=== PATIENT | female | born 1980 | race Caucasian/White ===

== ENCOUNTER 2020-05-23 08:18 | Outpatient (REF) | payer OTHER, SELFPAY | END 2020-05-23 08:19 | disposition home or self-care (01) | LOC: HO.WFDLDS 08:18 | PROVIDERS: PCP Pediatrics; Visit Provider Internal Medicine | DX: Z20.828 Contact with and (suspected) exposure to other viral communicable diseases (principal) | CPT/HCPCS: 87635 ==

== ENCOUNTER 2020-12-12 14:50 | Outpatient (REF) | payer OTHER, SELFPAY ==
[2020-12-13 11:25] LABS: BV Int Neg Control Negative (Negative); BV Int Pos Control Positive (Positive)
[2020-12-13 12:06] LABS: CT PCR NOT DETECTED (Not Detect.); NG PCR NOT DETECTED (Not Detect.)
== END 2020-12-12 14:51 | disposition home or self-care (01) ==
LOC: HO.LAB 14:50
PROVIDERS: PCP Pediatrics; Referring Provider Pediatrics; Visit Provider Obstetrics & Gynecology
DX: Z01.419 Encounter for gynecological examination (general) (routine) without abnormal findings (principal); Z11.3 Encounter for screening for infections with a predominantly sexual mode of transmission
CPT/HCPCS: 87480; 87491; 87510; 87591; 87660

== ENCOUNTER 2021-04-27 14:54 | Outpatient (REF) | payer OTHER, SELFPAY ==
--- NOTE | ~2021-04-27 | MM_ITS ---
EXAMINATION: MM SCREENING DIGITAL BREAST TOMOSYNTHESIS, BILATERAL CLINICAL INFORMATION: Screening. Asymptomatic. The lifetime risk of breast cancer based on the Tyrer-Cuzick Model is 15%. COMPARISON: Mammography: 04/25/2020, 11/18/2018 (baseline). TECHNIQUE: Digital breast tomosynthesis is performed in both the craniocaudal and mediolateral oblique views along with computer-aided detection (CAD). Synthesized 2D images are generated from the tomosynthesis. Additional exaggerated left CC view is provided. FINDINGS: The breasts are heterogeneously dense, which may obscure small masses (ACR BI-RADS breast composition Category c). There are no significant masses, abnormal calcifications, or other abnormalities. No developing density. No significant changes. The skin contours are smooth. MM/MM tomosynthesis screening BI IMPRESSION: No mammographic evidence of malignancy. ASSESSMENT: BI-RADS 1: Negative RECOMMENDATION: Routine annual mammography screening. This patient's information was entered into a reminder system with a target due date for their next mammogram.
== END 2021-04-27 14:55 | disposition home or self-care (01) ==
LOC: HO.MAMMO 14:54
PROVIDERS: PCP Pediatrics; Visit Provider Obstetrics & Gynecology
DX: Z12.31 Encounter for screening mammogram for malignant neoplasm of breast (principal)
CPT/HCPCS: 77063; 77067

== ENCOUNTER 2022-02-12 14:38 | Outpatient (REF) | payer OTHER, SELFPAY ==
[2022-02-16 12:42] LABS: HPV mRNA E6/E7 rflx Not Detected (Not Detected)
== END 2022-02-12 14:39 | disposition home or self-care (01) ==
LOC: HO.LAB 14:38
PROVIDERS: Visit Provider Advanced Practice Midwife
DX: Z01.419 Encounter for gynecological examination (general) (routine) without abnormal findings (principal); Z11.51 Encounter for screening for human papillomavirus (HPV)
CPT/HCPCS: 87624; 88142

== ENCOUNTER 2022-04-30 14:33 | Outpatient (REF) | payer OTHER, SELFPAY ==
--- NOTE | ~2022-04-30 | MM_ITS ---
EXAMINATION: MM SCREENING DIGITAL BREAST TOMOSYNTHESIS, BILATERAL CLINICAL INFORMATION: Screening. Asymptomatic. The lifetime risk of breast cancer based on the Tyrer-Cuzick Model is 15%. COMPARISON: Mammography: 04/27/2021, 04/25/2020, 11/18/2018 (baseline) TECHNIQUE: Digital breast tomosynthesis is performed in both the craniocaudal and mediolateral oblique views along with computer-aided detection (CAD). Synthesized 2D images are generated from the tomosynthesis. FINDINGS: There are scattered areas of fibroglandular density (ACR BI-RADS breast composition Category b). There are no significant masses, abnormal calcifications, or other abnormalities. Parenchymal pattern is similar to prior studies. There is no developing density or architectural abnormality. The axilla are unremarkable. Mild chronic nipple retraction is stable. No skin thickening. MM/MM tomosynthesis screening BI IMPRESSION: No significant changes from prior studies. ASSESSMENT: BI-RADS 2: Benign RECOMMENDATION: Routine annual mammography screening. This patient's information was entered into a reminder system with a target due date for their next mammogram.
== END 2022-04-30 14:34 | disposition home or self-care (01) ==
LOC: HO.MAMMO 14:33
PROVIDERS: Visit Provider Pediatrics
DX: Z12.31 Encounter for screening mammogram for malignant neoplasm of breast (principal)
CPT/HCPCS: 77063; 77067

== ENCOUNTER 2023-02-14 11:14 | Outpatient (AMB) | payer OTHER, SELFPAY ==
--- NOTE | 2023-02-14 11:19 | A.OFFVIS_ITS ---
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 Scribed for CLEMENT Gaston by Shabana Franz medical detailist, on 02/14/2023 EST. Business Improvement Manager Required: No Information Interpreted: non-clinical & clinical Photogrammetric Engineer: Photogrammetric Engineer Present (Sisi BURRIS) Accompanied by: Self / Same As Patient Allergies No Known Allergies Allergy (Verified 02/14/23 11:24) Is last menstrual period known: Yes HPI HPI Comments History of Present Illness Details She is a premenopausal woman presenting for annual exam. She admits to eating healthy and tries to stay active with exercise. Currently sexually active. Uses OCP's continuously, and is experiencing light spotting during time menses should occur. She denies any contraindications to control such as: migraines with aura, history of DVT or pulmonary emboli, high blood pressure, liver disease, thrombolic disorders, Lupus, +RYDER, or smoking. Denies vaginal itching and irritation. Vaginal dryness. She has some irritation with K-Y jelly use, an is wondering what to use as a replacement. Denies family hx of colon and ovarian cancer. Last pap smear 02/13/22 Last mammogram 04/30/22 [facility] Medical History Abnormal Pap smear of cervix Gallstone of bile duct with obstruction Surgical History History of loop electrical excision procedure (LEEP) Hx of appendectomy Hx of cholecystectomy Family History Sister Breast cancer, Onset Age: 47 Father HTN (hypertension) Mother HTN (hypertension) Social History Household Members: None Housing: House Alcohol intake: current Alcohol intake frequency: holidays/special occasions only Patient Tobacco Use Status: Former Tobacco user service: No Current occupational status: employed 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 ,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 Sexual orientation: Straight/Heterosexual Gender identity: Female Female Reproductive History Menstrual Age of Menarche: 14 control method: pills Total pregnancies: 3 Full term: 2 Number of Living Children: 2 Ab induced: 1 Date of last pap smear: 02/13/22 Date of Mammogram: 04/30/22 Physical Exam Vital Signs: Last Vital Signs BP 116/70 02/14/23 11:23 BMI result Body Mass Index 25.8 Const General: cooperative, healthy appearing, no acute distress, well developed and alert Orientation/consciousness: patient oriented x3 HEENT Head: Yes normal to inspection Eyes General: appearance normal, both eyes and all related structures Neck Neck: Yes normal visual inspection Thyroid: Thyroid normal Chest Chest palpation & inspection: normal inspection of the chest Breast/axilla inspection: normal inspection of the breasts (no puckering, dimpling, peau de orange, retraction, discharge, masses) Breast/axilla palpation: normal palpation of the breasts Resp Effort & Inspection: normal respiratory effort GI Inspection: Yes normal to inspection Palpation (GI): Soft to palpation (to palpation) Rectal Exam - Female: deferred General: Yes bladder normal to inspection External Female Exam: normal external appearance and normal appearance of the urethra Speculum Exam - Vagina: normal appearance of the vagina, normal palpation and normal vaginal discharge Speculum Exam - Cervix: normal appearance of the cervix and normal palpation Bimanual exam- vagina & uterus: normal palpation and normal palpation Bimanual Exam- Adnexa, other: normal adnexae and no masses Skin General skin exam: no rashes or lesions noted Neuro General: patient oriented x3 Cognition (Neuro): normal cognition Extrem General: Yes normal to inspection Psych Attitude: cooperative Thought process: Normal thought process present Assessment & Plan Assessment & Plan (1) Encounter for annual routine gynecological examination: Code(s): Z01.419 - Encounter for gynecological examination (general) (routine) without abnormal findings Plan Discussed: Current recommendations for pap smears per ASCCP guidelines Breast awareness and periodic self breast exams. Maintaining a healthy lifestyle including a well balanced diet and routine exercise. Warnings: go to ER if and loss of vision/blindness, severe headache, chest pain or difficulty breathing, severe abdominal pain, or any pain or swelling in an extremity. Recommend Replens, Astroglide or coconut oil for vaginal dryness. All of her questions and concerns were addressed to the best of my ability. RTO in one year for AG. Medications: Refilled norgestimate-ethinyl estradiol 0.25-35 mg-mcg Skip the placebo pills, starting a new pack every 3 weeks 1 tab PO DAILY 84 tabs 4RF Z30.40 - Encounter for surveillance of contraceptives, unspecified Coding Level of Care Code Est Pt Prev Care 40-64y(33715) Diagnoses Encounter for annual routine gynecological examination Z01.419
[2023-02-14 11:23] VITALS: BP 116/70; BMI 25.8
== END 2023-02-14 11:55 | disposition home or self-care (01) ==
LOC: HO.HWS 11:14
PROVIDERS: PCP Pediatrics; Visit Provider Advanced Practice Midwife
DX: Z01.419 Encounter for gynecological examination (general) (routine) without abnormal findings (principal)
CPT/HCPCS: 99396

== ENCOUNTER → 2023-02-14 11:14 | Outpatient (BNVA) | payer OTHER, SELFPAY | PROVIDERS: PCP Pediatrics; Visit Provider Advanced Practice Midwife ==

== ENCOUNTER 2023-05-06 14:49 | Outpatient (REF) | payer OTHER, SELFPAY ==
--- NOTE | ~2023-05-06 | MM_ITS ---
EXAMINATION: MM SCREENING DIGITAL BREAST TOMOSYNTHESIS, BILATERAL CLINICAL INFORMATION: Screening. Asymptomatic. The patient's family history breast cancer is significant for her sister having been diagnosed at age 48. COMPARISON: Mammography: This study is compared with prior exams dating back to 2019. TECHNIQUE: Digital breast tomosynthesis is performed in both the craniocaudal and mediolateral oblique views along with computer-aided detection (CAD). Synthesized 2D images are generated from the tomosynthesis. FINDINGS: The breasts are heterogeneously dense, which may obscure small masses (ACR BI-RADS breast composition Category c). In the 11-12 o'clock region of the left breast, there is a focal asymmetry which warrants additional mammographic imaging. Sonography may be performed at the discretion of the diagnostic radiologist. In the right breast, no are no significant masses, abnormal calcifications, or other abnormalities. MM/MM tomosynthesis screening BI IMPRESSION: Focal asymmetry of the left 11-12 12:00 region of the left breast warrants additional mammographic imaging. Sonography is at the discretion of the diagnostic radiologist. No mammographic signs of malignancy right breast. ASSESSMENT: BI-RADS BI-RADS 0 - Incomplete: Needs additional Imaging. RECOMMENDATION: 1. Additional views of the right breast 2. Targeted ultrasound if warranted after review of the additional views. 3. Radiology department staff will contact the patient for additional imaging. Additional Imaging required This examination should not preclude the clinical evaluation of a suspicious palpable abnormality. This patient's information was entered into a reminder system with a target due date for their next mammogram.
== END 2023-05-06 14:50 | disposition home or self-care (01) ==
LOC: HO.MAMMO 14:49
PROVIDERS: Visit Provider Pediatrics
DX: Z12.31 Encounter for screening mammogram for malignant neoplasm of breast (principal)
CPT/HCPCS: 77063; 77067

== ENCOUNTER → 2023-05-06 15:00 | Outpatient (BNV) | payer OTHER, SELFPAY | PROVIDERS: Visit Provider Radiology Diagnostic Radiology | DX: Z12.31 Encounter for screening mammogram for malignant neoplasm of breast (principal) | CPT/HCPCS: 77063; 77067 ==

== ENCOUNTER 2023-07-02 14:57 | Outpatient (REF) | payer OTHER, SELFPAY ==
--- NOTE | ~2023-07-02 | US_ITS ---
EXAMINATION: MM DIAGNOSTIC DIGITAL BREAST TOMOSYNTHESIS, LEFT US BREAST LIMITED, LEFT MAMMOGRAPHY: CLINICAL INFORMATION: Callback from screening for focal asymmetric density central left breast seen on screening exam. The patient's family history breast cancer is significant for her sister having been diagnosed at age 48. COMPARISON: Mammography: 05/06/2023, and dating back to 11/18/2018. TECHNIQUE: Digital breast tomosynthesis is performed in the following views: Full-field left LANA mediolateral view, and 3-D spot compression left CC and left MLO views. FINDINGS: The breasts are heterogeneously dense, which may obscure small masses (ACR BI-RADS breast composition Category c). Spot compression and diagnostic views demonstrate a persistent irregular asymmetric density within the central left breast approximately 11:00 axis, highly suspicious. This is seen on all 3 diagnostic views. This will be evaluated by ultrasound. ULTRASOUND: CLINICAL INFORMATION: Evaluate focal asymmetric density central left breast. COMPARISON: No prior ultrasound. TECHNIQUE: Targeted sonographic evaluation was performed using a high frequency linear transducer. Attention was paid to the central left breast and axilla. Selected archived documentation. FINDINGS: LEFT BREAST: Within the 11:00 axis left breast, 1 cm from the nipple, there is a markedly hypoechoic markedly irregular lobulated vascular mass with some posterior acoustic shadowing, with estimated diameter of approximately 2.3 x 2.7 by a 3.2 cm. This correlates well with the abnormality seen on mammography within the central left breast. Ultrasound-guided biopsy recommended. Within the left axilla, there is a large pathologic lymph node measuring 3.9 x 2.3 x 1.9 cm, with near complete effacement of the fatty hilum, and cortex thickened up to 2.0 cm. Ultrasound-guided biopsy recommended of this abnormality as well. US/US breast LT limited mamm only IMPRESSION: 1. Large irregular spiculated hypoechoic lobulated mass within the central left breast measuring up to 3.2 cm. This is highly suspicious and ultrasound-guided biopsy recommended. 2. Pathologic enlarged left axillary lymph node measuring up to 3.9 cm with cortex measuring up to 2.0 cm thickness. This is also highly suspicious and ultrasound-guided biopsy is recommended. Findings and recommendations were discussed with the patient in detail, and also with the patient's sister. OVERALL ASSESSMENT: Mammography: BI-RADS 5 - Highly suggestive of malignancy Ultrasound: BI-RADS 5 - Highly suggestive of malignancy RECOMMENDATION: Biopsy recommended
== END 2023-07-02 14:58 | disposition home or self-care (01) ==
LOC: HO.MAMMO 14:57
PROVIDERS: PCP Internal Medicine; Visit Provider Internal Medicine
DX: R92.8 Other abnormal and inconclusive findings on diagnostic imaging of breast (principal)
CPT/HCPCS: 76642; 77061; 77065

== ENCOUNTER → 2023-07-02 15:00 | Outpatient (BNV) | payer OTHER, SELFPAY | PROVIDERS: PCP Internal Medicine; Visit Provider Radiology Diagnostic Radiology | DX: N63.22 Unspecified lump in the left breast, upper inner quadrant (principal) | CPT/HCPCS: 76642; 77061; 77065 ==

== ENCOUNTER 2023-07-08 08:33 | Outpatient (AMB) | payer OTHER, SELFPAY ==
--- NOTE | 2023-07-08 08:34 | A.OFFVIS_ITS ---
Intake Vital Signs 07/08/23 08:45 Height 5 ft 8 in Weight 179 lb 2 oz BMI 27.2 BP 130/80 Blood Pressure Location Lt brachial Position Sitting Intake Visit Reasons: US BX LEFT BREAST Intake Note: Patient is seen in office for ultrasound biopsy consult of the left breast. Pt c/o: denies any concerns regarding the breast, no lump, bump, discharge, redness, or prior breast surgeries Instructional Materials Director Required: No Tube Coverer: Tube Coverer Present Accompanied by: Self / Same As Patient Allergies No Known Allergies Allergy (Verified 07/08/23 08:45) HPI HPI Comments History of Present Illness Details 42-year-old female patient presenting with a recent screening mammogram with follow-up images obtained on 07/02/2023 which revealed a large, irregular, spiculated hypoechoic lobulated mass within the left breast centrally, measuring 3.2 cm felt to be highly suspicious for malignancy. This was confirmed on left breast ultrasound. In addition a left axillary lymph node enlargement was identified measuring up to 3.9 cm, also felt to be suspicious. Ultrasound biopsy was recommended (BI-RADS 5). She denies any palpable mass in either breast but does have some soreness in the left axilla. She denies any previous history of breast problems or breast surgery. She does report undergoing a flu vaccine in April and developed some soreness in the left arm following the injection. Family history is significant for her sister developing breast cancer at the age of 48. she is uncertain if any genetic testing was performed. She is with 1 AB. 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 Sexual orientation: Straight/Heterosexual Gender identity: Female Female Reproductive History Menstrual Age of Menarche: 14 Total pregnancies: 3 Number of Living Children: 2 Date of Mammogram: 07/02/23 Review of Systems Const All systems reviewed & are unremarkable except as noted in HPI and below Denies chills, Denies fever(s), Denies headache(s), Denies poor appetite and Denies weakness ENT Denies headache(s) Card Denies chest pain, Denies irregular heart rhythm, Denies palpitations and Denies dyspnea Resp Denies cough, Denies excessive phlegm production and Denies dyspnea GI Denies abdominal pain, Denies bloating, Denies change in bowel habits, Denies constipation, Denies heartburn, Denies diarrhea, Denies nausea and Denies vomiting Denies urinary frequency and Denies nipple discharge Musc Denies back pain, Denies muscle weakness and Denies numbness Skin/Breast Details: Chronically inverted nipples bilaterally Denies breast swelling, Denies breast skin changes, Denies breast pain, Denies changing lesions, Denies nipple discharge and Denies unusual bruising Neuro Denies headache(s), Denies numbness, Denies paresthesias and Denies weakness Psych Denies anxiety and Denies depression Endo Denies palpitations Delgado/Lymph Denies lymphadenopathy Physical Exam Const General: cooperative and no acute distress Nutritional Appearance: well nourished Orientation/consciousness: patient oriented x3 Limitations: no limitations HEENT Head: Yes normocephalic and Yes atraumatic Ears: hearing grossly normal bilaterally Chest Other: bilateral inverted nipples. Left breast: No skin change, no nipple retraction, no nipple discharge, no palpable mass, no enlarged lymph nodes. No palpable mass noted in the 11 o'clock position corresponding to the mammographic findings. Right breast: No skin change, no nipple retraction, no nipple discharge, no palpable mass, no enlarged lymph nodes Resp Effort & Inspection: normal respiratory effort, no audible wheezes, no cough and no respiratory distress Cardio Jugular venous distension: no JVD GI Inspection: Yes normal to inspection Skin Other: Warm, dry, no rash Neuro General: patient oriented x3 Extrem General: Yes no clubbing, cyanosis or edema Assessment & Plan Assessment & Plan (1) Abnormal ultrasound of breast: Code(s): R92.8 - Other abnormal and inconclusive findings on diagnostic imaging of breast Plan 42-year-old female patient found to have a spiculated mass in the left breast in the central portion on a recent mammogram felt to be highly suspicious of malignancy (BI-RADS 5 ). This was confirmed on ultrasound as well. A large lymph node is also identified in the left axilla felt to be suspicious. Ultrasound-guided core biopsy of both lesions is recommended. She is scheduled at the [facility] for later today ( 07/08/2023) for this ultrasound-guided core biopsy. We also discussed genetic testing given her strong family history of breast cancer. This can be performed in her follow-up visits. I reviewed the procedure in detail and she expressed understanding and agrees with the plan. She will follow-up in 1 week review the pathology results. She is welc ome to call sooner for any questions or problems. Orders: Orders US breast ndl core biopsy LT Today R92.8 - Other abnormal and inconclusive findings on diagnostic imaging of breast US biopsy lymph node Today R59.0 - Localized enlarged lymph nodes Coding Level of Care Code New Pt Level 4 (81782) Diagnoses Abnormal ultrasound of breast R92.8
[2023-07-08 08:45] VITALS: BP 130/80; BMI 27.2
== END 2023-07-08 09:11 | disposition home or self-care (01) ==
PROVIDERS: PCP Internal Medicine; Visit Provider Surgery
DX: R92.8 Other abnormal and inconclusive findings on diagnostic imaging of breast (principal)
CPT/HCPCS: 99204

== ENCOUNTER 2023-07-08 09:50 | Outpatient (REF) | payer OTHER, SELFPAY ==
--- NOTE | ~2023-07-08 | MM_ITS ---
PROCEDURE: US GUIDED BREAST BIOPSY, (2 SITES) left breast 12:00 axis and left axilla enlarged lymph node. CLINICAL INFORMATION: -Large irregular mass left breast 12:00 axis recommended for biopsy. -Enlarged lymph node left axillary recommended for biopsy. COMPARISON: 07/02/2023, 05/06/2023. PROCEDURAL DETAILS: The details of the procedure, as well as the risks, benefits, and alternatives to the procedure were explained to the patient in detail and all of her questions were answered, after which written informed consent was obtained. Site and side were confirmed. SITE A: Sonography revealed a large multilobulated hypoechoic shadowing mass measuring up to 3.2 cm in the central left breast at the 11:00 to 12:00 axis. A time-out was performed, the lesion intended for biopsy was targeted, and the skin of the left breast was then prepped and draped in the usual sterile fashion. Using sonographic guidance, sterile technique, and 1% lidocaine without epinephrine for local anesthesia, multiple core biopsies were obtained through the targeted area with a 14G spring loaded Sertera core biopsy device. There was real-time confirmation of appropriate needle passage. Sampling was documented. At the completion of tissue sampling, a single butterfly-shaped metallic clip was deposited at the biopsy site. SITE B: sonography revealed a markedly enlarged left axillary lymph node measuring up to 3.4 cm in diameter with cortex measuring up to 2.0 cm. A time-out was performed, the lesion intended for biopsy was targeted, and the skin of the left axilla was then prepped and draped in the usual sterile fashion. Using sonographic guidance, sterile technique, and 1% lidocaine without epinephrine for local anesthesia, multiple core biopsies were obtained through the targeted area with a 14G spring loaded Sertera core biopsy device. There was real-time confirmation of appropriate needle passage. Sampling was documented. At the completion of tissue sampling, a single open coil-shaped metallic clip was deposited at the biopsy site within the lymph node. There was no evidence of immediate complication. SPECIMEN: Appropriate samples obtained. DIGITAL POST-PROCEDURE MAMMOGRAPHY: Breast density: The tissue is heterogeneously dense which may obscure small masses. BI-RADS version 5, category C. The postprocedure 2-view direct digital mammogram reveals satisfactory positioning of the SITE A butterfly-shaped biopsy clip. The SITE B open coil biopsy clip could not be visualized due to its position within the axilla. Sonographically it is documented in good position. The patient tolerated the procedure well and, after assuring adequate hemostasis, was discharged in good condition after reviewing postbiopsy breast care instructions. Final pathology results are pending. MM/MM tomosynthesis diagnostic LT IMPRESSION: 1. No immediate complication from ultrasound-guided percutaneous biopsy left breast mass and pathologic left axillary lymph node. 2. Ultrasound was used to localize and guide marker clip placement at both sites. 3. The 2-view direct digital postprocedure mammogram reveals satisfactory positioning of the butterfly-shaped metallic biopsy clip within the mass at about 7-12:00 left breast. The open coil biopsy clip could not be visualized within the left axillary lymph node due to its position although sonographically was documented in good position. 4. Final pathology results are pending. A separate report with final recommendations will be issued once these results are made available.
[2023-07-08] MEDS: Lidocaine HCl 1 % 20 ML VIAL SUBCUT (12:26)
[2023-07-08] MEDS: Sodium Bicarbonate 8.4% 50 MEQ/50 ML VIAL SUBCUT (12:27)
== END 2023-07-08 09:51 | disposition home or self-care (01) ==
LOC: HO.MAMMO 09:50
PROVIDERS: PCP Internal Medicine; Visit Provider Surgery
DX: R92.8 Other abnormal and inconclusive findings on diagnostic imaging of breast (principal); R59.0 Localized enlarged lymph nodes
CPT/HCPCS: 19083; 38505; 76942; 77061; 77065; 88305; 88342; 88360; A4648; C1894

== ENCOUNTER → 2023-07-08 10:00 | Outpatient (BNV) | payer OTHER, SELFPAY | PROVIDERS: PCP Internal Medicine; Visit Provider Radiology Diagnostic Radiology | DX: R92.8 Other abnormal and inconclusive findings on diagnostic imaging of breast (principal) | CPT/HCPCS: 19083; 38505; 76942; 77065 ==

== ENCOUNTER 2023-07-14 13:02 | Outpatient (AMB) | payer OTHER, SELFPAY ==
--- NOTE | 2023-07-14 13:06 | MHC.OFFVIS ---
Intake Vital Signs 07/14/23 13:10 Height 5 ft 8 in Weight 17 lb BMI 2.6 BP 187/108 H Blood Pressure Location Lt brachial Position Sitting Pulse 105 H Intake Visit Reasons: US BX LEFT BREAST~ results Intake Note: Patient is seen in office for ultrasound guided biopsy results, following left breast lump. Patient c/o: sore and tender after bx, here for results Accompanied by: Sister Allergies No Known Allergies Allergy (Verified 07/14/23 13:14) Medication List - Last Reconciled 07/14/23 by Elliott Clements MD loratadine (Claritin) 10 mg PO DAILY norgestimate-ethinyl estradiol 0.25-35 mg-mcg 1 tab PO DAILY HPI HPI Comments History of Present Illness Details 42-year-old female patient presenting with a recent screening mammogram with follow-up images obtained on 07/02/2023 which revealed a large, irregular, spiculated hypoechoic lobulated mass within the left breast centrally, measuring 3.2 cm felt to be highly suspicious for malignancy. This was confirmed on left breast ultrasound. In addition a left axillary lymph node enlargement was identified measuring up to 3.9 cm, also felt to be suspicious. Ultrasound biopsy was recommended (BI-RADS 5). She denies any palpable mass in either breast but does have some soreness in the left axilla. She denies any previous history of breast problems or breast surgery. She does report undergoing a flu vaccine in April and developed some soreness in the left arm following the injection. Family history is significant for her sister developing breast cancer at the age of 48. Her sister did not undergo genetic testing. She is with 1 AB. On examination no definite palpable mass was noted. She subsequently underwent ultrasound-guided core biopsy of both the breast mass and axillary lymph node of the left breast on 07/08/2023. She returns today to review the pathology results. Pathology revealed a left breast invasive ductal carcinoma, grade 2-3, ER/NC positive, HER2 Krissy negative, Ki-67 40% (high); lymph node left axilla positive for metastatic carcinoma consistent with breast primary; [id number] (stage IIB). [facility] Medical History (Updated 07/14/23 @ 13:53 by Elliott Clements MD) Invasive ductal carcinoma of breast, stage 2 Abnormal Pap smear of cervix Gallstone of bile duct with obstruction Surgical History History of tonsillectomy History of loop electrical excision procedure (LEEP) Hx of cholecystectomy Family History Sister Breast cancer, Onset Age: 47 Father HTN (hypertension) Mother HTN (hypertension) Social History Household Members: None Housing: House Alcohol intake: current Alcohol intake frequency: holidays/special occasions only Patient Tobacco Use Status: Former Tobacco user service: No Current occupational status: employed 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 ,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 Sexual orientation: Straight/Heterosexual Gender identity: Female Female Reproductive History Menstrual Age of Menarche: 14 Review of Systems Const All systems reviewed & are unremarkable except as noted in HPI and below Denies chills, Denies fever(s), Denies headache(s), Denies poor appetite and Denies weakness ENT Denies headache(s) Card Denies chest pain, Denies irregular heart rhythm, Denies palpitations and Denies dyspnea Resp Denies cough, Denies excessive phlegm production and Denies dyspnea GI Denies abdominal pain, Denies bloating, Denies change in bowel habits, Denies constipation, Denies heartburn, Denies diarrhea, Denies nausea and Denies vomiting Denies urinary frequency and Denies nipple discharge Musc Denies back pain, Denies muscle weakness and Denies numbness Skin/Breast Details: Chronically inverted nipples bilaterally Denies breast swelling, Denies breast skin changes, Denies breast pain, Denies changing lesions, Denies nipple discharge and Denies unusual bruising Neuro Denies headache(s), Denies numbness, Denies paresthesias and Denies weakness Psych Denies anxiety and Denies depression Endo Denies palpitations Delgado/Lymph Denies lymphadenopathy Physical Exam Vital Signs: Last Vital Signs Pulse 105 H 07/14/23 13:10 BP 187/108 H 07/14/23 13:10 BMI result Body Mass Index 2.6 Const General: cooperative and no acute distress Nutritional Appearance: well nourished Orientation/consciousness: patient oriented x3 Limitations: no limitations HEENT Head: Yes normocephalic and Yes atraumatic Ears: hearing grossly normal bilaterally Chest Other: Exam deferred Resp Effort & Inspection: normal respiratory effort, no audible wheezes, no cough and no respiratory distress Cardio Jugular venous distension: no JVD GI Inspection: Yes normal to inspection Skin Other: Warm, dry, no rash Neuro General: patient oriented x3 Extrem General: Yes no clubbing, cyanosis or edema Assessment & Plan Assessment & Plan (1) Invasive ductal carcinoma of breast, stage 2: Code(s): C50.919 - Malignant neoplasm of unspecified site of unspecified female breast Qualifiers: Laterality: left Qualified Code(s): C50.912 - Malignant neoplasm of unspecified site of left female breast Plan 42-year-old female patient found to have a spiculated mass of the left breast with enlarged lymph nodes noted on recent mammogram and ultrasound, biopsy proven invasive ductal carcinoma grade 2-3, ER/NC positive, HER2 Krissy negative, Ki-67 high, positive left axillary lymph node with metastatic breast CA. The findings reviewed with the patient and her sister in detail and a copy of the report provided. Because of the large size of the tumor as well as presence of metastatic disease and high proliferation index, I suggested obtaining a oncology consultation prior to surgery. She also is a strong candidate for genetic testing with her sister's history. Dr. Allen was contacted and agreed to see the patient tomorrow, 07/15/2023 at 08:00. Follow-up will be based on oncology evaluation. Patient expressed understanding and agrees with the plan. Orders: Referrals Hematology & Oncology Referral C50.919 - Malignant neoplasm of unspecified site of unspecified female breast Coding Level of Care Code Est Pt Level 3 (53281) Diagnoses Infiltrating ductal carcinoma of left breast, stage 2 C50.912 Laterality: left
[2023-07-14 13:10] VITALS: BP 187/108; PULSE 105
== END 2023-07-14 13:28 | disposition home or self-care (01) ==
PROVIDERS: PCP Internal Medicine; Visit Provider Surgery
DX: C50.912 Malignant neoplasm of unspecified site of left female breast (principal)
CPT/HCPCS: 99214

== ENCOUNTER → 2023-07-14 13:02 | Outpatient (BNVA) | payer OTHER, SELFPAY | PROVIDERS: PCP Internal Medicine; Visit Provider Surgery | DX: R92.8 Other abnormal and inconclusive findings on diagnostic imaging of breast (principal); R59.0 Localized enlarged lymph nodes ==

== ENCOUNTER → 2023-07-15 07:56 | Outpatient (BNV) | payer OTHER, SELFPAY | PROVIDERS: PCP Internal Medicine; Visit Provider Internal Medicine | DX: C50.412 Malignant neoplasm of upper-outer quadrant of left female breast (principal) | CPT/HCPCS: 99205; 99213; 99214; 99215; G2211 ==

== ENCOUNTER → 2023-07-16 09:10 | Outpatient (REF) | payer OTHER, SELFPAY ==
--- NOTE | 2023-07-16 09:13 | CA_ITS ---
Transthoracic Echocardiogram Patient (Last, First, Middle): Mariana Watts F Gender: Female Date of : 1980 Age: 42 Procedure Date: 07/16/2023 Procedure Type: Transthoracic Echocardiogram Location: OP Height: 172.72 cm Weight: 79.38 kg BSA: 1.93 m2 Heart Rate: bpm BP: 140 / 78 mmHg Paradichlorobenzene Machine Operator: MOOKIE Referring MD: Shanita Allen MD Healthcare Sales Representative: Bryn Spears MD Symptoms: pre chemo eval Study Quality: Adequate with contrast ECG Rhythm: Sinus Conclusions: - 1. Normal LV systolic function with LVEF of 60-65% 2. Normal cardiac valvular Dopplers 3. Upper limits normal ascending aortic size 4. Normal RV systolic pressure 5. No gross pericardial effusion Findings Procedure Information Contrast agent, definity, is being given per protocol without apparent complications. Left Ventricle Normal left ventricular size, thickness, and systolic function. The visually estimated ejection fraction is between 60-65%. Spectral Doppler is indicative of a normal filling pattern. Peak GLS is -18.3%, within normal limits. Right Ventricle Normal right ventricular cavity size and systolic function. Atria Both atria are normal in size. Interatrial shunt cannot be excluded. Aortic Valve The aortic valve structure and function is likely normal. There is no aortic valve stenosis. There is no aortic valve regurgitation. Mitral Valve Normal mitral valve structure and function. There is trace mitral valve regurgitation. There is no mitral valve stenosis. Pulmonic Valve The pulmonic valve is likely normal. Tricuspid Valve Likely normal tricuspid valve structure and function. There is trace tricuspid valve regurgitation. The right ventricular systolic pressure is normal. The right ventricular systolic pressure is 20 mmHg. Normal right atrial pressure. There is no evidence of pulmonary hypertension. Great Vessels The pulmonary artery was not well visualized. Venous The inferior vena cava is normal in size and collapses greater than 50% with inspiration. Pericardium/Pleural There is no evidence of pericardial effusion. Prior Study Comparison No prior study available for comparison. Measurements 2D Linear Measurements IVSd: 0.91 0.6-0.9/0.6-1.0 cm LVIDd: 5.03 3.9-5.3/4.2-5.9 cm LVIDd Index: 2.61 2.4-3.2/2.2-3.1 cm/m2 LVIDs: 3.09 2.0-3.6 cm LVPWd: 0.81 0.7-1.1 cm LA Diam: 3.20 2.7-3.8/3.0-4.0 cm LAIDs Index: 1.66 1.5-2.3 cm/m2 LV Mass: 187.64 67-162/88-224 g LV Mass Index: 97.22 43-95/49-115 g/m2 LVOT Diam: 2.10 3.0+(-)1.3 cm 2D Systolic Function EF 4C: 63.60 >55% EF 2C: 60.30 >55% EF BiP: 61.60 >55% Mitral Valve MV Pk E: 0.80 MV PK A: 0.73 MV Decel Time: 181.00 E/A: 1.10 E'Lateral: 9.36 E'Medial: 5.77 E/E' Med: 13.80 E/E' Lat: 8.50 PHT: 53.00 MVA PHT: 4.15 Decel Sully: 4.41 Aortic Valve AoV Pk Marcus: 1.30 AoV Pk Grad: 7.00 RUPESH: 3.01 LVOT LVOT Pk Marcus: 1.03 LVOT Mn Marcus: 0.71 LVOT VTI: 0.21 LVOT Pk Grad: 4.00 LVOT Mn Grad: 2.00 LVOT Diam: 2.10 LVOT Area: 3.46 Diastolic Function MV Pk E: 0.80 MV Pk A: 0.73 E/A: 1.10 E'Medial: 5.77 E/E' Med: 13.80 E' Laterial: 9.36 E/E' Lat: 8.50 Right Ventricle TAPSE (mm): 18.70 TVS' Marcus: 11.20 Tricuspid Valve TR Pk Marcus: 2.09 TR Pk Grad: 17.00 RA Press: 3.00 RVSP: 20.00 Great Vessels Aorta Sinus of Valsalva: 3.10 2.0-3.5 cm Ao Asc: 3.60 2.1-3.4 cm Pulmonary Veins Pulm Vein S/D 1.40 Pulmonary Valve PV Pk Marcus: 0.86 Peak PV Grad: 3.00 Updated in Other Vendor System with Status of Final Bryn Spears MD electronically signed on 07/16/2023 6:20:02 PM with status of Final
== END ==
LOC: HO.CARD 09:10
PROVIDERS: PCP Internal Medicine; Visit Provider Internal Medicine
DX: C50.919 Malignant neoplasm of unspecified site of unspecified female breast (principal)
CPT/HCPCS: 93306; 93356; Q9957

== ENCOUNTER → 2023-07-16 09:13 | Outpatient (BNV) | payer OTHER, SELFPAY | PROVIDERS: PCP Internal Medicine; Visit Provider Internal Medicine Cardiovascular Disease | DX: Z01.818 Encounter for other preprocedural examination (principal) | CPT/HCPCS: 93306 ==

== ENCOUNTER 2023-07-22 11:13 | Day surgery (SDC) | payer OTHER, SELFPAY ==
--- NOTE | ~2023-07-22 | IR_ITS ---
PROCEDURE: IR INSERTION OF TUNNEL CATHETER CLINICAL INFORMATION: breast ca COMPARISON: None available. TECHNIQUE: All elements of maximal sterile barrier technique followed including use of cap, mask, sterile gown, sterile gloves, a sterile full body drape and hand hygiene. Also followed skin preparation with 2% chlorhexidine for cutaneous antisepsis, and sterile ultrasound preparation with sterile gel and probe cover when applicable. FINDINGS: Under ultrasound guidance a micropuncture needle was placed into the right internal jugular vein. A guidewire and catheter were advanced into the right atrium. A Peel-away sheath was placed. The pocket was created along the anterior chest wall. The catheter was tunneled beneath the skin surface and subsequently through the peel-away sheath into the midportion of the right atrium. The access needle was placed into the port. Blood was easily aspirated. The port was flushed with heparinized saline. 3L absorbable Vicryl sutures were utilized to close the incision site. IR/IR cvc insert tunnel w prt/supervisor floor assembly IMPRESSION: Placement of a duc catheter via the right internal jugular approach. The tip of the catheter is in good position within the midportion of the right atrium.
--- NOTE | ~2023-07-22 | IR_ITS ---
PROCEDURE: IR INSERTION OF TUNNEL CATHETER CLINICAL INFORMATION: breast ca COMPARISON: None available. TECHNIQUE: All elements of maximal sterile barrier technique followed including use of cap, mask, sterile gown, sterile gloves, a sterile full body drape and hand hygiene. Also followed skin preparation with 2% chlorhexidine for cutaneous antisepsis, and sterile ultrasound preparation with sterile gel and probe cover when applicable. FINDINGS: Under ultrasound guidance a micropuncture needle was placed into the right internal jugular vein. A guidewire and catheter were advanced into the right atrium. A Peel-away sheath was placed. The pocket was created along the anterior chest wall. The catheter was tunneled beneath the skin surface and subsequently through the peel-away sheath into the midportion of the right atrium. The access needle was placed into the port. Blood was easily aspirated. The port was flushed with heparinized saline. 3L absorbable Vicryl sutures were utilized to close the incision site. IR/IR us guide venous access IMPRESSION: Placement of a duc catheter via the right internal jugular approach. The tip of the catheter is in good position within the midportion of the right atrium.
[2023-07-22 11:31] VITALS: BMI 26.8
[2023-07-22 12:33] LABS: UPreg QC Valid YES; Urine Pregnancy NEGATIVE (NEGATIVE)
[2023-07-22 14:55] VITALS: BP 129/79; PULSE 67; RESP 18; TEMP 36.5; O2SAT 96
[2023-07-22 15:10] VITALS: BP 122/76; PULSE 73; RESP 18; O2SAT 97
[2023-07-22] MEDS: Acetaminophen 325 MG TABLET 650 MG PO (15:15)
[2023-07-22 15:25] VITALS: BP 123/83; PULSE 69; RESP 18; O2SAT 97
[2023-07-22 15:40] VITALS: BP 133/92; PULSE 67; RESP 20; O2SAT 97
[2023-07-22 15:55] VITALS: BP 133/83; PULSE 76; RESP 20; TEMP 37.1; O2SAT 97
== END 2023-07-22 16:09 | disposition home or self-care (01) ==
PROVIDERS: Physician Assistant Surgical; PCP Internal Medicine; Visit Provider Radiology Vascular & Interventional Radiology
DX: Z45.2 Encounter for adjustment and management of vascular access device (principal); C50.912 Malignant neoplasm of unspecified site of left female breast; C77.3 Secondary and unspecified malignant neoplasm of axilla and upper limb lymph nodes; Z17.0 Estrogen receptor positive status [ER+]; Z80.3 Family history of malignant neoplasm of breast; Z87.891 Personal history of nicotine dependence
CPT/HCPCS: 36561; 76937; 81025; 99152; 99153; C1769; C1788; J0690; J1642; J1644; J2250; J2310; J2405; J3010

== ENCOUNTER → 2023-07-22 12:51 | Outpatient (BNV) | payer OTHER, SELFPAY | PROVIDERS: PCP Internal Medicine; Visit Provider Radiology Vascular & Interventional Radiology | DX: C50.919 Malignant neoplasm of unspecified site of unspecified female breast (principal) | CPT/HCPCS: 36561; 76937; 77001 ==

== ENCOUNTER 2023-07-24 13:12 | Outpatient (REF) | payer OTHER, SELFPAY ==
[2023-07-24] MEDS: iohexoL 350 MG/ML 100 ML INFUS..BTL IV (14:33)
== END 2023-07-24 13:13 | disposition home or self-care (01) ==
LOC: HO.CT 13:12
PROVIDERS: PCP Internal Medicine; Visit Provider Internal Medicine
DX: C50.919 Malignant neoplasm of unspecified site of unspecified female breast (principal)
CPT/HCPCS: 74177; Q9967

== ENCOUNTER 2023-07-25 13:20 | Outpatient (REF) | payer OTHER, SELFPAY ==
--- NOTE | ~2023-07-25 | CT_ITS ---
EXAMINATION: CT CHEST WITH CONTRAST CLINICAL INFORMATION: Increased tumor markers COMPARISON: None available. TECHNIQUE: Multidetector volumetric CT imaging of the chest was obtained after the administration of 65 mL of Omnipaque 350 intravenous contrast without immediate adverse reactions. Axial MIP volume rendering provided. Sagittal and coronal reformatted images were obtained. This CT examination was performed using dose optimization techniques as appropriate, variously including the following: *Automated exposure control *Adjustment of mA and/or kV according to patient size (this includes techniques or standardized protocols for targeted exams where dose is matched to indication/reason for exam; i.e. 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 Cholecystectomy clips. Clear lungs. LUNGS: The lungs are clear with no evidence of inflammation or nodules. MEDIASTINUM: Unremarkable thyroid. Mildly dilated esophagus. Tunneled right internal jugular central venous catheter with tip in the SVC/right atrial junction. Nonenlarged heart. No pericardial effusion. Nonaneurysmal aorta. Nonenlarged pulmonary arteries. PLEURA: There is no pleural effusion. No pleural mass or thickening. SOFT TISSUES AXILLA: Infiltrating 3.3 cm enhancing left medial breast lesion. Multiple enlarged left axillary lymph nodes, largest measuring 4.1 cm with biopsy clip and mild surrounding stranding. Small left subpectoral lymph nodes. Small right axillary lymph nodes. Small right supraclavicular lymph node. UPPER ABDOMEN: Status post cholecystectomy. 3 peripherally enhancing 4 and 5 mm left subdiaphragmatic nodules are identified. OSSEOUS STRUCTURES: No suspicious osseous lesions. CT/CT chest w IV con IMPRESSION: Large enhancing left breast lesion enlarged left axillary lymph nodes, patient with biopsy-proven invasive ductal carcinoma with metastatic lymphadenopathy. Concern for enhancing left subdiaphragmatic metastatic deposits. PET/CT recommended. Fleischner guidelines were followed.
[2023-07-25] MEDS: iohexoL 350 MG/ML 75 ML INFUS..BTL 65 ML IV (14:19)
== END 2023-07-25 13:21 | disposition home or self-care (01) ==
LOC: HO.CT 13:20
PROVIDERS: Visit Provider Internal Medicine
DX: C50.919 Malignant neoplasm of unspecified site of unspecified female breast (principal)
CPT/HCPCS: 71260; Q9967

== ENCOUNTER 2023-09-16 15:25 | Outpatient (REF) | payer OTHER, SELFPAY ==
--- NOTE | ~2023-09-16 | US_ITS ---
EXAMINATION: US DIAGNOSTIC ULTRASOUND BREAST, LEFT CLINICAL INFORMATION: The patient presents for evaluation of a left breast tumor and abnormal axillary lymph nodes in the setting of neoadjuvant chemotherapy. The patient's breast tumor is an invasive ductal carcinoma, grade 2-3. At the time of biopsy, the left breast tumor, located at the 11:00 position 1 cm from the nipple, measured 32 mm x 27 mm x 23 mm. The metastatic left axillary lymph sulma mass measured 39 mm x 23 mm x 19 mm with evidence of sulma matting. COMPARISON: The study is compared with prior mammographic and sonographic imaging dating back to June 2023.. TECHNIQUE: Ultrasound of the breast and left axilla is performed with real-time mackay scale imaging and color Doppler. FINDINGS: There is a heterogeneous, hypoechoic, irregular mass of the left breast at the 11:00 position, 1 cm from the nipple. This represents the primary breast cancer. It now measures 17 mm x 16 mm x 9 mm. This represents significant, positive response to neoadjuvant chemotherapy. Sonography of the left axilla shows the sulma mass to now measure 23 mm x 15 mm x 10 mm. The tissue marker placed at the time of biopsy is visible within the lymph node. This represents a significant positive response to neoadjuvant chemotherapy. Results are discussed with the patient at time of visit. US/US breast LT limited mamm only IMPRESSION: Significant decrease in size of left breast cancer and metastatic left axillary lymph nodes in the setting of neoadjuvant chemotherapy.. ASSESSMENT: BI-RADS 6 - Known biopsy proven malignancy RECOMMENDATION: Appropriate action is being taken. This patient's information was entered into a reminder system with a target due date for their next mammogram.
== END 2023-09-16 15:26 | disposition home or self-care (01) ==
LOC: HO.MAMMO 15:25
PROVIDERS: PCP Internal Medicine; Visit Provider Internal Medicine
DX: C50.912 Malignant neoplasm of unspecified site of left female breast (principal)
CPT/HCPCS: 76642

== ENCOUNTER → 2023-09-16 15:30 | Outpatient (BNV) | payer OTHER, SELFPAY | PROVIDERS: PCP Internal Medicine; Visit Provider Radiology Diagnostic Radiology | DX: C50.912 Malignant neoplasm of unspecified site of left female breast (principal) | CPT/HCPCS: 76642 ==

== ENCOUNTER 2023-10-23 08:00 | Inpatient (IN) | payer OTHER, SELFPAY ==
[2023-10-23] VITALS (36 sets, daily range): BP systolic 85–130; BP diastolic 42–77; PULSE 76–120; RESP 13–28; TEMP 36.3–39.3; O2SAT 95–99; BMI 27.2; BMI 27.3
--- NOTE | 2023-10-23 | ECG_ITS ---
Test Reason : TACHCARDIA Blood Pressure : / mmHG Vent. Rate : 116 BPM Atrial Rate : 116 BPM P-R Int : 118 ms QRS Dur : 084 ms QT Int : 326 ms P-R-T Axes : 033 020 033 degrees QTc Int : 453 ms Sinus tachycardia Low voltage QRS Borderline ECG No previous ECGs available Referred By: Generic ED Physician Electronically Signed By:Eliot Gunderson
--- NOTE | ~2023-10-23 | XR_ITS ---
EXAMINATION: XR CHEST CLINICAL INFORMATION: Sepsis. COMPARISON: None available. TECHNIQUE: Frontal view of the chest was obtained. FINDINGS: No significant abnormality is noted involving the heart, lungs, mediastinum, bony thorax or soft tissues. The tip of a right internal jugular chest port catheter projects over the junction of the superior vena cava and the right atrium. XR/XR chest 1V IMPRESSION: Unremarkable examination.
--- NOTE | 2023-10-23 08:57 | ED.GENADULT ---
HPI - General Adult General Chief complaint: Fever Stated complaint: Fever, vomiting - sent by oncology Time Seen by Provider: 10/23/23 08:35 Source: patient and family Mode of arrival: ambulatory Limitations: no limitations History of Present Illness HPI narrative: a 43-year-old female history of invasive ductal carcinoma of the breast stage II currently receiving chemotherapy came in for evaluation of fever, and a initial evaluation patient met criteria for sepsis and sepsis protocol was activated, patient had fever for 1 day with chills with nausea and vomiting with diarrhea. No headache, no photophobia, no neck stiffness, no CP, no SOB, no coughing, no abdominal pain, no frequency urination, no pain on urination, no blood in the urine , no exposure to a sick contacts, no recent travel. Related Data Home Medications Medication Instructions Recorded Confirmed loratadine 10 mg tablet (Claritin) 10 mg PO DAILY 02/12/22 08/05/23 docusate sodium 100 mg tablet 100 mg PO DAILY 09/30/23 09/30/23 (Stool Softener) vitamin B complex 09/30/23 09/30/23 Previous Rx's Medication Instructions Recorded ondansetron 8 mg disintegrating 8 mg PO Q8H PRN Nausea And 07/15/23 tablet Vomiting #30 tabs trazodone 50 mg tablet 50 mg PO BEDTIME #30 tabs 07/15/23 lidocaine HCl 4 % topical cream 1 appl topical USEASDIRECTD #60 07/25/23 (Lidocaine Plus) grams Allergies Allergy/AdvReac Type Severity Reaction Status Date / Time No Known Allergies Allergy Verified 10/23/23 08:14 Review of Systems Review of Systems: All other systems are reviewed and are negative Constitutional: Reports as per HPI and Reports no additional constitutional complaints Eyes: Reports as per HPI and Reports no additional eye complaints Reports system reviewed and no additional complaints, except as documented Cardiovascular: Reports as per HPI and Reports no additional cardiovascular complaints Respiratory: Reports as per HPI and Reports no additional respiratory complaints Gastrointestinal: Reports as per HPI and Reports no additional gastrointestinal complaints Genitourinary: Reports no additional female genitourinary complaints Musculoskeletal: Reports no additional musculoskeletal complaints Skin/Breast: Reports system reviewed and no additional complaints, except as docu Psychiatric: Reports no additional psychiatric complaints Endocrine: Reports no additional endocrine complaints Hematologic/Lymphatic: Reports no additional hematologic/lymphatic complaints Allergic/Immunologic: Reports no additional allergic/immunologic complaints Reports system reviewed and no additional complaints, except as documented and Reports Abnormal speech present [facility] Past Medical History Medical History Invasive ductal carcinoma of breast, stage 2 Abnormal Pap smear of cervix Gallstone of bile duct with obstruction Surgical History History of tonsillectomy History of loop electrical excision procedure (LEEP) Hx of cholecystectomy Family History Family History Sister Breast cancer, Onset Age: 47 Father HTN (hypertension) Mother HTN (hypertension) Social History Social History Household Members: None Housing: House Unable to assess alcohol history related to: Unknown Alcohol intake: former Patient Tobacco Use Status: Former Tobacco user Smoked in Last 30 Days: No Use of substances other than those prescribed or required for medical reasons: No Advance Directives: Yes Advance Directives Information Provided: No Advance Directives on File: No Patient : No service: No Current occupational status: employed 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 ,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 Sexual orientation: Straight/Heterosexual Gender identity: Female Physical Exam ED Vital Signs: Vital Signs - 24 hr 10/23/23 08:14 10/23/23 09:35 10/23/23 09:48 Temperature 102.8 F H 98.6 F Pulse Rate 120 H 113 H 117 H Respiratory Rate 20 17 24 H Blood Pressure 89/60 L 104/64 99/61 Pulse Oximetry 98 98 98 Oxygen Delivery Method Room Air Room Air 10/23/23 10:03 10/23/23 10:18 10/23/23 10:33 Temperature Pulse Rate 115 H 114 H 112 H Respiratory Rate 22 H 19 14 Blood Pressure 95/55 L 90/51 L 89/53 L Pulse Oximetry 98 99 99 Oxygen Delivery Method Room Air Room Air 10/23/23 10:36 10/23/23 10:48 10/23/23 10:48 Temperature 100.6 F H Pulse Rate 113 H 115 H 112 H Respiratory Rate 14 15 16 Blood Pressure 91/54 L 91/54 L 95/58 L Pulse Oximetry 99 98 98 Oxygen Delivery Method Room Air Room Air Room Air 10/23/23 11:03 10/23/23 11:25 10/23/23 11:47 Temperature 99.4 F 99.9 F Pulse Rate 114 H 113 H 105 H Respiratory Rate 18 25 H 19 Blood Pressure 94/52 L 85/44 L 86/42 L Pulse Oximetry 97 97 98 Oxygen Delivery Method Room Air Room Air Room Air 10/23/23 12:00 10/23/23 12:07 10/23/23 12:14 Temperature Pulse Rate 114 H 103 H 110 H Respiratory Rate 15 Blood Pressure 87/52 L 89/50 L 85/45 L Pulse Oximetry 97 Oxygen Delivery Method Room Air 10/23/23 12:17 10/23/23 12:18 10/23/23 12:24 Temperature Pulse Rate 108 H 106 H 102 H Respiratory Rate 19 17 Blood Pressure 88/47 L 88/47 L 100/62 Pulse Oximetry 97 98 Oxygen Delivery Method Room Air Room Air 10/23/23 12:27 Temperature Pulse Rate 104 H Respiratory Rate 19 Blood Pressure 113/70 Pulse Oximetry 98 Oxygen Delivery Method Room Air BMI result Body Mass Index 27.2 Vital signs have been reviewed and appear to be correct. Blood pressure elevated. Heart rate normal. Respiratory rate normal. Temperature normal. Oxygen saturation normal. Appearance: Alert. Oriented X3. No acute distress. Head: Normal external exam. Normocephalic. Atraumatic. No Agrawal signs noted. No raccoon eyes noted Eyes: PERRLA. EOMI. Conjunctiva and sclera normal. Eyelids normal. ENT: TM's Normal. Pharynx normal. Uvula midline. Moist mucous membranes. No trismus noted. No drooling noted. No muffled voice noted. Neck: Normal inspection. Neck supple. FROM. No adenopathy. Thyroid Normal. No meningeal signs. No neck mass noted. CVS: Normal heart rate and rhythm. Heart sound normal. No murmurs noted. Pulses normal throughout. Respiratory: No respiratory distress. Painless inspiration. Breath sounds normal. No wheezes/rales/rhonchi noted. Chest nontender. No accessory muscle usage noted or decreased air movement noted. Abdomen: Soft and nontender. Bowel sounds normal in all 4 quadrants. No distention noted. No organomegaly noted. No visible injury noted. Back: No CVA tenderness. Full range of motion noted. Skin: Skin warm and dry. Normal skin color. Normal skin turgor. No rashes/lesions/lacerations noted. Extremities: No lower extremity edema. Extremities exhibit normal range of motion. Extremities nontender. Neuro: Oriented X 3. Cranial nerve exam: II-XII are grossly intact No motor deficit. No sensory deficit. Reflexes normal. Course Reevaluation(s) Reevaluation #1: patient met criteria for septic shock with no clear source of infection patient received broad-spectrum dose of Zosyn, patient also received 2,435 CC of fluid bolus. Time: 11:00 Reevaluation #2: patient received broad-spectrum antibiotic and 30 cc/kg ( 2,435 CC ) patient is still hypotensive will start the patient on Levophed for ICU admission. Time: 12:13 Reevaluation #3: FOCUSED EXAM: Patient is AAO x3, patient overall feels better, On Levophed with improvement of blood pressure now is 113/70, improvement of generalized body ache after Toradol. will admit to ICU. lactic acidosis has improved after fluids. Time: 13:00 Medications Administered Generic Name Dose Route Start Last Admin Trade Name Freq PRN Reason Stop Dose Admin Norepinephrine Bitartrate 8 mg in 250 mls @ 0 mls/hr 10/23/23 12:00 10/23/23 12:18 Levophed IV 0.09 mcg/kg/min .Q0M VANE 13.7 mls/hr Titration Protocol Per Protocol Discontinued Medications Generic Name Dose Route Start Last Admin Trade Name Freq PRN Reason Stop Dose Admin Acetaminophen 650 mg 10/23/23 08:56 10/23/23 09:21 Acetaminophen 325 Mg Tablet PO 10/23/23 08:57 650 mg ONCE ONE Administration Sodium Chloride 2,435.79 mls @ 2,435.79 mls/hr 10/23/23 08:35 10/23/23 12:11 Ns 30 ml/kg infuse over 1 hr (2435.79 ml) 10/23/23 09:34 Infused IV Infusion .Q1H STA Piperacillin Sod/Tazobactam 50 mls @ 100 mls/hr 10/23/23 08:35 10/23/23 09:36 Sod 3.375 gm/ Sodium Chloride IV 10/23/23 09:04 100 mls/hr ONCE ONE Administration Ketorolac Tromethamine 30 mg 10/23/23 10:49 10/23/23 10:55 Ketorolac Tromethamine 30 Mg/Ml Vial IVPUSH 10/23/23 10:50 30 mg ONCE ONE Administration Ondansetron HCl 4 mg 10/23/23 08:36 10/23/23 09:21 Ondansetron Hcl 4 Mg/2 Ml Vial IVPUSH 10/23/23 08:37 4 mg ONCE ONE Administration Medical Decision Making Differential Diagnosis Differential Diagnoses: The differential diagnosis associated with the presentation includes ( Septic shock, pneumonia, UTI, cellulitis, electrolyte derangement, severe anemia.) Admission/Observation Consideration of admission/observation: Escalation of care including admission/observation considered Consult Healthcare Provider Management of the patient was discussed with: Rivet Tester (Dr. Lares) Lab Data MDM Lab Attestation statement: I reviewed the patient's lab results. 10/23/23 09:10 10/23/23 09:10 Labs: Lab Results 10/23/23 10/23/23 10/23/23 Range/Units 09:10 09:33 11:30 WBC 5.3 (4.8-10.8) X10*3/uL RBC 2.81 L (4.20-5.50) X10*6/uL Hgb 9.4 L (12.0-16.0) g/dl Hct 28.7 L (37.0-47.0) % MCV 102.1 H (80.0-98.0) fL MCH 33.5 H (27.0-33.0) pg MCHC 32.8 (31.0-35.0) g/dl RDW 17.4 H (11.0-16.0) % Plt Count 258 (160-400) X10*3/uL MPV 10.7 (9.4-12.3) fL Immature Gran % (Auto) 0.4 (0.0-0.4) % Neut % (Auto) 95.2 H (45-73) % Lymph % (Auto) 1.7 L (20-40) % [place] % (Auto) 2.5 (2-11) % Eos % (Auto) 0.0 (0-4) % Baso % (Auto) 0.2 (0-2) % Lymph # (Auto) 0.1 L (1.2-4.9) X10*3/uL [place] # (Auto) 0.1 (0.1-1.2) X10*3/uL Eos # (Auto) 0.0 (0.0-0.4) X10*3/uL Baso # (Auto) 0.0 (0.0-0.2) X10*3/uL Abs Immat Gran (auto) 0.02 (0.00-0.03) X10*3/uL Absolute Neuts (auto) 5.0 (2.0-8.3) x10*3/uL Absolute Nucleated RBC 0.000 (0.0-0.012) X10*3/uL Nucleated RBC % (auto) 0.0 (0.0-0.2) /100WBC Smear Tech's Comments VERIFIED Sodium 142 (135-145) mmol/L Potassium 3.7 (3.3-5.1) mmol/L Chloride 110 H (96-108) mmol/L Carbon Dioxide 21 L (22-29) mmol/L Anion Gap 15 (12-20) BUN 22 H (9-16) mg/dL Creatinine 0.77 (0.5-1.4) mg/dL Estim Creat Clear Calc 103.1 Estimated GFR > 60 Random Glucose 113 (60-115) mg/dL Lactic Acid 2.4 H* (0.5-2.0) mmol/L Lactic Acid F/U @ 2Hr 1.7 (0.5-2.0) mmol/L Calcium 8.6 (8.4-10.2) mg/dL Total Bilirubin 0.7 (0.0-1.0) mg/dL AST 55 H (5-31) U/L ALT 88 H (0-31) U/L Alkaline Phosphatase 66 (39-117) U/L Total Protein 6.7 (6.5-8.0) g/dL Albumin 4.0 (3.5-5.0) g/dL Urine Color Yellow Urine Appearance Clear Urine pH 5.0 (5.0-9.0) Ur Specific [place] 1.025 (1.005-1.025) Urine Protein Negative (Neg-Trace) mg/dL Urine Glucose (UA) Negative (Negative) mg/dL Urine Ketones Negative (Negative) mg/dL Urine Blood Negative (Negative) Urine Nitrite Negative (Negative) Ur Leukocyte Esterase Negative (Negative) Influenza Type A (PCR) NEGATIVE (Negative) Influenza Type B (PCR) NEGATIVE (Negative) RSV RNA Qual (PCR) NEGATIVE (Negative) SARS-CoV-2 RNA (RT-PCR) NEGATIVE (Negative) Independent Interpretation I performed an independent interpretation of an: Plain X-Ray ( Chest: Unremarkable chest x-ray) Radiology Impression Discussion of test interpretation with radiology: I have reviewed the radiologist's reading. Chronic Conditions Patient?s care impacted by: Other ( stage II breast cancer) Critical Care Time Critical Care Time Critical Care Time: Yes Total Critical Care Time: 60 Attestation: I spent 60 minutes providing critical care service to the patient, this including time spent at the bedside to evaluate the patient, reassess the patient, monitoring vital signs, review labs, and radiographic studies, counseling the patient/family, discussing the case with consultants, disposition the patient. Discharge Plan Discharge Clinical Impression: Fever of unknown origin, Septic shock Patient Disposition: Admitted As Inpatient
[2023-10-23 09:21] LABS: Basophils Percent Auto 0.2 % (0-2); Hematocrit 28.7 % (37.0-47.0); Hemoglobin 9.4 g/dl (12.0-16.0); Imm Gran Abs Auto 0.02 X10*3/uL (0.00-0.03); Imm Gran Pct Auto 0.4 % (0.0-0.4); Lymphocytes Absolute Auto 0.1 X10*3/uL (1.2-4.9); Lymphocytes Percent Auto 1.7 % (20-40); MANUAL DIFF FLAG SCAN; Mean Corpuscular HGB Conc 32.8 g/dl (31.0-35.0); Mean Corpuscular Hemoglobin 33.5 pg (27.0-33.0); Mean Corpuscular Volume 102.1 fL (80.0-98.0); Mean Platelet Volume 10.7 fL (9.4-12.3); Monocytes Absolute Auto 0.1 X10*3/uL (0.1-1.2); Monocytes Percent Auto 2.5 % (2-11); Neutrophils Percent Auto 95.2 % (45-73); Platelet Count 258 X10*3/uL (160-400); Red Blood Count 2.81 X10*6/uL (4.20-5.50); Red Cell Distribution Width 17.4 % (11.0-16.0); SCAN SMEAR FLAG 1; White Blood Count 5.3 X10*3/uL (4.8-10.8)
[2023-10-23] MEDS: ondansetron HCL 4 MG/2 ML VIAL IVPUSH (09:21)
[2023-10-23] MEDS: Acetaminophen 325 MG TABLET 650 MG PO (09:21)
[2023-10-23 09:34] LABS: Alanine Aminotransferase 88 U/L (0-31); Alkaline Phosphatase 66 U/L (39-117); Anion Gap 15 (12-20); Aspartate Amino Transferase 55 U/L (5-31); Bilirubin Total 0.7 mg/dL (0.0-1.0); Blood Urea Nitrogen 22 mg/dL (9-16); Calcium 8.6 mg/dL (8.4-10.2); Carbon Dioxide 21 mmol/L (22-29); Chloride 110 mmol/L (96-108); Creatinine Clr Calc Pharmacy 103.1; Estimated Glomerular Filt Rate > 60; Glucose Random 113 mg/dL (60-115); Potassium 3.7 mmol/L (3.3-5.1); Sodium 142 mmol/L (135-145); Total Protein 6.7 g/dL (6.5-8.0)
[2023-10-23 09:35] LABS: Lactic Acid 2.4 mmol/L (0.5-2.0)
[2023-10-23] MEDS: Piperacillin Sodium/Tazobactam 3.375 GM in 0.9 % Sodium Chloride 50 ML IV (09:36)
[2023-10-23 09:41] LABS: Appearance Urine Clear; Color Urine Yellow; Glucose Urine UA Negative (Negative); Leukocyte Esterase Urine Negative (Negative); Nitrite Urine Negative (Negative); Specific Gravity - Urine 1.025 (1.005-1.025); Urine Blood Negative (Negative); Urine Ketones Negative (Negative); Urine Protein Negative (Neg-Trace)
[2023-10-23 09:52] LABS: SLIDE REVIEW VERIFIED
[2023-10-23 10:08] LABS: Influenza A PCR NEGATIVE (Negative); Influenza B PCR NEGATIVE (Negative); Resp Syncy Virus RNA Qual PCR NEGATIVE (Negative); SARS COV2 PCR INHOUSE NEGATIVE (Negative)
[2023-10-23] MEDS: Ketorolac Tromethamine 30 MG/ML VIAL IVPUSH (10:55)
[2023-10-23 11:19] LABS: Reflex Lactate? Lactic Acid Added
[2023-10-23 11:46] LABS: ~Lactic Acid-LAB USE ONLY 1.7 mmol/L (0.5-2.0)
[2023-10-23] MEDS: Norepinephrine Bitartrate/D5W 8 MG/250 ML PLAST..BAG 7.61 MG IV (12:00)
[2023-10-23] MEDS: Heparin Sodium,Porcine 5,000 UNIT/ML VIAL 5000 UNIT SUBCUT ×2 (12:41→19:20)
[2023-10-23] MEDS: Lactated Ringers 1,000 ML 999 ML IV ×2 (12:44→14:17)
--- NOTE | 2023-10-23 13:05 | P.HPCC_ITS ---
History of Present Illness Date of Service: 10/23/23 Chief Complaint: Myalgias, fatigue, nausea 43-year-old lady with underlying breast cancer on Taxol last dose on 10/21/2023 presented complaining of approximately 9 hour history of nausea, vomiting, diarrhea. On ER evaluation hypotensive with poor response to initial IV fluid resuscitation, started on vasopressor support, and empiric broad-spectrum antibiotics and admitted to intensive care unit. Review of Systems 2 Constitutional: Constitutional: Denies daytime sleepiness, Denies excessive sweating, Reports fatigue, Denies fever(s), Denies lethargy, Reports malaise, Denies night sweats, Denies snoring and Denies weight loss Eyes: Eyes: Denies blurry vision and Denies itchy eyes ENT: Denies nasal congestion, Denies post nasal drip, Denies sinus pain, Denies sinus pressure and Denies other ( Thrush) Cardiovascular: Cardiovascular: Denies chest pain, Denies pedal edema, Denies dyspnea, Denies orthopnea and Denies paroxysmal nocturnal dyspnea Respiratory: Respiratory: Denies cough, Denies hemoptysis, Denies excessive phlegm production, Denies dyspnea, Denies snoring and Denies wheezing Gastrointestinal: Gastrointestinal: Denies abdominal pain, Denies heartburn, Reports diarrhea, Reports nausea and Reports vomiting Musculoskeletal: Musculoskeletal: Denies myalgias, Denies arthralgias and Denies joint swelling Integumentary/Breasts: Skin/Breast: Denies rash Neurologic: Denies memory loss and Denies seizure-like activity Psychiatric: Psychiatric: Denies abnormal sleep pattern, Denies anxiety and Denies memory loss Endocrine: Endocrine: Denies excessive sweating, Reports fatigue and Denies heat intolerance Hematologic/Lymphatic: Hematologic/Lymphatic: Denies easy bruising Allergic/Immunologic: Allergic/Immunologic: Denies itchy eyes, Denies seasonal rhinorrhea and Denies wheezing PMFSH Past Medical History Medical History Invasive ductal carcinoma of breast, stage 2 Abnormal Pap smear of cervix Gallstone of bile duct with obstruction Family History Family History Sister Breast cancer, Onset Age: 47 Father HTN (hypertension) Mother HTN (hypertension) Surgical History Surgical History History of tonsillectomy History of loop electrical excision procedure (LEEP) Hx of cholecystectomy Social History Social History Household Members: None Housing: House Unable to assess alcohol history related to: Unknown Alcohol intake: former Patient Tobacco Use Status: Former Tobacco user Smoked in Last 30 Days: No Use of substances other than those prescribed or required for medical reasons: No Advance Directives: Yes Advance Directives Information Provided: No Advance Directives on File: No Patient : No service: No Current occupational status: employed 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 ,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 Sexual orientation: Straight/Heterosexual Gender identity: Female Meds Allergies Allergy/AdvReac Type Severity Reaction Status Date / Time No Known Allergies Allergy Verified 10/23/23 08:14 Active Medications: Current Medications Heparin Sodium (Porcine) (Heparin Sodium,Porcine 5,000 Unit/Ml Vial) 5,000 unit SUBCUT Q8H VANE Last Admin: 10/23/23 12:41 Dose: 5,000 unit Norepinephrine Bitartrate (Levophed) 8 mg in 250 mls @ 0 mls/hr IV .Q0M VANE; Protocol Last Titration: 10/23/23 12:18 Dose: 0.09 mcg/kg/min, 13.7 mls/hr Lactated Ringer's (Lr) 1,000 mls @ 999 mls/hr IV .Q1H1M VANE Stop: 10/23/23 14:30 Last Admin: 10/23/23 12:44 Dose: 999 mls/hr Cefepime HCl 2 gm/ Sodium (Chloride) 50 mls @ 100 mls/hr IV Q8H VANE Ondansetron HCl (Ondansetron Hcl 4 Mg/2 Ml Vial) 4 mg IVPUSH Q4H PRN PRN Reason: Nausea Home Medications Medication Instructions Recorded Confirmed Last Taken Type loratadine 10 mg tablet (Claritin) 10 mg PO DAILY 02/12/22 08/05/23 Unknown History docusate sodium 100 mg tablet 100 mg PO DAILY 09/30/23 09/30/23 Unknown History (Stool Softener) vitamin B complex 09/30/23 09/30/23 Unknown History norgestimate 0.25 mg-ethinyl tab PO 10/23/23 Unknown History estradiol 35 mcg tablet (Kylie) Physical Exam 2 Vital Signs: Vital Signs: Last Vital Signs Temp 98.5 F 10/23/23 12:58 Pulse 95 10/23/23 12:58 Resp 26 H 10/23/23 12:58 BP 112/65 10/23/23 12:58 Pulse Ox 99 10/23/23 12:58 O2 Del Method Room Air 10/23/23 12:58 BMI result Body Mass Index 27.2 Const: General: no acute distress and alert Nutritional Appearance: not obese Orientation/consciousness: Other orientation findings ( oriented) HEENT: Head: Yes atraumatic Eyes: General: appearance normal, both eyes and all related structures S clerae: sclerae normal EOM: EOMs intact bilaterally Neck: Neck: Yes supple Lymphatic: no lymphadenopathy noted Resp: Effort & Inspection: normal respiratory effort and no use of accessory muscles Auscultation: clear to auscultation bilaterally Cardio: Rate: regular rate Rhythm: regular rhythm Heart sounds: no gallops, no murmurs and no rubs Skin: General skin exam: other ( warm) Extrem: General: No clubbing, No cyanosis and No edema Results Labs 10/23/23 09:10 10/23/23 09:10 Labs: Laboratory Results - last 24 hr 10/23/23 10/23/23 10/23/23 09:10 09:33 11:30 MCV 102.1 H MCH 33.5 H MCHC 32.8 RDW 17.4 H Plt Count 258 MPV 10.7 Immature Gran % (Auto) 0.4 Neut % (Auto) 95.2 H Lymph % (Auto) 1.7 L [place] % (Auto) 2.5 Eos % (Auto) 0.0 Baso % (Auto) 0.2 Lymph # (Auto) 0.1 L [place] # (Auto) 0.1 Eos # (Auto) 0.0 Baso # (Auto) 0.0 Abs Immat Gran (auto) 0.02 Absolute Neuts (auto) 5.0 Absolute Nucleated RBC 0.000 Nucleated RBC % (auto) 0.0 Smear Tech's Comments VERIFIED Anion Gap 15 Estim Creat Clear Calc 103.1 Estimated GFR > 60 Random Glucose 113 Lactic Acid 2.4 H* Lactic Acid F/U @ 2Hr 1.7 Calcium 8.6 Total Bilirubin 0.7 AST 55 H ALT 88 H Alkaline Phosphatase 66 Total Protein 6.7 Albumin 4.0 Urine Color Yellow Urine Appearance Clear Urine pH 5.0 Ur Specific [place] 1.025 Urine Protein Negative Urine Glucose (UA) Negative Urine Ketones Negative Urine Blood Negative Urine Nitrite Negative Ur Leukocyte Esterase Negative Influenza Type A (PCR) NEGATIVE Influenza Type B (PCR) NEGATIVE RSV RNA Qual (PCR) NEGATIVE SARS-CoV-2 RNA (RT-PCR) NEGATIVE Imaging Radiologist's Impressions: Impressions Chest X-Ray 10/23/23 09:44 IMPRESSION: Unremarkable examination. Assessment and Plan (1) Fever of unknown origin: Status: Acute (2) Septic shock: Status: Acute (3) Invasive ductal carcinoma of breast, stage 2: Qualifiers: Laterality: left Qualified Code(s): C50.912 - Malignant neoplasm of unspecified site of left female breast Status: Acute Plan Assessment: 43-year-old lady with underlying breast cancer on Taxol been admitted with distributive shock Plan: Neuro: No acute issues. Cardiac: distributive shock, may have a component of septic shock, but likely secondary to intravascular volume depletion from nausea/vomiting /day as a secondary effect from Taxol therapy of underlying breast cancer. Continue to titrate off pressor support as tolerated. Pulmonary: No acute issues. Renal: No acute issues. Endo: No acute issues. GI: Nausea, vomiting, diarrhea, likely secondary effect from Taxol. ID: Blood cultures are pending. Empirically covered with broad-spectrum antibiotics. Heme/Onc: Breast cancer on Taxol. Psych: No acute issues. Miscellaneous: No acute issues. Prophylaxis: Heparin Diet: regular Critical care time spent: 60 minutes
--- NOTE | 2023-10-23 13:42 | PHA.MEDREC ---
Addendum entered by Gabriella Armstrong, [facility] 10/23/23 15:15: Called Sy, pt last picked up zofran and trazodone together on 10/10/23, added both to home meds. Original Note: Pharmacy Consult ? Medication Reconciliation Pharmacy has completed the medication reconciliation, pt stated she only takes OTC vitamins but mentioned ondansetron PRN. Stated that she occasionally gets medications prescribed depending on chemo cycles, but nothing at the current moment to take daily.
[2023-10-23] MEDS: Folic Acid 1 MG in 0.9 % Sodium Chloride 50 ML 100.4 MG IV (16:32)
[2023-10-23] MEDS: cefEPime HCl 2 GM in 0.9 % Sodium Chloride 50 ML IV ×2 (16:32→19:19)
[2023-10-23] MEDS: fentaNYL citrate/PF 100 MCG/2 ML VIAL 25 MCG IVPUSH (16:50)
[2023-10-23] MEDS: Morphine Sulfate 2 MG/ML CARTRIDGE 1 MG IVPUSH (19:16)
[2023-10-23] MEDS: Morphine Sulfate 2 MG/ML CARTRIDGE IVPUSH (22:19)
[2023-10-24] VITALS (15 sets, daily range): BP systolic 99–108; BP diastolic 58–70; PULSE 60–106; RESP 10–27; TEMP 36–37.6; O2SAT 95–99; BMI 27.3
[2023-10-24] MEDS: Morphine Sulfate 2 MG/ML CARTRIDGE IVPUSH ×4 (03:27→22:39)
[2023-10-24 04:50] LABS: VBG Base Excess -4.4 mmol/L; VBG HCO3 18 mmol/L (22-26); VBG pCO2 25 mmHg; VBG pH 7.46 (7.32-7.43); VBG pO2 67 mmHg
[2023-10-24 04:54] LABS: Basophils Percent Auto 0.4 % (0-2); Hematocrit 24.5 % (37.0-47.0); Hemoglobin 8.1 g/dl (12.0-16.0); Imm Gran Abs Auto 0.01 X10*3/uL (0.00-0.03); Imm Gran Pct Auto 0.4 % (0.0-0.4); Lymphocytes Absolute Auto 0.3 X10*3/uL (1.2-4.9); Lymphocytes Percent Auto 13.6 % (20-40); MANUAL DIFF FLAG SCAN; Mean Corpuscular HGB Conc 33.1 g/dl (31.0-35.0); Mean Corpuscular Hemoglobin 33.3 pg (27.0-33.0); Mean Corpuscular Volume 100.8 fL (80.0-98.0); Mean Platelet Volume 10.9 fL (9.4-12.3); Monocytes Absolute Auto 0.1 X10*3/uL (0.1-1.2); Monocytes Percent Auto 2.5 % (2-11); Neutrophils Percent Auto 83.1 % (45-73); Platelet Count 212 X10*3/uL (160-400); Red Blood Count 2.43 X10*6/uL (4.20-5.50); Red Cell Distribution Width 17.8 % (11.0-16.0); SCAN SMEAR FLAG 1
[2023-10-24 04:56] LABS: Venous Blood Gas Refer to POC result
[2023-10-24 04:57] LABS: White Blood Count 2.4 X10*3/uL (4.8-10.8)
[2023-10-24 05:22] LABS: Alanine Aminotransferase 72 U/L (0-31); Albumin Level 3.3 g/dL (3.5-5.0); Alkaline Phosphatase 51 U/L (39-117); Anion Gap 11 (12-20); Aspartate Amino Transferase 52 U/L (5-31); Bilirubin Total 0.6 mg/dL (0.0-1.0); Blood Urea Nitrogen 14 mg/dL (9-16); Calcium 7.5 mg/dL (8.4-10.2); Carbon Dioxide 17 mmol/L (22-29); Chloride 113 mmol/L (96-108); Creatinine Clr Calc Pharmacy 115.2; Estimated Glomerular Filt Rate > 60; Glucose Random 97 mg/dL (60-115); Magnesium 1.7 mg/dL (1.6-2.6); Phosphorus 2.6 mg/dL (2.7-4.5); Potassium 2.7 mmol/L (3.3-5.1); Sodium 138 mmol/L (135-145); Total Protein 5.6 g/dL (6.5-8.0)
[2023-10-24 05:28] LABS: SLIDE REVIEW VERIFIED
[2023-10-24] MEDS: cefEPime HCl 2 GM in 0.9 % Sodium Chloride 50 ML IV ×3 (05:28→22:17)
[2023-10-24] MEDS: Heparin Sodium,Porcine 5,000 UNIT/ML VIAL 5000 UNIT SUBCUT ×3 (05:30→22:17)
[2023-10-24] MEDS: Potassium Chloride/H20 40 MEQ/100 ML PIGGYBACK 50 MEQ IV (05:39)
[2023-10-24] MEDS: Calcium Gluconate/NaCl,Iso-Osm 2 GM/100 ML PLAST..BAG IV (05:39)
[2023-10-24] MEDS: Albumin Human 25 % 100 ML IV ×3 (08:22→21:06)
[2023-10-24] MEDS: Folic Acid 1 MG in 0.9 % Sodium Chloride 50 ML 100.4 MG IV (08:22)
[2023-10-24] MEDS: Potassium Phosphate/NS 15 MMOL/250 ML PLAST..BAG 62.5 MMOL IV (09:18)
[2023-10-24] MEDS: ondansetron HCL 4 MG/2 ML VIAL IVPUSH ×2 (09:23→13:34)
[2023-10-24] MEDS: Potassium Chloride Packet 20 MEQ PACKET 60 MEQ PO (09:26)
--- NOTE | 2023-10-24 10:04 | MHC.CM.PN ---
Met w/pt briefly prior to transfer to Medical floor: pt resides w/family and has no services or DME: currently undergoing tx for breast cancer: No barriers identified: pt will call for transportation home : PCP Deidre Stauffer, HCP copy requested.
--- NOTE | 2023-10-24 10:45 | PC.NURSE ---
Pt. arrived to unit around 1000. Pt. is alert and oriented x3. Weak. On RA. Tele applied. Pt. oriented to staff, room, and call [place].
--- NOTE | 2023-10-24 11:09 | PM.CCPN ---
Subjective Subjective Date of Service: 10/24/23 Interval History: 43-year-old lady with underlying breast cancer on Taxol last dose on 10/21/2023 presented complaining of approximately 9 hour history of nausea, vomiting, diarrhea. On ER evaluation hypotensive with poor response to initial IV fluid resuscitation, started on vasopressor support, and empiric broad-spectrum antibiotics and admitted to intensive care unit. After rehydration patient titrated off pressor support. No events overnight. Critical Care Time (minutes): 0 Physical Exam Vital Signs: Vital Signs: Last Vital Signs Temp 98.0 F 10/24/23 10:59 Pulse 92 10/24/23 10:59 Resp 18 10/24/23 10:59 BP 104/69 10/24/23 10:59 Pulse Ox 98 10/24/23 10:59 O2 Del Method Room Air 10/24/23 10:59 BMI result Body Mass Index 27.3 Const: General: no acute distress, alert and awake Eyes: Sclerae: sclerae normal EOM: EOMs intact bilaterally Neck: Neck: Yes no lymphadenopathy, Yes trachea midline and Yes supple Resp: Effort & Inspection: normal respiratory effort and no respiratory distress Auscultation: clear to auscultation bilaterally Cardio: Rate: regular rate Rhythm: regular rhythm Heart sounds: no gallops, no murmurs and no rubs GI: Palpation (GI): Soft to palpation and Other GI palpation findings present ( Nontender) Auscultation: normal bowel sounds Extrem: General: Yes no pedal edema, No clubbing and No cyanosis Objective Data Labs 10/24/23 04:34 10/24/23 04:34 Labs: Laboratory Results - last 24 hr 10/23/23 10/24/23 10/24/23 11:30 04:34 04:43 WBC 2.4 L RBC 2.43 L Hgb 8.1 L Hct 24.5 L MCV 100.8 H MCH 33.3 H MCHC 33.1 RDW 17.8 H Plt Count 212 MPV 10.9 Immature Gran % (Auto) 0.4 Neut % (Auto) 83.1 H Lymph % (Auto) 13.6 L [place] % (Auto) 2.5 Eos % (Auto) 0.0 Baso % (Auto) 0.4 Lymph # (Auto) 0.3 L [place] # (Auto) 0.1 Eos # (Auto) 0.0 Baso # (Auto) 0.0 Abs Immat Gran (auto) 0.01 Absolute Neuts (auto) 2.0 Absolute Nucleated RBC 0.000 Nucleated RBC % (auto) 0.0 Smear Tech's Comments VERIFIED VBG pH 7.46 H VBG pCO2 25 VBG pO2 67 VBG HCO3 18 L VBG O2 Saturation 95.0 VBG Base Excess -4.4 Sodium 138 Potassium 2.7 L* D Chloride 113 H Carbon Dioxide 17 L Anion Gap 11 L BUN 14 Creatinine 0.69 Estim Creat Clear Calc 115.2 Estimated GFR > 60 Random Glucose 97 Lactic Acid F/U @ 2Hr 1.7 Calcium 7.5 L D Phosphorus 2.6 L Magnesium 1.7 Total Bilirubin 0.6 AST 52 H ALT 72 H Alkaline Phosphatase 51 Total Protein 5.6 L Albumin 3.3 L Progress Note: A&P Assessment and plan (1) Fever of unknown origin: Status: Acute (2) Invasive ductal carcinoma of breast, stage 2: Status: Acute Plan Assessment: 43-year-old lady with underlying breast cancer on Taxol been admitted with distributive shock Plan: Neuro: No acute issues. Cardiac: distributive shock, resolved, may have a component of septic shock, but likely secondary to intravascular volume depletion from nausea/vomiting /day as a secondary effect from Taxol therapy of underlying breast cancer. Pulmonary: No acute issues. Renal: No acute issues. Endo: No acute issues. GI: Nausea, vomiting, diarrhea, likely secondary effect from Taxol. ID: Blood cultures are pending. Empirically covered with broad-spectrum antibiotics. Heme/Onc: Breast cancer on Taxol. Psych: No acute issues. Miscellaneous: No acute issues. Prophylaxis: Heparin Diet: regular Quality Stroke Does the patient have a stroke diagnosis?: No VTE Prior VTE?: No VTE Risk Level:: Medical - moderate - high VTE Device Contraindication: Treatment Not Indicated VTE Drug Contraindication: N/A - Med Ordered
[2023-10-25] VITALS: BP 102/72; PULSE 83; RESP 20; TEMP 36.1; O2SAT 97
[2023-10-25 03:12] VITALS: BP 97/59; PULSE 80; RESP 20; TEMP 36.2; O2SAT 97
[2023-10-25] MEDS: Albumin Human 25 % 100 ML IV (03:47)
[2023-10-25] MEDS: cefEPime HCl 2 GM in 0.9 % Sodium Chloride 50 ML IV ×3 (05:00→22:05)
[2023-10-25 05:26] VITALS: BMI 25.8
[2023-10-25 06:32] LABS: MANUAL DIFF FLAG NO
[2023-10-25] MEDS: Heparin Sodium,Porcine 5,000 UNIT/ML VIAL 5000 UNIT SUBCUT ×3 (06:41→21:52)
[2023-10-25 06:55] LABS: Basophils Percent Auto 0.4 % (0-2); Eosinophils Percent Auto 1.1 % (0-4); Hematocrit 24.8 % (37.0-47.0); Hemoglobin 8.2 g/dl (12.0-16.0); Imm Gran Abs Auto 0.01 X10*3/uL (0.00-0.03); Imm Gran Pct Auto 0.4 % (0.0-0.4); Lymphocytes Absolute Auto 0.5 X10*3/uL (1.2-4.9); Lymphocytes Percent Auto 17.8 % (20-40); Mean Corpuscular HGB Conc 33.1 g/dl (31.0-35.0); Mean Corpuscular Hemoglobin 32.9 pg (27.0-33.0); Mean Corpuscular Volume 99.6 fL (80.0-98.0); Mean Platelet Volume 11.1 fL (9.4-12.3); Monocytes Absolute Auto 0.1 X10*3/uL (0.1-1.2); Monocytes Percent Auto 4.1 % (2-11); Neutrophils Absolute Auto 2.1 x10*3/uL (2.0-8.3); Neutrophils Percent Auto 76.2 % (45-73); Platelet Count 201 X10*3/uL (160-400); Red Blood Count 2.49 X10*6/uL (4.20-5.50); Red Cell Distribution Width 17.2 % (11.0-16.0); White Blood Count 2.7 X10*3/uL (4.8-10.8)
[2023-10-25 07:01] LABS: Albumin Level 4.1 g/dL (3.5-5.0); Anion Gap 11 (12-20); Blood Urea Nitrogen 7 mg/dL (9-16); Calcium 8.6 mg/dL (8.4-10.2); Carbon Dioxide 19 mmol/L (22-29); Chloride 114 mmol/L (96-108); Creatinine Clr Calc Pharmacy 119.3; Estimated Glomerular Filt Rate > 60; Glucose Random 93 mg/dL (60-115); Magnesium 1.9 mg/dL (1.6-2.6); Phosphorus 1.9 mg/dL (2.7-4.5); Potassium 3.7 mmol/L (3.3-5.1); Sodium 140 mmol/L (135-145)
[2023-10-25 07:39] VITALS: BP 106/69; PULSE 82; RESP 18; TEMP 37.1; O2SAT 98
--- NOTE | 2023-10-25 09:01 | HO.PM.IMPN ---
Subjective Subjective Date of Service: 10/25/23 Interval History: feeling better, still with diarrhea Physical Exam Vital Signs: Vital Signs: Last Vital Signs Temp 98.8 F 10/25/23 07:39 Pulse 82 10/25/23 07:39 Resp 18 10/25/23 07:39 BP 106/69 10/25/23 07:39 Pulse Ox 98 10/25/23 07:39 O2 Del Method Room Air 10/25/23 07:39 BMI result Body Mass Index 25.8 General: AO X 3, no acute distress Resp: CTA bilateral, no accessory muscles used CVS: S1,S2,RRR GI: soft, non tender, non distended Neuro: motor grossly intact, alert Psych: appropriate affect, appropriate insight Objective Data Active Medications Heparin Sodium (Porcine) (Heparin Sodium,Porcine 5,000 Unit/Ml Vial) 5,000 unit SUBCUT Q8H [facility] Last Admin: 10/25/23 06:41 Dose: 5,000 unit Documented By: DINESH Cefepime HCl 2 gm/ Sodium (Chloride) 50 mls @ 100 mls/hr IV Q8H [facility] Last Infusion: 10/25/23 05:30 Dose: Infused Documented By: DINESH Folic Acid 1 mg/ Sodium (Chloride) 50.2 mls @ 100.4 mls/hr IV DAILY [facility] Last Infusion: 10/24/23 10:34 Dose: Infused Documented By: PITA Lactated Ringer's (Lr) 1,000 mls @ 80 mls/hr IVCONT .[id number] [facility] Loperamide HCl (Loperamide Hcl 2 Mg Capsule) 2 mg PO Q4H PRN PRN Reason: Diarrhea Morphine Sulfate (Morphine Sulfate 2 Mg/Ml Cartridge) 2 mg IVPUSH Q4H PRN; Protocol PRN Reason: Pain, Severe (Pain Scale 7-10) Last Admin: 10/24/23 22:39 Dose: 2 mg Documented By: DINESH Ondansetron HCl (Ondansetron Hcl 4 Mg/2 Ml Vial) 4 mg IVPUSH Q4H PRN PRN Reason: Nausea Last Admin: 10/24/23 13:34 Dose: 4 mg Documented By: PITA Labs 10/25/23 06:08 10/25/23 06:08 Labs: Laboratory Results - last 24 hr 10/25/23 06:08 MCV 99.6 H MCH 32.9 MCHC 33.1 RDW 17.2 H Plt Count 201 MPV 11.1 Immature Gran % (Auto) 0.4 Neut % (Auto) 76.2 H Lymph % (Auto) 17.8 L [place] % (Auto) 4.1 Eos % (Auto) 1.1 Baso % (Auto) 0.4 Lymph # (Auto) 0.5 L [place] # (Auto) 0.1 Eos # (Auto) 0.0 Baso # (Auto) 0.0 Abs Immat Gran (auto) 0.01 Absolute Neuts (auto) 2.1 Absolute Nucleated RBC 0.000 Nucleated RBC % (auto) 0.0 Anion Gap 11 L Estim Creat Clear Calc 119.3 Estimated GFR > 60 Random Glucose 93 Calcium 8.6 D Phosphorus 1.9 L Magnesium 1.9 Albumin 4.1 Microbiology Microbiology Results: Microbiology 10/23/23 09:11 Blood Culture - Preliminary Blood - Venous No growth after 24 hours. 10/23/23 09:11 Blood Culture - Preliminary Blood - Venous No growth after 24 hours. Assessment and Plan (1) Invasive ductal carcinoma of breast, stage 2: Status: Acute Plan 43F PMH breast ca on taxol presented with n/v/d, hypotesive, admitted to icu for pressors, weaned off after aggressive hydration, also had fever on admission. hypotension sepsis vs dehydration from taxol induced nausea and voimiting continue empiric cefepime - cultures negative so far ivf dvt prophylaxis - hep sq full code reason for continued hospitalization:still with diarrhea, low bp Quality Stroke Does the patient have a stroke diagnosis?: No VTE Prior VTE?: No VTE Risk Level:: Medical - moderate - high VTE Device Contraindication: Treatment Not Indicated VTE Drug Contraindication: N/A - Med Ordered
[2023-10-25] MEDS: Folic Acid 1 MG in 0.9 % Sodium Chloride 50 ML 100.4 MG IV (09:08)
[2023-10-25] MEDS: Acetaminophen 325 MG TABLET 650 MG PO ×2 (09:39→22:12)
[2023-10-25] MEDS: Lactated Ringers 1,000 ML 80 ML IVCONT ×2 (09:43→21:55)
[2023-10-25] MEDS: Loperamide HCl 2 MG CAPSULE PO (10:34)
[2023-10-25 11:46] VITALS: BP 100/67; PULSE 81; RESP 18; TEMP 36.6; O2SAT 98
[2023-10-25 16:00] VITALS: BP 110/71; PULSE 89; RESP 18; TEMP 36.3; O2SAT 100
[2023-10-25 20:00] VITALS: BP 122/74; PULSE 85; RESP 18; TEMP 36.2; O2SAT 100
[2023-10-26] VITALS (7 sets, daily range): BP systolic 90–111; BP diastolic 59–78; PULSE 74–80; RESP 18–20; TEMP 36.2–36.7; O2SAT 98–100; BMI 26.6
[2023-10-26] MEDS: cefEPime HCl 2 GM in 0.9 % Sodium Chloride 50 ML IV ×3 (04:51→21:39)
[2023-10-26] MEDS: Heparin Sodium,Porcine 5,000 UNIT/ML VIAL 5000 UNIT SUBCUT ×3 (04:51→21:40)
[2023-10-26 05:58] LABS: Hematocrit 24.8 % (37.0-47.0); Hemoglobin 8.4 g/dl (12.0-16.0); Mean Corpuscular HGB Conc 33.9 g/dl (31.0-35.0); Mean Corpuscular Hemoglobin 33.6 pg (27.0-33.0); Mean Corpuscular Volume 99.2 fL (80.0-98.0); Mean Platelet Volume 10.6 fL (9.4-12.3); Platelet Count 211 X10*3/uL (160-400); Red Cell Distribution Width 17.2 % (11.0-16.0)
[2023-10-26 06:15] LABS: Anion Gap 8 (12-20); Blood Urea Nitrogen 7 mg/dL (9-16); Calcium 8.6 mg/dL (8.4-10.2); Carbon Dioxide 21 mmol/L (22-29); Chloride 114 mmol/L (96-108); Creatinine Clr Calc Pharmacy 130.9; Estimated Glomerular Filt Rate > 60; Glucose Fasting 97 mg/dL (60-99); Potassium 3.3 mmol/L (3.3-5.1); Sodium 140 mmol/L (135-145)
[2023-10-26] MEDS: ondansetron HCL 4 MG/2 ML VIAL IVPUSH (06:15)
[2023-10-26 06:16] LABS: White Blood Count 2.3 X10*3/uL (4.8-10.8)
[2023-10-26] MEDS: Potassium Chloride ER 20 MEQ TAB.ER.PRT 40 MEQ PO (07:43)
[2023-10-26] MEDS: Folic Acid 1 MG in 0.9 % Sodium Chloride 50 ML 100.4 MG IV (07:44)
--- NOTE | 2023-10-26 09:05 | P.PNIM_ITS ---
Subjective Subjective Date of Service: 10/26/23 Interval History: feeling better, no diarrhea today Physical Exam 2 Vital Signs: Vital Signs: Last Vital Signs Temp 97.5 F 10/26/23 08:00 Pulse 78 10/26/23 08:00 Resp 19 10/26/23 08:00 BP 102/78 10/26/23 08:00 Pulse Ox 99 10/26/23 08:00 O2 Del Method Room Air 10/26/23 08:00 BMI result Body Mass Index 26.6 General: AO X 3, no acute distress Resp: CTA bilateral, no accessory muscles used CVS: S1,S2,RRR GI: soft, non tender, non distended Neuro: motor grossly intact, alert Psych: appropriate affect, appropriate insight Objective Data Active Medications Acetaminophen (Acetaminophen 325 Mg Tablet) 650 mg PO Q4H PRN PRN Reason: mild to moderate pain Last Admin: 10/25/23 22:12 Dose: 650 mg Documented By: JUAN LUIS Heparin Sodium (Porcine) (Heparin Sodium,Porcine 5,000 Unit/Ml Vial) 5,000 unit SUBCUT Q8H [facility] Last Admin: 10/26/23 04:51 Dose: 5,000 unit Documented By: JUAN LUIS Cefepime HCl 2 gm/ Sodium (Chloride) 50 mls @ 100 mls/hr IV Q8H [facility] Last Infusion: 10/26/23 05:30 Dose: Infused Documented By: JUAN LUIS Folic Acid 1 mg/ Sodium (Chloride) 50.2 mls @ 100.4 mls/hr IV DAILY [facility] Last Infusion: 10/26/23 08:15 Dose: Infused Documented By: NYA Lactated Ringer's (Lr) 1,000 mls @ 80 mls/hr IVCONT .[id number] [facility] Last Admin: 10/25/23 21:55 Dose: 80 mls/hr Documented By: JUAN LUIS Loperamide HCl (Loperamide Hcl 2 Mg Capsule) 2 mg PO Q4H PRN PRN Reason: Diarrhea Last Admin: 10/25/23 10:34 Dose: 2 mg Documented By: NYA Morphine Sulfate (Morphine Sulfate 2 Mg/Ml Cartridge) 2 mg IVPUSH Q4H PRN; Protocol PRN Reason: Pain, Severe (Pain Scale 7-10) Last Admin: 10/24/23 22:39 Dose: 2 mg Documented By: DINESH Ondansetron HCl (Ondansetron Hcl 4 Mg/2 Ml Vial) 4 mg IVPUSH Q4H PRN PRN Reason: Nausea Last Admin: 10/26/23 06:15 Dose: 4 mg Documented By: JUAN LUIS Labs 10/26/23 05:38 10/26/23 05:38 Labs: Laboratory Results - last 24 hr 10/26/23 05:38 MCV 99.2 H MCH 33.6 H MCHC 33.9 RDW 17.2 H Plt Count 211 MPV 10.6 Absolute Nucleated RBC 0.000 Nucleated RBC % (auto) 0.0 Anion Gap 8 L Estim Creat Clear Calc 130.9 Estimated GFR > 60 Fasting Glucose 97 Calcium 8.6 Magnesium 2.0 Microbiology Microbiology Results: Microbiology 10/23/23 09:11 Blood Culture - Preliminary Blood - Venous No growth after 48 hours. 10/23/23 09:11 Blood Culture - Preliminary Blood - Venous No growth after 48 hours. Assessment and Plan (1) Invasive ductal carcinoma of breast, stage 2: Status: Acute Plan 43F PMH breast ca on taxol presented with n/v/d, hypotesive, admitted to icu for pressors, weaned off after aggressive hydration, also had fever on admission. hypotension sepsis vs dehydration from taxol induced nausea and voimiting continue empiric cefepime - cultures negative so far ivf - still borederline hypotensive dvt prophylaxis - hep sq full code reason for continued hospitalization:still hypotensive Quality Stroke Does the patient have a stroke diagnosis?: No VTE Prior VTE?: No VTE Risk Level:: Medical - moderate - high VTE Device Contraindication: Treatment Not Indicated VTE Drug Contraindication: N/A - Med Ordered
[2023-10-26] MEDS: Loperamide HCl 2 MG CAPSULE PO (10:31)
[2023-10-26] MEDS: Lactated Ringers 1,000 ML 80 ML IVCONT ×2 (10:32→23:29)
[2023-10-26] MEDS: Acetaminophen 325 MG TABLET 650 MG PO (23:01)
[2023-10-27 03:17] VITALS: BP 109/71; PULSE 75; RESP 19; TEMP 36.7; O2SAT 98
[2023-10-27] MEDS: Heparin Sodium,Porcine 5,000 UNIT/ML VIAL 5000 UNIT SUBCUT (05:29)
[2023-10-27] MEDS: cefEPime HCl 2 GM in 0.9 % Sodium Chloride 50 ML IV (05:29)
[2023-10-27 06:00] VITALS: BMI 26.4
[2023-10-27 07:11] VITALS: BP 109/67; PULSE 72; RESP 20; TEMP 37.2; O2SAT 97
[2023-10-27 07:32] LABS: Hematocrit 25.5 % (37.0-47.0); Hemoglobin 8.6 g/dl (12.0-16.0); Mean Corpuscular HGB Conc 33.7 g/dl (31.0-35.0); Mean Corpuscular Hemoglobin 33.6 pg (27.0-33.0); Mean Corpuscular Volume 99.6 fL (80.0-98.0); Mean Platelet Volume 10.7 fL (9.4-12.3); Platelet Count 242 X10*3/uL (160-400); Red Blood Count 2.56 X10*6/uL (4.20-5.50); Red Cell Distribution Width 17.2 % (11.0-16.0)
[2023-10-27 07:34] LABS: White Blood Count 2.4 X10*3/uL (4.8-10.8)
[2023-10-27 07:46] LABS: Anion Gap 10 (12-20); Blood Urea Nitrogen 5 mg/dL (9-16); Calcium 9.2 mg/dL (8.4-10.2); Carbon Dioxide 24 mmol/L (22-29); Chloride 114 mmol/L (96-108); Creatinine Clr Calc Pharmacy 120.5; Estimated Glomerular Filt Rate > 60; Glucose Fasting 94 mg/dL (60-99); Potassium 3.9 mmol/L (3.3-5.1); Sodium 144 mmol/L (135-145)
[2023-10-27] MEDS: Folic Acid 1 MG in 0.9 % Sodium Chloride 50 ML 100.4 MG IV (08:25)
--- NOTE | 2023-10-27 09:09 | PM.DS ---
DS: Providers Provider Date of Service: 10/27/23 Date of admission: 10/23/23 12:24 Primary care physician: Milvia Stauffer MD DS: Diagnosis Discharge Diagnosis (1) Invasive ductal carcinoma of breast, stage 2: Status: Acute DS: Summary Hospital Course Hospital Course: from initial hpi: 43-year-old lady with underlying breast cancer on Taxol last dose on 10/21/2023 presented complaining of approximately 9 hour history of nausea, vomiting, diarrhea. On ER evaluation hypotensive with poor response to initial IV fluid resuscitation, started on vasopressor support, and empiric broad-spectrum antibiotics and admitted to intensive care unit. hospital course: Patient was admitted for hypotension secondary to severe sepsis versus dehydration from Taxol induced nausea and vomiting. She was put on empiric cefepime. Her cultures continue to be negative. She received aggressive hydration and blood pressure improved. Diarrhea slowed down. Patient will be discharged home on 3 more days of empiric cefuroxime. She is encouraged to drink plenty of fluids. Can use Imodium as needed for diarrhea. Time Attestation Discharge Coordination Time (in mins): 35 Quality: Safe Use of Opioids Does Pt have an Active Cancer Diagnosis on the Problem List?: Yes Opioid Measure Date for [facility] Report: 09/27/23 Opioid Measure Time for [facility] Report: 09:10 Quality: Stroke Does the patient have a stroke diagnosis?: No Physical Exam Vital Signs: Vital Signs: Last Vital Signs Temp 98.9 F 10/27/23 07:11 Pulse 72 10/27/23 07:11 Resp 20 10/27/23 07:11 BP 109/67 10/27/23 07:11 Pulse Ox 97 10/27/23 07:11 O2 Del Method Room Air 10/27/23 07:11 BMI result Body Mass Index 26.4 General: AO X 3, no acute distress Resp: CTA bilateral, no accessory muscles used CVS: S1,S2,RRR GI: soft, non tender, non distended Neuro: motor grossly intact, alert Psych: appropriate affect, appropriate insight DS: Data Data Completed and Pending Labs on day of discharge: Laboratory Results - last 24 hr 10/27/23 07:06 WBC 2.4 L RBC 2.56 L Hgb 8.6 L Hct 25.5 L MCV 99.6 H MCH 33.6 H MCHC 33.7 RDW 17.2 H Plt Count 242 MPV 10.7 Absolute Nucleated RBC 0.000 Nucleated RBC % (auto) 0.0 Sodium 144 Potassium 3.9 Chloride 114 H Carbon Dioxide 24 Anion Gap 10 L BUN 5 L Creatinine 0.65 Estim Creat Clear Calc 120.5 Estimated GFR > 60 Fasting Glucose 94 Calcium 9.2 D Preliminary micro results at discharge 10/23/23 09:11 Blood Culture - Preliminary Blood - Venous No growth after 48 hours. 10/23/23 09:11 Blood Culture - Preliminary Blood - Venous No growth after 48 hours. Discharge Plan Discharge Anticipated Discharge Date/Time: 10/27/23 09:07 Patient Disposition: Home, Self-Care Discharge Diagnosis: sepsis, dehydration Referrals: Milvia Stauffer MD [Primary Care Provider] - 1 Week Discharge Medications: New cefuroxime axetil 500 mg tablet 500 mg PO BID Qty: 6 0RF Continued trazodone 50 mg Tablet 50 mg PO BEDTIME Qty: 30 3RF ondansetron 8 mg Tablet,Disintegrating 8 mg PO Q8H PRN (Reason: Nausea And Vomiting) Qty: 30 2RF vitamin B complex Tablet 1 tab PO DAILY cyanocobalamin (vitamin B-12) [Vitamin B-12] 1,000 mcg Tablet 1,000 mcg PO DAILY ferrous sulfate 325 mg (65 mg iron) Tablet,Delayed Release (Dr/Ec) 325 mg PO DAILY Discharge Orders: Discharge Order (Routine); Ordered 10/27/23 Ordered By: Evelio Finch Diet: Advance to usual diet Activity on Discharge: As tolerated Stand Alone Forms: Patient Portal Discharge page Care Plan Goals: recovery Health Concerns: hypotension, fevers, diarrhea Plan of Treatment: 3 more days of empiric antibiotics (ceftin), plenty of hydration, monitor for worsening symptoms Assessment: see above
--- NOTE | 2023-10-27 09:54 | MHC.CM.PN ---
Pt has been medically cleared for DC, she will go home via private transport, self care.
[2023-10-27] MEDS: Heparin Sodium,Porcine Flush 50 UNITS/5 ML SYRINGE IVFLUSH (11:08)
== END 2023-10-27 11:45 | disposition home or self-care (01) | DRG 871 ==
LOC: HO.ED 12:20 → HO.EDOVER 12:44 → HO.ICU 12:49 → HO.IMC 10-24 09:00
PROVIDERS: Admitting Provider Internal Medicine Pulmonary Disease; Emergency Provider Emergency Medicine; PCP Internal Medicine; Visit Provider Internal Medicine
DX: A41.9 Sepsis, unspecified organism (principal); R57.8 Other shock; R65.21 Severe sepsis with septic shock; K52.1 Toxic gastroenteritis and colitis; E86.0 Dehydration; T45.1X5A Adverse effect of antineoplastic and immunosuppressive drugs, initial encounter; C50.912 Malignant neoplasm of unspecified site of left female breast; Z20.822 Contact with and (suspected) exposure to COVID-19; Z87.891 Personal history of nicotine dependence; Z79.899 Other long term (current) drug therapy
CPT/HCPCS: 0241U; 36415; 71045; 80048; 80053; 81003; 82040; 82803; 83605; 83735; 84100; 85025; 85027; 87040; 93005; 99285; J0613; J0692; J1642; J1644; J1885; J2270; J2405; J2543; J3010; J3480; J7120; P9047

== ENCOUNTER → 2023-10-23 08:33 | Outpatient (BNV) | payer OTHER, SELFPAY | PROVIDERS: Admitting Provider Internal Medicine Pulmonary Disease; Emergency Provider Emergency Medicine; PCP Internal Medicine; Visit Provider Internal Medicine Cardiovascular Disease | DX: R00.0 Tachycardia, unspecified (principal) | CPT/HCPCS: 93010 ==

== ENCOUNTER → 2023-10-23 12:24 | Outpatient (BNV) | payer OTHER, SELFPAY | PROVIDERS: Admitting Provider Internal Medicine Pulmonary Disease; Emergency Provider Emergency Medicine; PCP Internal Medicine; Visit Provider Internal Medicine | DX: C50.912 Malignant neoplasm of unspecified site of left female breast (principal) | CPT/HCPCS: 99232; 99239 ==

== ENCOUNTER → 2023-10-23 12:24 | Outpatient (BNV) | payer OTHER, SELFPAY | PROVIDERS: Admitting Provider Internal Medicine Pulmonary Disease; Emergency Provider Emergency Medicine; PCP Internal Medicine; Visit Provider Internal Medicine Pulmonary Disease | DX: R50.9 Fever, unspecified (principal); C50.912 Malignant neoplasm of unspecified site of left female breast | CPT/HCPCS: 99232; 99291 ==

== ENCOUNTER 2023-11-27 09:40 | Outpatient (AMB) | payer OTHER, SELFPAY ==
--- NOTE | 2023-11-27 10:02 | A.OFFPC_ITS ---
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 Intake Note: New patient visit Body Specialist Required: No Is last menstrual period known: No Allergies No Known Allergies Allergy (Verified 11/27/23 10:03) Medication List - Last Reconciled 11/27/23 by Maru Moy MD cyanocobalamin (vitamin B-12) (Vitamin B-12) 1,000 mcg PO DAILY ferrous sulfate 325 mg PO DAILY loratadine (Claritin) 10 mg PO DAILY ondansetron 8 mg PO Q8H PRN trazodone 50 mg PO BEDTIME vitamin B complex 1 tab PO DAILY Tobacco use date assessed: 11/27/23 Dental Screening Dental Screen Date: 11/27/23 Did you have a dental visit in the last 12 months?: Yes Did you have a dental problem in the last 6 months where you did not have access to dental care?: No Was dental information given to patient?: Patient has dentist HPI HPI Comments History of Present Illness Details 43-year-old lady with a past medical his tory of breast cancer presenting to [facility] care Heme/Onc: Breast cancer diagnosed 2022. Following with Dr Allen. Patient is undergoing 3 more chemo treatments. Then will likely undergo lumpectomy. Hospitalized end of September for dehydration/sepsis -required ICU level care, pressors. No significant nausea recently. Due for colonoscopy [facility] Medical History Invasive ductal carcinoma of breast, stage 2 Abnormal Pap smear of cervix Gallstone of bile duct with obstruction Surgical History History of tonsillectomy History of loop electrical excision procedure (LEEP) Hx of cholecystectomy Family History (Updated 11/27/23 @ 10:08 by Suni Chase CMA) Sister Breast cancer, Onset Age: 47 Father HTN (hypertension) Mother HTN (hypertension) Thyroid disorder Social History (Updated 11/27/23 @ 10:08 by Suni Chase CMA) Household Members: None Household Members Other:: boyfriend/caregiver Housing: House Do you presently have visiting nurse or other home services: No Unable to assess alcohol history related to: Unknown Alcohol intake: former Patient Tobacco Use Status: Former Tobacco user Tobacco use type: Cigarette Cigarette Packs Per Day: 1 Years Smoked: 4 e-Cigarette/Vaping Use: Never Used Second Hand Smoke Exposure: No Advance Directives Date on File: 10/23/23 service: No Current occupational status: employed 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 1. Little interest or pleasure in doing things: not at all 2. Feeling down, depressed, or hopeless: not at all 3. Trouble falling or staying asleep, or sleeping too much: several days 4. Feeling tired or having little energy: several days 5. Poor appetite or overeating: not at all 6. Feeling bad about yourself - or that you are a failure or have let yourself or your family down: not at all 7. Trouble concentrating on things, such as reading the newspaper or watching television: not at all 8. Moving or speaking so slowly that other people could have noticed. Or the opposite - being so fidgety or restless that you have been moving around a lot more than usual: not at all 9. Thoughts that you would be better off or of hurting yourself in some way: not at all Total score: 2 Depression Screening Interpretation: Negative (neg) Depression Screening Done: Yes [id number] - PHQ-9 Billing: Yes Source: Developed by Drs. Sudeep Soto, Pati King, Juan Calvo and colleagues, with an educational clint from [employer]. Thrive Questionnaire Date Thrive assessed: 11/27/23 I am a: Patient What is your living situation today?: I have a steady place to live Within the past 12 months, did the food you bought not last and you didn't have the money to get more?: Never true Within the past 12 months, did you worry whether your food would run out before you got money to buy more?: Never true Do you have trouble paying for medicines?: No Do you have trouble getting transportation to medical appointments?: No Do you have trouble paying your heating and electricity bill?: No Do you have trouble taking care of your child, family member or friend?: No Do you have trouble with day-to-day activities such as bathing, preparing meals, shopping, managing finances, etc.?: No Are you currently unemployed and looking for a job?: No Are you interested in more education?: No Please select the resources that you would like help with: None Currently or been in a relationship where the following occur: no concerns reported THRIVE Score: 0 AUDIT C Alcohol Use Questionnaire (AUDIT-C) 1. How often do you have a drink containing alcohol?: Monthly or less 2. How many drinks containing alcohol do you have on a typical day when you are drinking?: 1 or 2 3. How often do you have six or more drinks on one occasion?: Never Total Score: 1 RICARDA-7 AMB Questionnaire RICARDA-7 Date RICARDA - 7 assessed: 11/27/23 Feeling nervous, anxious, or on edge: 0 = Not at all Not being able to stop or control worryin = Not at all Worrying too much about different things: 0 = Not at all Trouble relaxin = Not at all Being so restless that it is hard to sit still: 0 = Not at all Becoming easily annoyed or irritable: 0 = Not at all Feeling afraid as if something awful might happen: 0 = Not at all Total RICARDA-7 score (0-4 normal; 5-9 mild; 10-14 moderate; 15-21 severe): 0 Source: Developed by Drs. Sudeep Soto, Pati King, Juan Calvo and colleagues, with an educational clint from [employer]. RICARDA-7 Assessment Billing RICARDA-7 Assessment Tool: RICARDA-7 Assessment 45967 Review of Systems Const Details: ROS CONSTITUTIONAL: Denies weight loss, fever and chills. HEENT: Denies changes in vision and hearing. RESPIRATORY: Denies SOB and cough. CV: Denies palpitations and CP GI: Denies abdominal pain, nausea, vomiting and diarrhea. : Denies dysuria and urinary frequency. MSK: Denies new myalgia and joint pain. SKIN: Denies rash and pruritus. NEUROLOGICAL: Denies headache PSYCHIATRIC: Denies recent changes in mood. Physical exam (Primary Care) Vital Signs: Last Vital Signs Temp 98 F 11/27/23 10:10 Pulse 95 11/27/23 10:10 Resp 16 11/27/23 10:10 BP 104/74 11/27/23 10:10 Pulse Ox 98 11/27/23 10:10 Oxygen Delivery Method Room Air 11/27/23 10:10 PHYSICAL EXAM: GENERAL: Alert and oriented x 3. NAD EYES: EOMI. Anicteric. HENT: Moist mucous membranes. No scleral icterus. No cervical lymphadenopathy. LUNGS: Clear to auscultation bilaterally. CARDIOVASCULAR: Regular rate and rhythm. No murmur. No JVD. ABDOMEN: Soft, non-tender +bs EXTREMITIES: No edema. Non-tender. SKIN: No rashes or lesions. Warm. NEUROLOGIC: No focal neurological deficits. CN II-XII grossly intact PSYCHIATRIC: Cooperative. Appropriate mood and affect BMI result Body Mass Index 26.7 Tobacco/Smoking Status: Tobacco use Status Tobacco use date assessed 11/27/23 11/27/23 10:12 Patient Tobacco Use Status Former Tobacco user 11/27/23 10:12 Tobacco use type Cigarette 11/27/23 10:12 e-Cigarette/Vaping Use Never Used 11/27/23 10:12 PHQ-9: PHQ-9 Score PHQ-9: Total score 2 11/27/23 10:12 Depression Screening Interpretation: Negative (neg) Thrive Assessment: Date of Thrive Assessment Date Thrive assessed 11/27/23 11/27/23 10:12 Currently or been in a relationship where the following occur: no concerns reported Assessment and Plan Assessment & Plan (1) Invasive ductal carcinoma of breast, stage 2: Code(s): C50.919 - Malignant neoplasm of unspecified site of unspecified female breast Qualifiers: Laterality: left Qualified Code(s): C50.912 - Malignant neoplasm of unspecified site of left female breast (2) Abnormal Pap smear of cervix: Comment: -neg. repeat 2024 Code(s): R87.619 - Unspecified abnormal cytological findings in specimens from cervix uteri Qualifiers: Abnormal Pap type: unspecified Qualified Code(s): R87.619 - Unspecified abnormal cytological findings in specimens from cervix uteri (3) Encounter to establish care: Comment: 43 y/o to establish care. Past medical, surgical, social and family history reviewed. Code(s): Z76.89 - Persons encountering health services in other specified circumstances Orders: Referrals Open Access Screening Colonoscopy Referral Z12.11 - Encounter for screening for malignant neoplasm of colon, Z12.12 - Encounter for screening for malignant neoplasm of rectum Coding Level of Care Code Tele New Pt Level 4 (19418) Complex EM visit Add On G2211 Diagnoses Infiltrating ductal carcinoma of left breast, stage 2 C50.912 Laterality: left Abnormal cervical Papanicolaou smear, unspecified abnormal pap finding R87.619 Abnormal Pap type: unspecified Encounter to establish care Z76.89 Additional Codes RICARDA-7 Assessment Billing - RICARDA-7 Assessment Tool: RICARDA-7 Assessment [id number] ([id number])
[2023-11-27 10:10] VITALS: BP 104/74; PULSE 95; RESP 16; TEMP 36.6; O2SAT 98; BMI 26.7
== END 2023-11-27 10:56 | disposition home or self-care (01) ==
PROVIDERS: PCP Internal Medicine; Visit Provider Internal Medicine
DX: C50.912 Malignant neoplasm of unspecified site of left female breast (principal); R87.619 Unspecified abnormal cytological findings in specimens from cervix uteri; Z76.89 Persons encountering health services in other specified circumstances
CPT/HCPCS: 99204

== ENCOUNTER 2023-12-30 09:05 | Outpatient (AMB) | payer OTHER, SELFPAY ==
--- NOTE | 2023-12-30 09:10 | A.OFFVIS_ITS ---
Vital Signs 12/30/23 09:16 Height 5 ft 8 in Weight 178 lb BMI 27.1 BP 124/81 Blood Pressure Location Lt brachial Position Sitting Pulse 111 H Intake Visit Reasons: Breast Cancer Intake Note: Patient is seen in office for follow up visit, breast exam. Pt c/o: just finished chemo and had an ultrasound done to measure the size, has gone down since mm: 09/16/23 L.OV:07/14/24 Pecan Gatherer Required: No Accompanied by: Sister Allergies No Known Allergies Allergy (Verified 12/30/23 09:14) Medication List - Last Reconciled 12/30/23 by Elliott Clements MD cyanocobalamin (vitamin B-12) (Vitamin B-12) 1,000 mcg PO DAILY ferrous sulfate 325 mg PO DAILY loratadine (Claritin) 10 mg PO DAILY trazodone 50 mg PO BEDTIME vitamin B complex 1 tab PO DAILY HPI Comments Details: 43-year-old female patient presenting with a recent screening mammogram with follow-up images obtained on 07/02/2023 which revealed a large, irregular, spiculated hypoechoic lobulated mass within the left breast centrally, measuring 3.2 cm felt to be highly suspicious for malignancy. This was confirmed on left breast ultrasound. In addition a left axillary lymph node enlargement was identified measuring up to 3.9 cm, also felt to be suspicious. Ultrasound biopsy was recommended (BI-RADS 5). She denies any palpable mass in either breast but does have some soreness in the left axilla. She denies any previous history of breast problems or breast surgery. Family history is significant for her sister developing breast cancer at the age of 48. Her sister did not undergo genetic testing. She is with 1 AB. On examination no definite palpable mass was noted. She subsequently underwent ultrasound-guided core biopsy of both the breast mass and axillary lymph node of the left breast on 07/08/2023. She returns today to review the pathology results. Pathology revealed a left breast invasive ductal carcinoma, grade 2-3, ER/KS positive, HER2 Krissy negative, Ki-67 40% (high); lymph node left axilla positive for metastatic carcinoma consistent with breast primary; [id number] (stage IIB). She was evaluated by Dr. Allen and dose dense AC recommended followed by Taxol q.week. She underwent genetic testing which was negative. She returns today to discuss surgical options. [facility] Medical History Invasive ductal carcinoma of breast, stage 2 Abnormal Pap smear of cervix Gallstone of bile duct with obstruction Surgical History History of tonsillectomy History of loop electrical excision procedure (LEEP) Hx of cholecystectomy Family History Sister Breast cancer, Onset Age: 47 Father HTN (hypertension) Mother HTN (hypertension) Thyroid disorder Social History Household Members: None Household Members Other:: boyfriend/caregiver Housing: House Are you a primary livestock caretaker to a significant other at home: No Do you presently have visiting nurse or other home services: No Unable to assess alcohol history related to: Unknown Alcohol intake: unknown Patient Tobacco Use Status: Former Tobacco user Tobacco use type: Cigarette Cigarette Packs Per Day: 1 Years Smoked: 4 e-Cigarette/Vaping Use: Never Used Second Hand Smoke Exposure: No Advance Directives Date on File: 10/23/23 service: No Current occupational status: employed 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 ,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 Current occupational exposures/hazards: Yes Sexual orientation: Straight/Heterosexual Gender identity: Female Cognitive needs: No Hearing needs: No Vision needs: No Female Reproductive History Menstrual Age of Menarche: 14 Review of Systems Const All systems reviewed & are unremarkable except as noted in HPI and below Denies chills, Denies fever(s), Denies headache(s), Denies poor appetite and De nies weakness ENT Denies headache(s) Card Denies chest pain, Denies irregular heart rhythm, Denies palpitations and Denies dyspnea Resp Denies cough, Denies excessive phlegm production and Denies dyspnea GI Denies abdominal pain, Denies bloating, Denies change in bowel habits, Denies constipation, Denies heartburn, Denies diarrhea, Denies nausea and Denies vomiting Denies urinary frequency and Denies nipple discharge Musc Denies back pain, Denies muscle weakness and Denies numbness Skin/Breast Details: Chronically inverted nipples bilaterally Denies breast swelling, Denies breast skin changes, Denies breast pain, Denies changing lesions, Denies nipple discharge and Denies unusual bruising Neuro Denies headache(s), Denies numbness, Denies paresthesias and Denies weakness Psych Denies anxiety and Denies depression Endo Denies palpitations Delgado/Lymph Denies lymphadenopathy Physical Exam Const General: cooperative and no acute distress Nutritional Appearance: well nourished Orientation/consciousness: patient oriented x3 Limitations: no limitations HEENT Head: Yes normocephalic and Yes atraumatic Ears: hearing grossly normal bilaterally Chest Other: Left breast: No definite palpable mass noted at site of previous mass. No palpable enlarged lymph nodes appreciated. No overlying skin changes, nipple discharge or nipple retraction. Right breast, exam deferred. Resp Effort & Inspection: normal respiratory effort, no audible wheezes, no cough and no respiratory distress Cardio Jugular venous distension: no JVD GI Inspection: Yes normal to inspection Skin Other: Warm, dry, no rash Neuro General: patient oriented x3 Extrem General: Yes no clubbing, cyanosis or edema Assessment & Plan Assessment & Plan (1) Invasive ductal carcinoma of breast, stage 2: Code(s): C50.919 - Malignant neoplasm of unspecified site of unspecified female breast Category: Medical Qualifiers: Laterality: left Qualified Code(s): C50.912 - Malignant neoplasm of unspecified site of left female breast Plan 43-year-old female patient found to have a spiculated mass of the left breast with enlarged lymph nodes noted on mammogram and ultrasound, biopsy proven invasive ductal carcinoma grade 2-3, ER/KS positive, HER2 Krissy negative, Ki-67 high, positive left axillary lymph node with metastatic breast CA. she underwent chemotherapy (AC x4 followed by Taxol times 12). Her last dose of chemotherapy was 12/16/2023. Plan is to wait approximately 6 weeks following her last dose to undergo surgery. I think she is a perfect candidate for lumpectomy and axillary node dissection given her biopsy-proven positive for metastatic breast cancer, left axilla. After discussion of the procedure, risks, and alternatives, she consents to the surgery. She is tentatively scheduled for 01/28/2024. Coding Level of Care Code Est Pt Level 4 (19741) Diagnoses Infiltrating ductal carcinoma of left breast, stage 2 C50.912 Laterality: left
[2023-12-30 09:16] VITALS: BP 124/81; PULSE 111; BMI 27.1
== END 2023-12-30 09:29 | disposition home or self-care (01) ==
PROVIDERS: PCP Internal Medicine; Visit Provider Surgery
DX: C50.912 Malignant neoplasm of unspecified site of left female breast (principal)
CPT/HCPCS: 99214

== ENCOUNTER → 2023-12-30 09:05 | Outpatient (BNVA) | payer OTHER, SELFPAY | PROVIDERS: PCP Internal Medicine; Visit Provider Surgery ==

== ENCOUNTER 2024-01-23 11:13 | Outpatient (REF) | payer OTHER, SELFPAY ==
--- NOTE | ~2024-01-23 | CT_ITS ---
EXAMINATION: CT CHEST WITH CONTRAST CLINICAL INFORMATION: History of breast cancer. COMPARISON: 07/25/2023 TECHNIQUE: Multidetector volumetric CT imaging of the chest was obtained after the administration of 65 mL of Omnipaque 350 intravenous contrast without immediate adverse reactions. Axial MIP volume rendering provided. Sagittal and coronal reformatted images were obtained. This CT examination was performed using dose optimization techniques as appropriate, variously including the following: *Automated exposure control *Adjustment of mA and/or kV according to patient size (this includes techniques or standardized protocols for targeted exams where dose is matched to indication/reason for exam; i.e. extremities or head) *Use of iterative reconstruction technique DLP: 108 mGy-cm FINDINGS: LUNGS: No suspicious pulmonary nodule. No focal consolidation. Central airways are patent. MEDIASTINUM: Imaged thyroid gland is unremarkable. No hilar or mediastinal lymphadenopathy. Great vessels are of normal caliber. Heart size is normal. No pericardial effusion. PLEURA: No pleural effusion. AXILLA: Infiltrating 3.0 x 1.1 cm enhancing left medial breast lesion is smaller. Multiple left axillary lymph nodes have decreased in size. Left axillary lymph node currently measures 1.1 x 0.9 cm. Right chest wall Port-A-Cath with tip approximating the right atrium. UPPER ABDOMEN: Marked hepatic steatosis. Status post cholecystectomy. Left subdiaphragmatic nodules appear smaller. OSSEOUS STRUCTURES: No destructive bone lesions. CT/CT chest w IV con IMPRESSION: No suspicious pulmonary nodule. Interval decrease in size of index left medial breast lesion. Multiple left axillary lymph nodes have decreased in size. Left subdiaphragmatic nodules appear smaller. Hepatic steatosis.
[2024-01-23] MEDS: iohexoL 350 MG/ML 75 ML INFUS..BTL 65 ML IV (12:18)
== END 2024-01-23 11:14 | disposition home or self-care (01) ==
LOC: HO.CT 11:13
PROVIDERS: Visit Provider Internal Medicine
DX: C78.00 Secondary malignant neoplasm of unspecified lung (principal)
CPT/HCPCS: 71260; Q9967

== ENCOUNTER 2024-02-02 07:44 | Outpatient (REF) | payer OTHER, SELFPAY ==
--- NOTE | ~2024-02-02 | US_ITS ---
EXAMINATION: MM ULTRASOUND GUIDED RFID LOCALIZATION BREAST, LEFT CLINICAL INFORMATION: 43-year-old female, invasive ductal carcinoma with positive left axillary lymph node, status post neoadjuvant chemotherapy. Localization of residual tumor at 11:00 left breast and residual left axillary lymph node previously biopsied. COMPARISON: 07/08/2023 ultrasound core biopsy with postbiopsy mammography. 09/16/2023 follow-up left breast ultrasound. TECHNIQUE NEEDLE LOC: Proper informed consent is obtained from the patient after discussion of the procedure, potential risks and complications, and alternatives including declining the procedure today. Patient was given an opportunity for questions. The patient appeared to understand. The patient consented to the procedure and signed the consent form. LEFT BREAST MASS 11:00 AXIS: GUIDANCE: Ultrasound. APPROACH: Superolateral. TARGET: Residual shadowing mass with immediately laterally adjacent hydromark butterfly biopsy clip. ANESTHESIA: carbonated lidocaine 1%: 5 mL. LOCALIZATION SYSTEM: [employer] LOCallizer Wire-Free Guidance System with 7 cm 12g needle applicator. RADIOFREQUENCY TAG: ID # [id number] DERMATOTOMY: Single skin-thang dermatotomy performed. RF Tag ID confirmed with LOCalizer Guidance System prior to placement. The skin is prepped and local anesthesia administered. The needle is positioned and RFID tag deployed. Final images demonstrate the LOCalizer RF tag to reside 2.0 cm superolateral to the small amount of residual tumor at 11:00. It appears the RFID migrated along the approach tract. LEFT AXILLARY LYMPH NODE: GUIDANCE: Ultrasound. APPROACH: Lateral. TARGET: Lymph node with open coil biopsy clip. ANESTHESIA: carbonated lidocaine 1%: 5 mL. LOCALIZATION SYSTEM: [employer] LOCallizer Wire-Free Guidance System with 7 cm 12g needle applicator. RADIOFREQUENCY TAG: ID # [id number] DERMATOTOMY: Single skin-thang dermatotomy performed. RF Tag ID confirmed with LOCalizer Guidance System prior to placement. The skin is prepped and local anesthesia administered. The needle is positioned and RFID tag deployed. Final images demonstrate the LOCalizer RF tag to reside within the lower pole of the lymph node. The patient tolerated the procedure well and had no immediate complications. Dressings placed and home instructions reviewed. US/US breast needle loc LT IMPRESSION: -Status post left breast RFID localization, 11:00 axis residual mass. Please note, final images demonstrate migration of the RFID tag along the approach tract by 2.[address] Clements was made aware via secure text at 10:40 AM, 02/02/2024, and images were labeled appropriately. -Status post left axillary lymph node RFID localization, with final images demonstrating RFID tag in the inferior aspect of the lymph node.
--- NOTE | ~2024-02-02 | US_ITS ---
EXAMINATION: MM ULTRASOUND GUIDED RFID LOCALIZATION BREAST, LEFT CLINICAL INFORMATION: 43-year-old female, invasive ductal carcinoma with positive left axillary lymph node, status post neoadjuvant chemotherapy. Localization of residual tumor at 11:00 left breast and residual left axillary lymph node previously biopsied. COMPARISON: 07/08/2023 ultrasound core biopsy with postbiopsy mammography. 09/16/2023 follow-up left breast ultrasound. TECHNIQUE NEEDLE LOC: Proper informed consent is obtained from the patient after discussion of the procedure, potential risks and complications, and alternatives including declining the procedure today. Patient was given an opportunity for questions. The patient appeared to understand. The patient consented to the procedure and signed the consent form. LEFT BREAST MASS 11:00 AXIS: GUIDANCE: Ultrasound. APPROACH: Superolateral. TARGET: Residual shadowing mass with immediately laterally adjacent hydromark butterfly biopsy clip. ANESTHESIA: carbonated lidocaine 1%: 5 mL. LOCALIZATION SYSTEM: [employer] LOCallizer Wire-Free Guidance System with 7 cm 12g needle applicator. RADIOFREQUENCY TAG: ID # [id number] DERMATOTOMY: Single skin-thang dermatotomy performed. RF Tag ID confirmed with LOCalizer Guidance System prior to placement. The skin is prepped and local anesthesia administered. The needle is positioned and RFID tag deployed. Final images demonstrate the LOCalizer RF tag to reside 2.0 cm superolateral to the small amount of residual tumor at 11:00. It appears the RFID migrated along the approach tract. LEFT AXILLARY LYMPH NODE: GUIDANCE: Ultrasound. APPROACH: Lateral. TARGET: Lymph node with open coil biopsy clip. ANESTHESIA: carbonated lidocaine 1%: 5 mL. LOCALIZATION SYSTEM: [employer] LOCallizer Wire-Free Guidance System with 7 cm 12g needle applicator. RADIOFREQUENCY TAG: ID # [id number] DERMATOTOMY: Single skin-thang dermatotomy performed. RF Tag ID confirmed with LOCalizer Guidance System prior to placement. The skin is prepped and local anesthesia administered. The needle is positioned and RFID tag deployed. Final images demonstrate the LOCalizer RF tag to reside within the lower pole of the lymph node. The patient tolerated the procedure well and had no immediate complications. Dressings placed and home instructions reviewed. US/US breast needle loc ea add IMPRESSION: -Status post left breast RFID localization, 11:00 axis residual mass. Please note, final images demonstrate migration of the RFID tag along the approach tract by 2.[address] Clements was made aware via secure text at 10:40 AM, 02/02/2024, and images were labeled appropriately. -Status post left axillary lymph node RFID localization, with final images demonstrating RFID tag in the inferior aspect of the lymph node.
[2024-02-02] MEDS: Lidocaine HCl 1 % 20 ML VIAL 6 ML SUBCUT (09:19)
[2024-02-02] MEDS: Sodium Bicarbonate 8.4% 50 MEQ/50 ML VIAL SUBCUT (09:20)
== END 2024-02-02 07:45 | disposition home or self-care (01) ==
LOC: HO.MAMMO 07:44
PROVIDERS: Visit Provider Surgery
DX: Z85.3 Personal history of malignant neoplasm of breast (principal); Z98.890 Other specified postprocedural states; Z92.21 Personal history of antineoplastic chemotherapy
CPT/HCPCS: 19285; 19286; 77062; 77065

== ENCOUNTER → 2024-02-02 08:00 | Outpatient (BNV) | payer OTHER, SELFPAY | PROVIDERS: Visit Provider Radiology Diagnostic Radiology | DX: R92.8 Other abnormal and inconclusive findings on diagnostic imaging of breast (principal) | CPT/HCPCS: 19085; 19086; 77065 ==

== ENCOUNTER 2024-02-04 05:57 | Day surgery (SDC) | payer OTHER, SELFPAY ==
[2024-01-28 13:19] VITALS: BP 99/69; PULSE 82; RESP 18; O2SAT 98; BMI 24.9
--- NOTE | 2024-02-03 10:39 | HO.ANESPROP2 ---
HPI - Anesthesia Eval Consult details Narrative: 43yo F for Left Breast Lumpectomy w/LOCalizer, Axillary Node Dissection PAT 01/28/[address] Amber FISHER Active Problems Active Problems: All Active Problems Encounter to establish care (Acute) Axillary lymphadenopathy (Acute) Abnormal ultrasound of breast (Acute) Encounter for annual routine gynecological examination (Acute) Invasive ductal carcinoma of breast, stage 2 (Chronic) Abnormal Pap smear of cervix (Acute) Past Medical History Medical History Port-A-Cath in place Invasive ductal carcinoma of breast, stage 2 Abnormal Pap smear of cervix Gallstone of bile duct with obstruction Family History Family History Sister Breast cancer, Onset Age: 47 Father HTN (hypertension) Mother HTN (hypertension) Thyroid disorder Surgical History Surgical History Hx of breast biopsy History of ERCP History of tonsillectomy History of loop electrical excision procedure (LEEP) Hx of cholecystectomy Social History Social History Household Members: Other Household Members Other:: self Housing: House Are you a primary pulmonary care nurse to a significant other at home: No Do you presently have visiting nurse or other home services: No Unable to assess alcohol history related to: Unknown Alcohol intake: unknown Comment: counts correct Patient Tobacco Use Status: Former Tobacco user Tobacco use type: Cigarette Cigarette Packs Per Day: 1 Years Smoked: 4 e-Cigarette/Vaping Use: Never Used Second Hand Smoke Exposure: No Advance Directives Date on File: 10/23/23 service: No Current occupational status: employed 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 ,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 Current occupational exposures/hazards: Yes Sexual orientation: Straight/Heterosexual Gender identity: Female Cognitive needs: No Hearing needs: No Vision needs: No Meds Allergies Allergy/AdvReac Type Severity Reaction Status Date / Time No Known Allergies Allergy Verified 12/30/23 09:14 Home Medications ?Medication ?Instructions ?Recorded ?Confirmed ?Last Taken ?Type cyanocobalamin (vitamin B-12) 1,000 mcg PO DAILY 10/23/23 02/04/24 Unknown History 1,000 mcg tablet (Vitamin B-12) ferrous sulfate 325 mg (65 mg 325 mg PO DAILY 10/23/23 02/04/24 Unknown History iron) tablet,delayed release vitamin B complex 1 tab PO DAILY 10/23/23 02/04/24 Unknown History loratadine 10 mg tablet (Claritin) 10 mg PO DAILY PRN allergies 11/18/23 02/04/24 Unknown History multivitamin 1 tab PO DAILY 01/28/24 02/04/24 Unknown History Exam Height,Weight and Vital Signs: Height 5 ft 8 in Weight 74.389 kg Last Vital Signs Pulse 82 01/28/24 13:19 Resp 18 01/28/24 13:19 BP 99/69 01/28/24 13:19 Pulse Ox 98 01/28/24 13:19 O2 Del Method Room Air 01/28/24 13:19 Pertinent Lab Results Pertinent Lab Results: Laboratory Tests 01/16/24 10:15 WBC 5.1 Hgb 11.9 L Hct 35.0 L Plt Count 268 Sodium 142 Potassium 3.5 Chloride 110 H Carbon Dioxide 22 BUN 10 Creatinine 0.85 Narrative Narrative: EKG 09/2023 Vent. Rate : 116 BPM Atrial Rate : 116 BPM P-R Int : 118 ms QRS Dur : 084 ms QT Int : 326 ms P-R-T Axes : 033 020 033 degrees QTc Int : 453 ms Sinus tachycardia Low voltage QRS Borderline ECG No previous ECGs available Assessment and Plan Assessment Anesthesia Assessment: Chart Reviewed
[2024-02-04] VITALS (18 sets, daily range): BP systolic 116–160; BP diastolic 60–92; PULSE 63–100; RESP 16–20; TEMP 36.2–37.5; O2SAT 95–100; BMI 24.4; BMI 27.7
--- NOTE | ~2024-02-04 | MM_ITS ---
EXAMINATION: MM SPECIMEN X-RAY BREAST, RIGHT BREAST CLINICAL INDICATION: 43-year-old female status post neoadjuvant chemotherapy for left breast invasive ductal carcinoma with positive left axillary lymph node. 2 specimen radiographs right breast status post breast conservation lumpectomy of both localized 11:00 mass and left axillary metastatic lymph node. COMPARISON: Left breast needle localization x2 and postprocedure mammography 02/02/2024. TECHNIQUE: Digital mammographic radiographs of the breast and axillary postoperative specimens were obtained. MM/MM surgical specimen FINDINGS/IMPRESSION: First specimen submitted demonstrates the presence of the RF ID chip, butterfly shaped biopsy clip, and residual mass/scar tissue contained within the central specimen. Second specimen submitted demonstrates the presence of the axillary RF ID chip, open coil-shaped biopsy clip, and several lymph nodes including the index node contained within the specimen. Results were called to Dr. Elliott Clements in the operating room at the time of imaging. Await pathology.
[2024-02-04] MEDS: Lactated Ringers 1,000 ML 100 ML IVCONT (06:38)
[2024-02-04 07:05] LABS: UPreg QC Valid YES; Urine Pregnancy NEGATIVE (NEGATIVE)
--- NOTE | 2024-02-04 07:10 | MHC.SHP ---
Pre-Procedural Eval Section A - 24 Hr Update-Section A only Date of Service: 02/04/24 The patient is an INPATIENT: No Changes since office visit: Yes Patient answered all questions; No Cold of Flu in the past 2 weeks, No New Medical Problems and No Changes in Medication The patient has been examined within 24 hours of the surgical procedure. The History & Physical has been completed within 30 days and I have reviewed it.: No Section B - Complete if H&P > 30 days Chief Complaint: Malignant neoplasm of unspecified site of left Details of Present Illness: Patient denies any new symptoms since last visit. Relevant Family History (Specify if Yes): No Relevant Social History: None Present Medications: see Short Stay Collaborative assessment Medical History: No relevant PMH History of Previous Operations: No relevant previous surgery Allergies: Allergies Allergy/AdvReac Type Severity Reaction Status Date / Time No Known Allergies Allergy Verified 12/30/23 09:14 Review of Systems Sugical H&P ROS: Negative: Constitution, Cardiovascular, Respiratory, Neurological, Psychiatric, Hem-Onc, Allergic/Immunologic, Gastrointestinal, Genitourinary, Musculoskeletal, Integumentary, Endocrine and Eyes/Ears/Nose/Throat Exam Surgical H&P Exam: Normal: HEENT, Normal: Heart, Normal: Lungs, Normal: Extremities, Normal: Abdomen, Normal: Skin and Normal: Neurological Plan Diagnosis/Plan: Unchanged I have reviewed the history and physical and performed a pertinent physical examination on my patient. No changes have occurred unless specified. Time Spent With Patient Time: Total time managing care of this patient today ____ minutes.
--- NOTE | 2024-02-04 07:22 | P.CONAN_ITS ---
FORMERLY [facility], [facility] Active Problems Active Problems: All Active Problems Encounter to establish care (Acute) Axillary lymphadenopathy (Acute) Abnormal ultrasound of breast (Acute) Encounter for annual routine gynecological examination (Acute) Invasive ductal carcinoma of breast, stage 2 (Chronic) Abnormal Pap smear of cervix (Acute) Past Medical History Medical History Port-A-Cath in place Invasive ductal carcinoma of breast, stage 2 Abnormal Pap smear of cervix Gallstone of bile duct with obstruction Family History Family History Sister Breast cancer, Onset Age: 47 Father HTN (hypertension) Mother HTN (hypertension) Thyroid disorder Surgical History Surgical History Hx of breast biopsy History of ERCP History of tonsillectomy History of loop electrical excision procedure (LEEP) Hx of cholecystectomy History of Problems with Anesthesia: No Social History Social History Household Members: None Household Members Other:: boyfriend Housing: House Are you a primary md do resident urgent care to a significant other at home: No Do you presently have visiting nurse or other home services: No Unable to assess alcohol history related to: Unknown Alcohol intake: unknown Patient Tobacco Use Status: Former Tobacco user Tobacco use type: Cigarette Cigarette Packs Per Day: 1 Years Smoked: 4 e-Cigarette/Vaping Use: Never Used Second Hand Smoke Exposure: No Use of substances other than those prescribed or required for medical reasons: No Have you been hit, kicked, punched, or otherwise hurt by someone within the past year? 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 Current occupational exposures/hazards: Yes Sexual orientation: Straight/Heterosexual Gender identity: Female Cognitive needs: No Hearing needs: No Vision needs: No Meds Allergies Allergy/AdvReac Type Severity Reaction Status Date / Time No Known Allergies Allergy Verified 12/30/23 09:14 Active Medications: Current Medications Lactated Ringer's (Lr) 1,000 mls @ 100 mls/hr IVCONT .Q10H VANE Last Admin: 02/04/24 06:38 Dose: 100 mls/hr Home Medications ?Medication ?Instructions ?Recorded ?Confirmed ?Last Taken ?Type cyanocobalamin (vitamin B-12) 1,000 mcg PO DAILY 10/23/23 01/28/24 Unknown History 1,000 mcg tablet (Vitamin B-12) ferrous sulfate 325 mg (65 mg 325 mg PO DAILY 10/23/23 02/04/24 02/03/24 08:30 History iron) tablet,delayed release vitamin B complex 1 tab PO DAILY 10/23/23 01/28/24 Unknown History loratadine 10 mg tablet (Claritin) 10 mg PO QPM allergies 11/18/23 01/28/24 Unknown History multivitamin 1 tab PO DAILY 01/28/24 01/28/24 Unknown History Exam Height,Weight and Vital Signs: Height 5 ft 8 in Weight 72.745 kg Last Vital Signs Temp 966.9 F H 02/04/24 06:38 Pulse 75 02/04/24 06:38 Resp 16 02/04/24 06:38 BP 116/79 02/04/24 06:38 Pulse Ox 98 02/04/24 06:38 O2 Del Method Room Air 02/04/24 06:38 Pertinent Lab Results Pertinent Lab Results: Laboratory Tests 02/04/24 06:10 Urine Test NEGATIVE Airway Mallampati Class: III (small mouth) TM Dist: >3cm Neck ROM: Full Loose/Missing/Broken Teeth: No Heart: RRR Lungs: CTA Assessment and Plan Assessment Anesthesia Assessment: Anesthesia Plan Discussed and Chart Reviewed Final Anesthetic Review History of Problems with Anesthesia: No NPO: Yes ASA Class: III Final Preanesthetic Review: Meds/Allgs Chart Reviewed, Consent Obtained/Reviewed and Anes Risks/Benef Reviewed Patient Risk: Intermediate Procedure Risk: Low Anesthetic Plan Anesthetic Plan: GA Disposition: Standard PACU
--- NOTE | 2024-02-04 10:05 | W.PM.OPN ---
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 She underwent neoadjuvant chemotherapy and presents now for left breast lumpectomy with localizer, and left axillary node dissection. Operative findings: Marking clip and localizer clip noted within the specimen x-ray of both the lumpectomy and axillary node dissection specimen Specimen: Left breast lumpectomy, left axillary node dissection Estimated blood loss: 10 mL Complications: None Procedure details: Patient was brought to the OR and placed in a supine position. After administering general anesthesia the patient's left breast and axilla were prepped with ChloraPrep and draped in a sterile fashion. A surgical time-out was called the consent confirmed. Patient received preoperative antibiotics and Venodyne boots were in place. Local anesthesia was then infiltrated in a circumareolar location from between 10 and 02:00 o'clock. Incision was then made with a scalpel carried out through subcutaneous tissue. Superior and inferior skin flaps were then created with electrocautery. Using the localizer, the specimen and clip were dissected from superior, medial, lateral, and inferior. The specimen was then dissected off the chest wall. Dissection was continued down over the pectoralis muscle. Specimen was then marked with a long suture on the lateral margin, short suture on the superior margin and looped suture on the posterior margin. The specimen was immediately x-rayed in the room and the marking clips confirmed within the specimen. Attention was then directed to the axilla which was also marked with the localizer clip at the positive node. A curvilinear incision was made at the lower end of the axilla. The incision was carried out through subcutaneous tissue past clavipectoral fascia up to the axillary fat pad. Dense axillary fat tissue was noted perhaps from prior treatment and biopsy. Margins including the pectoralis major and minor muscle, latissimus Dorsi muscle, axillary vein and chest wall were identified. The thoracodorsal and long thoracic nerves were identified and preserved. The intercostal brachial nerve was closely adherent to the involved lymph nodes and was sacrificed during the procedure. Specimen was removed and sent to pathology for further examination. Specimen x-ray confirmed the marking clip within the specimen. Both the breast and axillary wounds were then irrigated with saline solution and checked for hemostasis. A large Omid-Ma drain was placed within the axillary compartment and brought out through a separate stab wound. This was secured to the chest wall using a 3-0 nylon suture. The Omid-Ma was connected to bulb suctioned. The chest wall wounds were then marked with marking clips. Deep breast tissue was then reapproximated over pectoralis muscle using interrupted 3-0 Polysorb sutures. Subcutaneous tissue and dermis were then reapproximated using interrupted 3-0 Polysorb sutures. Skin was closed in the breast incision using a subcuticular 4-0 Polysorb suture. The clavipectoral fascia was reapproximated using interrupted 3-0 Polysorb suture. Dermis was reapproximated using interrupted 3-0 Polysorb sutures. Skin was closed using a running subcuticular 4-0 Polysorb suture. Steri-Strips, 2 x 2 gauze and Tegaderm were then applied. The patient tolerated the procedure well. Sponge, instrument, and needle counts reported as correct. The patient was transferred to PACU in stable condition. Please note: procedure performed with curative intent. Breast Axillary Dissection Resection was performed within the boundaries of the axillary vein, chest wall (serratus anterior), and latissimus dorsi: Yes The long thoracic and thoracodorsal nerves were spared during dissection: Yes Attempts were made to spare the intercostobrachial nerves during dissection if possible: Yes If one or more level III nodes is/are removed, then document why: n/a General Surg. - Synoptic Notes Breast Axillary Dissection Resection was performed within the boundaries of the axillary vein, chest wall (serratus anterior), and latissimus dorsi: Yes The long thoracic and thoracodorsal nerves were spared during dissection: Yes Attempts were made to spare the intercostobrachial nerves during dissection if possible: Yes If one or more level III nodes is/are removed, then document why: n/a
[2024-02-04] MEDS: fentaNYL citrate/PF 100 MCG/2 ML VIAL 25 MCG IVPUSH ×8 (10:20→11:10)
[2024-02-04] MEDS: oxyCODONE HCl Immed Release 5 MG TABLET PO (10:49)
[2024-02-04] MEDS: HYDROmorphone HCl 0.5 MG/0.5 ML SYRINGE IVPUSH (12:03)
[2024-02-04] MEDS: Dextrose 5 % and Lactated Ring 1,000 ML 100 ML IVCONT ×2 (12:05→21:39)
--- NOTE | 2024-02-04 14:13 | PHA.MEDREC ---
Pharmacy Consult ? Medication Reconciliation Pharmacy has completed the medication reconciliation. Went and spoke to patient and she has someone at her bedside who was not sure how patient took her medications and when the last time she took them. She was able confirm that she was taking the vitamins, trazodone and loratadine as needed. The patient woke up a little bit and was able to confirm she is taking her Ferrous Sulfate then fell back asleep.
[2024-02-04] MEDS: Morphine Sulfate 4 MG/ML CARTRIDGE IVPUSH ×3 (14:15→21:36)
[2024-02-04] MEDS: Acetaminophen 1,000 MG/100 ML PIGGYBACK 400 MG IV ×2 (15:43→21:40)
[2024-02-04] MEDS: Ketorolac Tromethamine 15 MG/ML VIAL IVPUSH (16:24)
[2024-02-05 03:20] VITALS: BP 115/59; PULSE 72; RESP 16; TEMP 36.2; O2SAT 97
[2024-02-05] MEDS: Morphine Sulfate 4 MG/ML CARTRIDGE IVPUSH (03:30)
[2024-02-05] MEDS: Acetaminophen 1,000 MG/100 ML PIGGYBACK 400 MG IV ×2 (03:35→08:30)
[2024-02-05] MEDS: Dextrose 5 % and Lactated Ring 1,000 ML 100 ML IVCONT (06:40)
--- NOTE | 2024-02-05 07:30 | PM.PNGS ---
Subjective Subjective Date of Service: 02/05/24 <[facility] Last Filed: 02/05/24 07:49> 02/05/24 <Alice Alvarado PA-C - Last Filed: 02/05/24 09:58> 02/05/24 <Elliott Clements MD - Last Filed: 02/05/24 11:19> Interval history: Patient states she is feeling well today with no complaints other than pain of the left axilla/upper arm. Denies nausea, vomiting, abdominal pain. IV pain medication helping as of 10pm last night, and pain is about 5/10. No new numbness or tingling of the left arm. Tolerating PO diet. Urinating but no bowel movements or flatus. <[facility] Last Filed: 02/05/24 07:49> Physical Exam Vital Signs: Vital Signs: Last Vital Signs Temp 97.2 F 02/05/24 03:20 Pulse 72 02/05/24 03:20 Resp 16 02/05/24 03:20 BP 115/59 L 02/05/24 03:20 Pulse Ox 97 02/05/24 03:20 O2 Del Method Room Air 02/05/24 03:20 BMI result Body Mass Index 27.7 <[facility] Last Filed: 02/05/24 07:49> Const: General: comfortable, no acute distress and awake <[facility] Filed: 02/05/24 07:49> Orientation/consciousness: patient oriented x3 <[facility] Filed: 02/05/24 07:49> Chest: Other: L breast without erythema, mild tenderness to palpation. dressings c/d/i. Drain with scant serosanguineous fluid. <[facility] Last Filed: 02/05/24 07:49> Resp: Effort & Inspection: normal respiratory effort and able to speak in complete sentences <[facility] Last Filed: 02/05/24 07:49> Skin: General skin exam: no rashes or lesions noted <[facility] Last Filed: 02/05/24 07:49> Neuro: General: patient oriented x3 <[facility] Filed: 02/05/24 07:49> Objective Data Active Medications Calcium Carbonate (Calcium Carbonate 750 Mg Tab.Chew) 750 mg PO Q4H PRN PRN Reason: Heartburn Acetaminophen (Ofirmev) 1,000 mg in 100 mls @ 400 mls/hr IV Q6H [facility] Stop: 02/05/24 09:14 Last Infusion: 02/05/24 03:56 Dose: Infused Documented By: ASHOK Dextrose/Lactated Ringer's (D5lr) 1,000 mls @ 100 mls/hr IVCONT .Q10H [facility] Last Admin: 02/05/24 06:40 Dose: 100 mls/hr Documented By: ASHOK Ketorolac Tromethamine (Ketorolac Tromethamine 15 Mg/Ml Vial) 15 mg IVPUSH Q6H PRN PRN Reason: Pain, Mild (Pain Scale 1-3) Last Admin: 02/04/24 16:24 Dose: 15 mg Documented By: JEANA Magnesium Hydroxide (Milk Of Magnesia 30 Ml Oral.Susp) 30 ml PO DAILY PRN PRN Reason: Constipation Morphine Sulfate (Morphine Sulfate 4 Mg/Ml Cartridge) 4 mg IVPUSH Q3H PRN; Protocol PRN Reason: Pain, Severe (Pain Scale 7-10) Last Admin: 02/05/24 03:30 Dose: 4 mg Documented By: ASHOK Ondansetron HCl (Ondansetron Hcl 4 Mg/2 Ml Vial) 4 mg IVPUSH QID PRN PRN Reason: Nausea Oxycodone HCl (Oxycodone Hcl Immed Release 5 Mg Tablet) 5 mg PO Q6H PRN PRN Reason: Pain, Moderate(Pain Scale 4-6) Trazodone HCl (Trazodone Hcl 50 Mg Tablet) 50 mg PO BEDTIME [facility] Last Admin: 02/04/24 21:35 Dose: Not Given Documented By: ASHOK Non-Admin Reason: Patient Refused <Devika Joshi - Last Filed: 02/05/24 07:49> Procedures Date of Service Date of Service: 02/05/24 <Devika Joshi - Last Filed: 02/05/24 07:49> 02/05/24 <Alice Alvarado PA-C - Last Filed: 02/05/24 09:58> 02/05/24 <Elliott Clements MD - Last Filed: 02/05/24 11:19> Progress Note: A&P Assessment and plan (1) Axillary lymphadenopathy: Status: Acute <[facility] Last Filed: 02/05/24 07:49> (2) Invasive ductal carcinoma of breast, stage 2: Status: Chronic <[facility] - Last Filed: 02/05/24 07:49> (3) Status post left breast lumpectomy: Status: Acute <Devika [facility] - Last Filed: 02/05/24 07:49> Assessment and Plan: Continue PO diet as tolerated. Continue IV pain medication, trial transition to PO pain medication. Monitor for numbness or tingling of the left arm/hand. Discharge once PO pain medication is tolerated. Continue to monitor for flatus and bowel movements. Dressing changes once daily, empty drain 1-2 times daily. <Devika Dozier - Last Filed: 02/05/24 07:49> POD #1 s/p Left breast lumpectomy with localizer, left axillary node dissection. Doing fairly well post op, still requiring IV pain medication. Mild incisional and left axillary tenderness, dressings c/d/i. CONNER drain with scant output, keep in place. Encouraged use of left arm as tolerated. Likely home tomorrow with [facility] services for drain care if pain controlled on oral analgesics. <Alice Alvarado PA-C - Last Filed: 02/05/24 09:58> POD #1 s/p Left breast lumpectomy with localizer, left axillary node dissection. Doing fairly well post op, still requiring IV pain medication. Mild incisional and left axillary tenderness, dressings c/d/i. CONNER drain with scant output, keep in place. Encouraged use of left arm as tolerated. Likely home tomorrow with [facility] services for drain care if pain controlled on oral analgesics. Patient seen and examined and agree with the above assessment and plan. She is feeling much improved today and would prefer to go home today. Will check back later to see if she tolerates just po meds. <Elliott Clements MD - Last Filed: 02/05/24 11:19> Time Spent With Patient Time: Total time managing care of this patient today ____ minutes. <Devika Joshi - Last Filed: 02/05/24 07:49> Quality Stroke Does the patient have a stroke diagnosis?: No <Alice Alvarado PA-C - Last Filed: 02/05/24 09:58> VTE Prior VTE?: No <Alice Alvarado PA-C - Last Filed: 02/05/24 09:58> VTE Risk Level:: Surgical - low <Devika Joshi - Last Filed: 02/05/24 07:49> VTE Device Contraindication: N/A - Device Ordered <Devika Joshi - Last Filed: 02/05/24 07:49> VTE Drug Contraindication: Treatment Not Indicated <Devika Joshi - Last Filed: 02/05/24 07:49>
[2024-02-05] MEDS: ondansetron HCL 4 MG/2 ML VIAL IVPUSH (08:29)
--- NOTE | 2024-02-05 09:07 | HO.POSTANES ---
Post Anesthesia Evaluation Post Anesthesia Evaluation Date of Service: 02/05/24 Vital Signs: Vital Signs Temp Pulse Resp BP Pulse Ox O2 Del Method 02/05/24 03:20 97.2 F 72 16 115/59 L 97 Room Air Anesthesia: General Endotracheal-GETA Mental Status: Awake Pain Control: Satisfactory Nausea/Vomiting: None Hydration: Adequate Anesthesia-Related Issues: No Anes. Related Issues
--- NOTE | 2024-02-05 10:31 | MHC.CM.PN ---
CM MET WITH PT AT BEDSIDE. PT LIVES ALONE WITH DOGS. 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 + HCP PCP DR. MARU SAPP AT [facility] [place] DP: HOME WITH NEW [facility] ([facility]) FOR DRAIN CARE MANAGEMENT. PT HAS OWN RIDE HOME. CM WILL CONTINUE TO FOLLOW FOR ANY CHANGE TO DC PLAN/NEEDS.
[2024-02-05] MEDS: oxyCODONE HCl Immed Release 5 MG TABLET PO (10:33)
[2024-02-05] MEDS: Ketorolac Tromethamine 15 MG/ML VIAL IVPUSH (13:43)
[2024-02-05 15:07] VITALS: BP 103/72; PULSE 70; RESP 18; TEMP 36.4; O2SAT 99
== END 2024-02-05 17:07 | disposition home or self-care (01) ==
LOC: HO.SSS 05:58 → HO.S3 10:21
PROVIDERS: Nurse Practitioner; PCP Internal Medicine; Visit Provider Surgery
PROC: (CPT 19301; principal; 2024-02-04 07:30)
PROC: (CPT 19301; 2024-02-04 07:30)
DX: C77.3 Secondary and unspecified malignant neoplasm of axilla and upper limb lymph nodes (principal); C50.212 Malignant neoplasm of upper-inner quadrant of left female breast; Z17.0 Estrogen receptor positive status [ER+]; Z92.21 Personal history of antineoplastic chemotherapy; Z79.899 Other long term (current) drug therapy; Z98.890 Other specified postprocedural states
CPT/HCPCS: 19301; 38525; 81025; 88307; 88342; C1889; J0131; J0461; J0690; J1100; J1170; J1885; J2250; J2270; J2405; J2704; J2795; J3010

== ENCOUNTER → 2024-02-04 05:57 | Outpatient (BNV) | payer OTHER, SELFPAY | PROVIDERS: PCP Internal Medicine; Visit Provider Surgery | DX: R59.0 Localized enlarged lymph nodes (principal); C50.912 Malignant neoplasm of unspecified site of left female breast; Z98.890 Other specified postprocedural states | CPT/HCPCS: 19302; 99024 ==

== ENCOUNTER 2024-02-13 10:03 | Outpatient (AMB) | payer OTHER, SELFPAY ==
--- NOTE | 2024-02-13 10:08 | MHC.OFFVIS ---
Vital Signs 02/13/24 10:18 Height 5 ft 8 in Weight 160 lb 2 oz BMI 24.3 BP 119/80 Blood Pressure Location Lt brachial Position Sitting Pulse 104 H Intake Visit Reasons: S/P Lt brst lump. w/seed, Lt axil. node dissection Intake Note: Patient is seen in office for post op assessment post left breast lumpectomy. 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 Sprayer Helper: Cement Sprayer Helper Present Accompanied by: Family/Other Allergies No Known Allergies Allergy (Verified 02/13/24 10:47) Medication List - Last Reconciled 02/13/24 by Elliott Clements MD cyanocobalamin (vitamin B-12) (Vitamin B-12) 1,000 mcg PO DAILY docusate sodium (Colace) 100 mg PO BID ferrous sulfate 325 mg PO DAILY loratadine (Claritin) 10 mg PO DAILY PRN multivitamin 1 tab PO DAILY oxycodone 5 mg PO Q4H PRN trazodone 50 mg PO BEDTIME vitamin B complex 1 tab PO DAILY HPI Comments Details: 43-year-old female patient presenting with a screening mammogram with follow-up images obtained on 07/02/2023 which revealed a large, irregular, spiculated hypoechoic lobulated mass within the left breast centrally, measuring 3.2 cm felt to be highly suspicious for malignancy, confirmed on left breast ultrasound. In addition a left axillary lymph node enlargement was identified measuring up to 3.9 cm, also felt to be suspicious (BI-RADS 5). She denied any previous history of breast problems or breast surgery. Family history is significant for her sister developing breast cancer at the age of 48. She is with 1 AB. She subsequently underwent ultrasound-guided core biopsy of both the breast mass and axillary lymph node of the left breast on 07/08/2023. Pathology revealed a left breast invasive ductal carcinoma, grade 2-3, ER/IA positive, HER2 Krissy negative, Ki-67 40% (high); lymph node left axilla positive for metastatic carcinoma consistent with breast primary; [id number] (stage IIB). She was evaluated by Dr. Allen and recommended dose dense AC followed by Taxol q.week x 12. She underwent genetic testing which was negative. She underwent left breast lumpectomy and right axillary node dissection on 02/04/2024. Pathology confirmed residual invasive ductal carcinoma, grade 2, proximally 28 mm less than 1 mm from the posterior margin. Local residual ductal carcinoma in-situ nuclear grade 2-3 with margins a 4 mm in the posterior margin. One intramammary lymph node was negative for metastatic carcinoma. Two of 4 axillary lymph nodes positive for metastatic ductal carcinoma (ypT2a [id number]). CONNER output has been minimal for the last several days. She has soreness in the axilla and under left arm. [facility] Medical History Axillary lymphadenopathy Port-A-Cath in place Invasive ductal carcinoma of breast, stage 2 Abnormal Pap smear of cervix Gallstone of bile duct with obstruction Surgical History History of lumpectomy of left breast (02/04/24) Status post left breast lumpectomy Hx of breast biopsy History of ERCP History of tonsillectomy History of loop electrical excision procedure (LEEP) Hx of cholecystectomy Family History Sister Breast cancer, Onset Age: 47 Father HTN (hypertension) Mother HTN (hypertension) Thyroid disorder Social History Household Members: Other Household Members Other:: self Housing: House Are you a primary health care marketing manager to a significant other at home: No Do you presently have visiting nurse or other home services: No Unable to assess alcohol history related to: Unknown Alcohol intake: unknown Comment: counts correct Patient Tobacco Use Status: Former Tobacco user Tobacco use type: Cigarette Cigarette Packs Per Day: 1 Years Smoked: 4 e-Cigarette/Vaping Use: Never Used Second Hand Smoke Exposure: No Advance Directives Date on File: 10/23/23 service: No Current occupational status: employed 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 ,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 Current occupational exposures/hazards: Yes Sexual orientation: Straight/Heterosexual Gender identity: Female Cognitive needs: No Hearing needs: No Vision needs: No Female Reproductive History Menstrual Age of Menarche: 14 Physical Exam Vital Signs: Last Vital Signs Pulse 104 H 02/13/24 10:18 BP 119/80 02/13/24 10:18 BMI result Body Mass Index 24.3 Const General: no acute distress Nutritional Appearance: well nourished Orientation/consciousness: patient oriented x3 Chest Other: Well-healed incisions in the left breast in a circumareolar location, and left axilla with no palpable seroma or hematoma. Dressings were removed and CONNER discontinued. Sterile dressings were applied to the CONNER site. Chest/axillae images: 1. 2. Skin Other: Warm, dry, no rash Neuro General: patient oriented x3 Extrem Other: No evidence of lymphedema Assessment & Plan Assessment & Plan (1) Invasive ductal carcinoma of breast, stage 2: Comment: had chemo-last tx 12/16/23 Code(s): C50.919 - Malignant neoplasm of unspecified site of unspecified female breast Category: Medical Qualifiers: Laterality: left Qualified Code(s): C50.912 - Malignant neoplasm of unspecified site of left female breast Plan 43-year-old female patient status post left breast lumpectomy and axillary node dissection for invasive ductal carcinoma. Her wounds are clean, dry and intact. Omid-Ma drain had minimal output therefore was removed today. She will follow-up with Dr. Allen later today to discuss next steps. She will follow-up in our office in approximately 1 month, sooner p.r.n.. Coding Level of Care Code Global (29737) Diagnoses Infiltrating ductal carcinoma of left breast, stage 2 C50.912 Laterality: left
[2024-02-13 10:18] VITALS: BP 119/80; PULSE 104; BMI 24.3
== END 2024-02-13 10:37 | disposition home or self-care (01) ==
PROVIDERS: PCP Internal Medicine; Visit Provider Surgery
DX: C50.912 Malignant neoplasm of unspecified site of left female breast (principal)
CPT/HCPCS: 99024

== ENCOUNTER → 2024-02-13 10:03 | Outpatient (BNVA) | payer OTHER, SELFPAY | PROVIDERS: PCP Internal Medicine; Visit Provider Surgery ==

== ENCOUNTER 2024-02-23 14:38 | Outpatient (AMB) | payer OTHER, SELFPAY ==
[2024-02-23 15:00] VITALS: BP 116/66; PULSE 115; RESP 13; O2SAT 98; BMI 23.7
--- NOTE | 2024-02-23 15:00 | A.OFFPC_ITS ---
Vital Signs 02/23/24 15:00 Height 5 ft 8 in Weight 156 lb BMI 23.7 BP 116/66 Blood Pressure Location Rt brachial Position Sitting Respiration 13 Pulse 115 H Pulse Source Pulse Oximeter Pulse Oximetry (%) 98 Oxygen Delivery Method Room Air Intake Visit Reasons: Establish Care Intake Note: Patient is here to establish care with primary care provider. Patient states she would like a referral to a therapist as she has a lot going on. [place] Opener Required: No Accompanied by: Self / Same As Patient Allergies No Known Allergies Allergy (Verified 02/27/24 10:45) Tobacco use date assessed: 11/27/23 Dental Screening Dental Screen Date: 11/27/23 HPI HPI Comments History of Present Illness Details 43-year-old lady with a past medical his tory of breast cancer presenting for follow up She has started to get anxious and depresses. Her boyfriend recently broke up with her. She has finished chemo treatments then he started to become distant and she thinks he may have been carrying on another relationship. She is frequently teary, having difficulty sleeping and feels lack of motivation. Just feeling very vulnerable and fragile after going through cancer treatment and now this Heme/Onc: Breast cancer diagnosed 2022. Following with Dr Allen. Patient is undergoing 3 more chemo treatments. Then will likely undergo lumpectomy with lymph node dissection. Hospitalized end of September for dehydration/sepsis - required ICU level care, pressors. No significant nausea recently. Due for colonoscopy ROS see HPI PHYSICAL EXAM: GENERAL: Alert and oriented x 3. NAD EYES: EOMI. Anicteric. HENT: Moist mucous membranes. No scleral icterus. No cervical lymphadenopathy. LUNGS: Clear to auscultation bilaterally. CARDIOVASCULAR: Regular rate and rhythm. No murmur. No JVD. ABDOMEN: Soft, non-tender +bs EXTREMITIES: No edema. Non-tender. SKIN: No rashes or lesions. Warm. NEUROLOGIC: No focal neurological deficits. CN II-XII grossly intact PSYCHIATRIC: teary [facility] Medical History Axillary lymphadenopathy Port-A-Cath in place Invasive ductal carcinoma of breast, stage 2 Abnormal Pap smear of cervix Gallstone of bile duct with obstruction Surgical History History of lumpectomy of left breast (02/04/24) Status post left breast lumpectomy Hx of breast biopsy History of ERCP History of tonsillectomy History of loop electrical excision procedure (LEEP) Hx of cholecystectomy Family History Sister Breast cancer, Onset Age: 47 Father HTN (hypertension) Mother HTN (hypertension) Thyroid disorder Social History Household Members: Other Household Members Other:: self Housing: House Are you a primary housekeeper child care to a significant other at home: No Do you presently have visiting nurse or other home services: No Unable to assess alcohol history related to: Unknown Alcohol intake: unknown Comment: counts correct Patient Tobacco Use Status: Former Tobacco user Tobacco use type: Cigarette Cigarette Packs Per Day: 1 Years Smoked: 4 e-Cigarette/Vaping Use: Never Used Second Hand Smoke Exposure: No Advance Directives Date on File: 10/23/23 service: No Current occupational status: employed 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 1. Little interest or pleasure in doing things: not at all 2. Feeling down, depressed, or hopeless: more than half the days 3. Trouble falling or staying asleep, or sleeping too much: more than half the days 4. Feeling tired or having little energy: more than half the days 5. Poor appetite or overeating: several days 6. Feeling bad about yourself - or that you are a failure or have let yourself or your family down: several days 7. Trouble concentrating on things, such as reading the newspaper or watching television: not at all 8. Moving or speaking so slowly that other people could have noticed. Or the opposite - being so fidgety or restless that you have been moving around a lot more than usual: not at all 9. Thoughts that you would be better off or of hurting yourself in some way: not at all Total score: 8 Depression Screening Interpretation: Positive Depression Screening Follow-up: New Medication prescribed Depression Screening Done: Yes 06275 - PHQ-9 Billing: Yes Source: Developed by Drs. Sudeep Soto, Pati King, Juan Calvo and colleagues, with an educational clint from [employer]. Thrive Questionnaire Date Thrive assessed: 02/05/24 I am a: Patient What is your living situation today?: I have a steady place to live Within the past 12 months, did the food you bought not last and you didn't have the money to get more?: Never true Within the past 12 months, did you worry whether your food would run out before you got money to buy more?: Never true Do you have trouble paying for medicines?: No Do you have trouble getting transportation to medical appointments?: No Do you have trouble paying your heating and electricity bill?: No Do you have trouble taking care of your child, family member or friend?: No Do you have trouble with day-to-day activities such as bathing, preparing meals, shopping, managing finances, etc.?: No Are you currently unemployed and looking for a job?: No Are you interested in more education?: No Please select the resources that you would like help with: None Currently or been in a relationship where the following occur: No concerns reported THRIVE Score: 0 AUDIT C Alcohol Use Questionnaire (AUDIT-C) 1. How often do you have a drink containing alcohol?: Monthly or less 2. How many drinks containing alcohol do you have on a typical day when you are drinking?: 1 or 2 3. How often do you have six or more drinks on one occasion?: Never Total Score: 1 RICARDA-7 AMB Questionnaire RICARDA-7 Date RICARDA - 7 assessed: 02/23/24 Feeling nervous, anxious, or on edge: 1 = Several days Not being able to stop or control worryin = More than half the days Worrying too much about different things: 2 = More than half the days Trouble relaxin = More than half the days Being so restless that it is hard to sit still: 0 = Not at all Becoming easily annoyed or irritable: 0 = Not at all Feeling afraid as if something awful might happen: 0 = Not at all Total RICARDA-7 score (0-4 normal; 5-9 mild; 10-14 moderate; 15-21 severe): 7 Source: Developed by Drs. Sudeep Soto, Pati King, Juan Calvo and colleagues, with an educational clint from [employer]. RICARDA-7 Assessment Billing RICARDA-7 Assessment Tool: RICARDA-7 Assessment 19930 Physical exam (Primary Care) Vital Signs: Last Vital Signs Pulse 115 H 02/23/24 15:00 Resp 13 02/23/24 15:00 BP 116/66 02/23/24 15:00 Pulse Ox 98 02/23/24 15:00 Oxygen Delivery Method Room Air 02/23/24 15:00 BMI result Body Mass Index 23.7 Tobacco/Smoking Status: Tobacco use Status Tobacco use date assessed 11/27/23 02/23/24 15:09 Patient Tobacco Use Status Former Tobacco user 02/23/24 15:09 Tobacco use type Cigarette 02/23/24 15:09 e-Cigarette/Vaping Use Never Used 02/23/24 15:09 PHQ-9: PHQ-9 Score PHQ-9: Total score 8 03/05/24 14:35 Depression Screening Interpretation: Positive Depression Screening Follow-up: New Medication prescribed Thrive Assessment: Date of Thrive Assessment Date Thrive assessed 02/05/24 02/23/24 15:09 Currently or been in a relationship where the following occur: No concerns reported Assessment and Plan Assessment & Plan (1) Situational depression: Code(s): F43.21 - Adjustment disorder with depressed mood Plan: Discussed treatment options Will pursue pharmacologic treatments and therapy Start sertraline 12.5 x one week then increase to 50mg daily. Start trazodone to aid sleep. SE discussed. Patient can use lorazepam sparingly for overwhelming anxiety, insomnia Referral to psych placed (2) Anxiety: Code(s): F41.9 - Anxiety disorder, unspecified Orders: Referrals Psychology Referral C50.912 - Malignant neoplasm of unspecified site of left female breast, F43.21 - Adjustment disorder with depressed mood Medications: New lorazepam 0.5 mg PO BID PRN 60 tabs 0RF anxiety 30 days sertraline Take 1/2 tab oral once daily for one week then take 1 tab oral once daily 25 mg PO DAILY 90 tabs 3RF Changed From trazodone 50 mg PO BEDTIME 30 tabs 3RF To trazodone 100 mg (2 x 50 mg) PO BEDTIME 180 tabs 3RF 90 days Coding Level of Care Code Est Pt Level 4 (46268) Diagnoses Situational depression F43.21 Anxiety F41.9 Additional Codes RICARDA-7 Assessment Billing - RICARDA-7 Assessment Tool: RICARDA-7 Assessment 25450 ([id number])
== END 2024-02-23 15:37 | disposition home or self-care (01) ==
PROVIDERS: PCP Internal Medicine; Visit Provider Internal Medicine
DX: F43.21 Adjustment disorder with depressed mood (principal); F41.9 Anxiety disorder, unspecified
CPT/HCPCS: 96127; 99214

== ENCOUNTER 2024-03-10 13:19 | Day surgery (SDC) | payer OTHER, SELFPAY ==
--- NOTE | ~2024-03-10 | IR_ITS ---
Port removal History: Patient no longer requires access for chemotherapy. Referring physicians request removal. Procedure: The risks and benefits were discussed the patient and the consent was signed. The right anterior chest was prepped and draped in routine sterile fashion. The skin was anesthetized with 1% lidocaine. An incision was made over the previous scar. Utilizing blunt dissection, the port was removed from the chest with the catheter intact. The pocket was irrigated with 50 mL of normal saline. The port pocket was closed with interrupted 3-0 Vicryl sutures in the deep layer and surgical glue to close the skin. The patient tolerated the procedure well. A sterile dressing was applied. Total sedation time 60 minutes Medications: 1 mg Versed, 50 mcg fentanyl, 10 mL 1% lidocaine. This procedure was performed by Angel Puentes PA-C, and supervised by Dr. Sims. IR/IR cvc remove tunnel w prt/sonography technician Impression: Right port removal.
[2024-03-10 13:33] VITALS: BMI 23.3
--- NOTE | 2024-03-10 13:53 | MHC.SHP ---
Pre-Procedural Eval Section A - 24 Hr Update-Section A only Date of Service: 03/10/24 Section B - Complete if H&P > 30 days Chief Complaint: MALIGNANT NEOPLASM,NO LONGER NEEDED Details of Present Illness: 43 y/o female with breast cancer who has completed chemotherapy. She presents for port removal. Relevant Family History (Specify if Yes): No Relevant Social History: None Present Medications: see Short Stay Collaborative assessment Medical History: Significant History History of Previous Operations: Relevant previous surgery/procedure and date(s) Allergies: Allergies Allergy/AdvReac Type Severity Reaction Status Date / Time No Known Allergies Allergy Verified 02/27/24 10:45 Review of Systems Sugical H&P ROS: Negative: Cardiovascular and Respiratory and Yes, Specify: Psychiatric (anxiety) Exam Surgical H&P Exam: Normal: Heart, Normal: Lungs, Normal: Skin and Normal: Neurological Plan 43 y/o female with s/p right port for breast cancer -Port removal -Patient states she has not had vaginal intercourse in >6 months. Will defer Urine test Time Spent With Patient Time: Total time managing care of this patient today ____ minutes.
[2024-03-10 13:59] VITALS: BP 139/84; PULSE 86; RESP 16; TEMP 36.4; O2SAT 99
== END 2024-03-10 15:50 | disposition home or self-care (01) ==
PROVIDERS: Student in an Organized Health Care Education/Training Program; PCP Internal Medicine; Visit Provider Internal Medicine
PROC: (CPT 36590; principal; 2024-03-10 13:00)
DX: Z45.2 Encounter for adjustment and management of vascular access device (principal); C50.912 Malignant neoplasm of unspecified site of left female breast; Z80.3 Family history of malignant neoplasm of breast; Z79.899 Other long term (current) drug therapy; Z87.891 Personal history of nicotine dependence
CPT/HCPCS: 36590; 99152; J2250; J2310; J3010

== ENCOUNTER → 2024-03-10 15:13 | Outpatient (BNV) | payer OTHER, SELFPAY | PROVIDERS: PCP Internal Medicine; Visit Provider Physician Assistant Surgical | DX: C50.919 Malignant neoplasm of unspecified site of unspecified female breast (principal); Z45.2 Encounter for adjustment and management of vascular access device | CPT/HCPCS: 36590 ==

== ENCOUNTER 2024-03-16 09:53 | Outpatient (AMB) | payer OTHER, SELFPAY ==
--- NOTE | 2024-03-16 09:56 | MHC.OFFVIS ---
Vital Signs 03/16/24 10:04 Height 5 ft 8 in Weight 150 lb BMI 22.8 BP 109/77 Blood Pressure Location Lt brachial Position Sitting Pulse 97 Intake Visit Reasons: 1 mth f/u S/P Lt brst lump. w/seed, Lt axil. Intake Note: Patient is seen in office for one month follow up visit, post left breast lumpectomy. Pt c/o: tender left breast, doing the hormone therapy, will start radiation after Day for 30 days Head Refrigerating Engineer Required: No Nutrition Manager: Nutrition Manager Present Accompanied by: Family/Other Allergies No Known Allergies Allergy (Verified 03/16/24 10:02) Medication List - Last Reconciled 03/16/24 by Elliott Clements MD ferrous sulfate 325 mg PO DAILY lorazepam 0.5 mg PO BID PRN 30 days multivitamin 1 tab PO DAILY sertraline 25 mg PO DAILY trazodone 100 mg (2 x 50 mg) PO BEDTIME 90 days HPI Comments Details: 43-year-old female patient returning for a breast cancer follow-up examination. She was found to have a large irregular spiculated hypoechoic lobulated mass in the left breast on mammogram obtained 07/02/2023. The mass measured 3.2 cm and was highly suspicious for malignancy. She underwent ultrasound-guided core biopsy of a left breast mass and axillary lymph node on 07/08/2023. Pathology confirmed a left breast invasive ductal carcinoma, grade 2-3, ER/ SC positive, HER2 Krissy negative, Ki-67 40% ( high); lymph node left axilla was positive for metastatic carcinoma consistent with breast primary [id number] (stage IIB). She was evaluated by Dr. Allen and started on dose dense AC followed by Taxol q.week times 12. Genetic testing was negative. Left breast lumpectomy with right axillary node dissection was performed on 02/04/2024. Pathology confirmed residual invasive ductal carcinoma grade 2, 28 mm with less than 1 mm posterior margin. 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 One intramammary lymph node was negative for metastatic carcinoma. Two of 8 axillary lymph nodes were positive for metastatic ductal carcinoma ([id number] [id number]). She feels much improved with better mobility of her left arm and less pain with motion. She will be starting radiation therapy soon after which she will be starting Verzenio and aromatase inhibitor. She received a injection of Lupron.. Family history is significant for her sister developing breast cancer at the age of 48. She is with 1 AB. PFSH Medical History Axillary lymphadenopathy Port-A-Cath in place Invasive ductal carcinoma of breast, stage 2 Abnormal Pap smear of cervix Gallstone of bile duct with obstruction Surgical History History of lumpectomy of left breast (02/04/24) Status post left breast lumpectomy Hx of breast biopsy History of ERCP History of tonsillectomy History of loop electrical excision procedure (LEEP) Hx of cholecystectomy Family History Sister Breast cancer, Onset Age: 47 Father HTN (hypertension) Mother HTN (hypertension) Thyroid disorder Social History Household Members: Other Household Members Other:: self Housing: House Are you a primary health care facility administrator to a significant other at home: No Do you presently have visiting nurse or other home services: No Unable to assess alcohol history related to: Unknown Alcohol intake: unknown Comment: counts correct Patient Tobacco Use Status: Former Tobacco user Tobacco use type: Cigarette Cigarette Packs Per Day: 1 Years Smoked: 4 e-Cigarette/Vaping Use: Never Used Second Hand Smoke Exposure: No Advance Directives Date on File: 10/23/23 service: No Current occupational status: employed 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 ,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 Current occupational exposures/hazards: Yes Sexual orientation: Straight/Heterosexual Gender identity: Female Cognitive needs: No Hearing needs: No Vision needs: No Female Reproductive History Menstrual Age of Menarche: 14 Review of Systems Const All systems reviewed & are unremarkable except as noted in HPI and below Denies chills, Denies fever(s), Denies headache(s), Denies poor appetite and Denies weakness ENT Denies headache(s) Card Denies chest pain, Denies irregular heart rhythm, Denies palpitations and Denies dyspnea Resp Denies cough, Denies excessive phlegm production and Denies dyspnea GI Denies abdominal pain, Denies bloating, Denies change in bowel habits, Denies constipation, Denies heartburn, Denies diarrhea, Denies nausea and Denies vomiting Denies urinary frequency and Denies nipple discharge Musc Denies back pain, Denies muscle weakness and Denies numbness Skin/Breast Details: Chronically inverted nipples bilaterally Denies breast swelling, Denies breast skin changes, Denies breast pain, Denies changing lesions, Denies nipple discharge and Denies unusual bruising Neuro Denies headache(s), Denies numbness, Denies paresthesias and Denies weakness Psych Denies anxiety and Denies depression Endo Denies palpitations Delgado/Lymph Denies lymphadenopathy Physical Exam Vital Signs: Last Vital Signs Pulse 97 03/16/24 10:04 BP 109/77 03/16/24 10:04 BMI result Body Mass Index 22.8 Const General: no acute distress Nutritional Appearance: well nourished Orientation/consciousness: patient oriented x3 Chest Other: Well-healed incisions in the left breast in a circumareolar location, and left axilla with no palpable seroma or hematoma. Tissue was soft with no palpable mass, hematoma or seroma. Skin Other: Warm, dry, no rash Neuro Other: Mobility Assessment: 1. 3 meter assessment time (seconds) 5 2. Gait observations: Normal balance and gait General: patient oriented x3 Extrem Other: No evidence of lymphedema Assessment & Plan Assessment & Plan (1) Invasive ductal carcinoma of breast, stage 2: Comment: had chemo-last tx 12/16/23 Code(s): C50.919 - Malignant neoplasm of unspecified site of unspecified female breast Category: Medical Qualifiers: Laterality: left Qualified Code(s): C50.912 - Malignant neoplasm of unspecified site of left female breast Plan 43-year-old female patient status post left breast lumpectomy and axillary node dissection for invasive ductal carcinoma. Her wounds are clean, dry and intact. She will be starting radiation therapy soon and then we will continue with aromatase inhibitor and Verzenio. I recommended follow-up examination in 3 months. She is welcome to call sooner for any new concerns. Coding Level of Care Code Global (68120) Diagnoses Infiltrating ductal carcinoma of left breast, stage 2 C50.912 Laterality: left
[2024-03-16 10:04] VITALS: BP 109/77; PULSE 97; BMI 22.8
== END 2024-03-16 10:16 | disposition home or self-care (01) ==
PROVIDERS: PCP Internal Medicine; Visit Provider Surgery
DX: C50.912 Malignant neoplasm of unspecified site of left female breast (principal)
CPT/HCPCS: 99024

== ENCOUNTER → 2024-03-16 09:53 | Outpatient (BNVA) | payer OTHER, SELFPAY | PROVIDERS: PCP Internal Medicine; Visit Provider Surgery ==

== ENCOUNTER 2024-04-26 10:24 | Outpatient (AMB) | payer OTHER, SELFPAY ==
--- NOTE | 2024-04-26 10:29 | A.OFFPC_ITS ---
Vital Signs 04/26/24 10:30 Height 5 ft 8 in Weight 150 lb 2 oz BMI 22.8 BP 122/76 Blood Pressure Location Rt brachial Position Sitting Pulse 84 Pulse Source Pulse Oximeter Pulse Oximetry (%) 98 Oxygen Delivery Method Room Air Intake Visit Reasons: PE Allergies No Known Allergies Allergy (Verified 04/26/24 10:32) Tobacco use date assessed: 04/26/24 Dental Screening Dental Screen Date: 04/26/24 Did you have a dental visit in the last 12 months?: Yes Did you have a dental problem in the last 6 months where you did not have access to dental care?: No Was dental information given to patient?: Patient has dentist HPI HPI Comments History of Present Illness Details 43-year-old female with a past medical h istory of breast cancer, depression presenting for follow up Anxiety/depression: Doing much better. Continues with therapy at [facility] Stable on sertraline, trazodone, lorazepam. She has started to get anxious and depressed. Her boyfriend recently broke up with her. She has finished chemo treatments then he started to become distant and she thinks he may have been carrying on another relationship. She is frequently teary, having difficulty sleeping and feels lack of motivation. Just feeling very vulnerable and fragile after going through cancer treatment and now this Heme/Onc: Breast cancer diagnosed 2022. Following with Dr Allen. completion of 4 cycles of AC. She underwent left breast lumpectomy and axillary dissection on 02/04/2024. Pathology revealed residual invasive carcinoma, grade 2. She is currently on week 3/6 of radiation therapy. She was started on Lupron on 02/13/2024. Following radiation therapy she will be started on aromatase inhibitor along with CDK4/6 inhibitor abemaciclib 150 mg b.i.d. for 2 years based on node positive high-risk hormone receptor positive breast cancer Due for colonoscopy ROS see HPI PHYSICAL EXAM: GENERAL: Alert and oriented x 3. NAD EYES: EOMI. Anicteric. HENT: Moist mucous membranes. No scleral icterus. No cervical lymphadenopathy. LUNGS: Clear to auscultation bilaterally. CARDIOVASCULAR: Regular rate and rhythm. No murmur. No JVD. ABDOMEN: Soft, non-tender +bs EXTREMITIES: No edema. Non-tender. SKIN: No rashes or lesions. Warm. NEUROLOGIC: No focal neurological deficits. CN II-XII grossly intact PSYCHIATRIC: Cooperative. Appropriate mood and affect [facility] Medical History Axillary lymphadenopathy Port-A-Cath in place Invasive ductal carcinoma of breast, stage 2 Abnormal Pap smear of cervix Gallstone of bile duct with obstruction Surgical History History of lumpectomy of left breast (02/04/24) Status post left breast lumpectomy Hx of breast biopsy History of ERCP History of tonsillectomy History of loop electrical excision procedure (LEEP) Hx of cholecystectomy Family History Sister Breast cancer, Onset Age: 47 Father HTN (hypertension) Mother HTN (hypertension) Thyroid disorder Social History Household Members: Other Household Members Other:: self Housing: House Are you a primary critical care paramedic to a significant other at home: No Do you presently have visiting nurse or other home services: No Unable to assess alcohol history related to: Unknown Alcohol intake: unknown Comment: counts correct Patient Tobacco Use Status: Former Tobacco user Tobacco use type: Cigarette Cigarette Packs Per Day: 1 Years Smoked: 4 e-Cigarette/Vaping Use: Never Used Second Hand Smoke Exposure: No Advance Directives Date on File: 10/23/23 service: No Current occupational status: employed 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 1. Little interest or pleasure in doing things: not at all 2. Feeling down, depressed, or hopeless: more than half the days 3. Trouble falling or staying asleep, or sleeping too much: more than half the days 4. Feeling tired or having little energy: more than half the days 5. Poor appetite or overeating: several days 6. Feeling bad about yourself - or that you are a failure or have let yourself or your family down: several days 7. Trouble concentrating on things, such as reading the newspaper or watching television: not at all 8. Moving or speaking so slowly that other people could have noticed. Or the opposite - being so fidgety or restless that you have been moving around a lot more than usual: not at all 9. Thoughts that you would be better off or of hurting yourself in some way: not at all Total score: 8 Depression Screening Interpretation: Positive Depression Screening Follow-up: New Medication prescribed Depression Screening Done: Yes 12143 - PHQ-9 Billing: Yes Source: Developed by Drs. Sudeep Soto, Pati King, Juan Calvo and colleagues, with an educational clint from [employer]. Thrive Questionnaire Date Thrive assessed: 04/26/24 I am a: Patient What is your living situation today?: I have a steady place to live Within the past 12 months, did the food you bought not last and you didn't have the money to get more?: Never true Within the past 12 months, did you worry whether your food would run out before you got money to buy more?: Never true Do you have trouble paying for medicines?: No Do you have trouble getting transportation to medical appointments?: No Do you have trouble paying your heating and electricity bill?: No Do you have trouble taking care of your child, family member or friend?: No Do you have trouble with day-to-day activities such as bathing, preparing meals, shopping, managing finances, etc.?: No Are you currently unemployed and looking for a job?: No Are you interested in more education?: No Please select the resources that you would like help with: None Currently or been in a relationship where the following occur: No concerns reported THRIVE Score: 0 AUDIT C Alcohol Use Questionnaire (AUDIT-C) 1. How often do you have a drink containing alcohol?: Monthly or less 2. How many drinks containing alcohol do you have on a typical day when you are drinking?: 1 or 2 3. How often do you have six or more drinks on one occasion?: Never Total Score: 1 RICARDA-7 AMB Questionnaire RICARDA-7 Date RICARDA - 7 assessed: 04/05/24 Feeling nervous, anxious, or on edge: 1 = Several days Not being able to stop or control worryin = More than half the days Worrying too much about different things: 2 = More than half the days Trouble relaxin = More than half the days Being so restless that it is hard to sit still: 0 = Not at all Becoming easily annoyed or irritable: 0 = Not at all Feeling afraid as if something awful might happen: 0 = Not at all Total RICARDA-7 score (0-4 normal; 5-9 mild; 10-14 moderate; 15-21 severe): 7 Source: Developed by Drs. Sudeep Soto, Pati King, Juan Calvo and colleagues, with an educational clint from [employer]. RICARDA-7 Assessment Billing RICARDA-7 Assessment Tool: RICARDA-7 Assessment 15838 Physical exam (Primary Care) Vital Signs: Last Vital Signs Pulse 84 04/26/24 10:30 BP 122/76 04/26/24 10:30 Pulse Ox 98 04/26/24 10:30 Oxygen Delivery Method Room Air 04/26/24 10:30 BMI result Body Mass Index 22.8 Tobacco/Smoking Status: Tobacco use Status Tobacco use date assessed 04/26/24 04/26/24 10:34 Patient Tobacco Use Status Former Tobacco user 04/26/24 10:34 Tobacco use type Cigarette 04/26/24 10:34 e-Cigarette/Vaping Use Never Used 04/26/24 10:34 PHQ-9: PHQ-9 Score PHQ-9: Total score 8 04/26/24 10:34 Depression Screening Interpretation: Positive Depression Screening Follow-up: New Medication prescribed Thrive Assessment: Date of Thrive Assessment Date Thrive assessed 04/26/24 04/26/24 10:34 Currently or been in a relationship where the following occur: No concerns reported Assessment and Plan Assessment & Plan (1) Physical exam: Code(s): Z00.00 - Encounter for general adult medical examination without abnormal findings Plan: Preventive measures for age reviewed Reordered colonoscopy referral (2) Situational depression: Code(s): F43.21 - Adjustment disorder with depressed mood Plan: Doing much better with therapy, medication and time (3) Invasive ductal carcinoma of breast, stage 2: Code(s): C50.919 - Malignant neoplasm of unspecified site of unspecified female breast Qualifiers: Laterality: left Qualified Code(s): C50.912 - Malignant neoplasm of unspecified site of left female breast Plan: s/p chemo, surgery and in radiation Continue heme/onc follow up Orders: Orders Hemoglobin A1c Today R73.09 - Other abnormal glucose, Z13.220 - Encounter for s creening for lipoid disorders Lipid Panel Today R73.09 - Other abnormal glucose, Z13.220 - Encounter for screening for lipoid disorders TSH reflex Free T4 Today R73.09 - Other abnormal glucose, Z13.220 - Encounter for screening for lipoid disorders Referrals Open Access Screening Colonoscopy Referral Z12.11 - Encounter for screening for malignant neoplasm of colon, Z12.12 - Encounter for screening for malignant neoplasm of rectum Coding Level of Care Code Est Pt Prev Care 40-64y(39573) Diagnoses Physical exam Z00.00 Situational depression F43.21 Infiltrating ductal carcinoma of left breast, stage 2 C50.912 Laterality: left Additional Codes RICARDA-7 Assessment Billing - RICARDA-7 Assessment Tool: RICARDA-7 Assessment [id number] ([id number])
[2024-04-26 10:30] VITALS: BP 122/76; PULSE 84; O2SAT 98; BMI 22.8
== END 2024-04-26 10:58 | disposition home or self-care (01) ==
PROVIDERS: PCP Internal Medicine; Visit Provider Internal Medicine
DX: Z00.00 Encounter for general adult medical examination without abnormal findings (principal); F43.21 Adjustment disorder with depressed mood; C50.912 Malignant neoplasm of unspecified site of left female breast

== ENCOUNTER → 2024-04-26 10:24 | Outpatient (BNVA) | payer OTHER, SELFPAY | PROVIDERS: PCP Internal Medicine; Visit Provider Internal Medicine | DX: Z00.00 Encounter for general adult medical examination without abnormal findings (principal); F43.21 Adjustment disorder with depressed mood; C50.912 Malignant neoplasm of unspecified site of left female breast; Z92.21 Personal history of antineoplastic chemotherapy; Z92.3 Personal history of irradiation | CPT/HCPCS: 96127 ==

== ENCOUNTER 2024-05-13 13:20 | Outpatient (AMB) | payer OTHER, SELFPAY ==
[2024-05-13 13:26] VITALS: BP 114/70; BMI 22.5
--- NOTE | 2024-05-13 13:26 | MHC.OFFVIS ---
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 Doing well with no concerns. She tries to eat healthy and stays active with exercise. No menses since chemotherapy has suppression Lupron medication administered through [facility]. She denies vaginal itching and irritation. STI screening offered; she accepts. Denies family history of breast, ovarian or colon cancer. Last pap smear 2021, negative. History of LEEP in 2008. Pap due in 2024. Recent breast cancer diagnosis under treatment. [facility] Medical History Axillary lymphadenopathy Port-A-Cath in place Invasive ductal carcinoma of breast, stage 2 Abnormal Pap smear of cervix Gallstone of bile duct with obstruction Surgical History History of lumpectomy of left breast (02/04/24) Status post left breast lumpectomy Hx of breast biopsy History of ERCP History of tonsillectomy History of loop electrical excision procedure (LEEP) Hx of cholecystectomy Family History Sister Breast cancer, Onset Age: 47 Father HTN (hypertension) Mother HTN (hypertension) Thyroid disorder Social History Household Members: Other Household Members Other:: self Housing: House Are you a primary patient care secretary to a significant other at home: No Do you presently have visiting nurse or other home services: No Unable to assess alcohol history related to: Unknown Alcohol intake: unknown Comment: counts correct Patient Tobacco Use Status: Former Tobacco user Tobacco use type: Cigarette Cigarette Packs Per Day: 1 Years Smoked: 4 e-Cigarette/Vaping Use: Never Used Second Hand Smoke Exposure: No Advance Directives Date on File: 10/23/23 service: No Current occupational status: employed 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 ,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 Current occupational exposures/hazards: Yes Sexual orientation: Straight/Heterosexual Gender identity: Female Cognitive needs: No Hearing needs: No Vision needs: No Female Reproductive History Menstrual Age of Menarche: 14 Total pregnancies: 3 Full term: 2 Number of Living Children: 2 Ab induced: 1 Date of last pap smear: 02/12/22 (neg pap and hpv) History of abnormal pap smear: Yes (10/03 asc-h 11/03 colpo cin2 12/03 leep deb 2) Date of Mammogram: 02/02/24 History of abnormal mammogram: Yes Physical Exam Vital Signs: BMI result Body Mass Index 22.5 Chest Other: Status post radiation and postsurgical scarring left breast Assessment & Plan Assessment & Plan (1) Encounter for well woman exam with routine gynecological exam: Code(s): Z01.419 - Encounter for gynecological examination (general) (routine) without abnormal findings Category: Medical Plan Discussed: Current recommendations for pap smears per ASCCP guidelines. Follow up with specialist for breast care. Maintain a healthy lifestyle including a well balanced diet and routine exercise. Patient verbalizes understanding and agrees to the plan of care. She was given opportunity to ask questions and all questions were answered to the best of my ability. RTO in one year for annual marketing information analyst examination. This note is constructed using voice recognition software. While every effort has been made to ensure accuracy, continuous process tanner rotary drum errors may have been included. Orders: Orders Bacterial Vaginosis Panel Today Z20.2 - Contact with and (suspected) exposure to infections with a predominantly sexual mode of transmission CT NG by PCR Today Z20.2 - Contact with and (suspected) exposure to infections with a predominantly sexual mode of transmission Coding Level of Care Code Est Pt Prev Care 40-64y(06294) Diagnoses Encounter for well woman exam with routine gynecological exam Z01.419
== END 2024-05-13 14:04 | disposition home or self-care (01) ==
PROVIDERS: PCP Internal Medicine; Visit Provider Advanced Practice Midwife
DX: Z01.419 Encounter for gynecological examination (general) (routine) without abnormal findings (principal)
CPT/HCPCS: 99396

== ENCOUNTER 2024-05-13 13:57 | Outpatient (REF) | payer OTHER, SELFPAY | END 2024-05-13 13:58 | disposition home or self-care (01) | LOC: HO.LNP 13:57 | PROVIDERS: Visit Provider Advanced Practice Midwife | DX: Z13.89 Encounter for screening for other disorder (principal) ==

== ENCOUNTER 2024-07-01 14:59 | Outpatient (AMB) | payer OTHER, SELFPAY ==
--- NOTE | 2024-07-01 15:09 | MHC.OFFVIS ---
Vital Signs 07/01/24 15:17 Height 5 ft 8 in Weight 155 lb 2 oz BMI 23.6 BP 153/89 H Blood Pressure Location Lt brachial Position Sitting Pulse 74 Intake Visit Reasons: 3 month follow up, breast exam Intake Note: Patient is seen in office for 3 months follow up visit, post left breast lumpectomy. Pt c/o: denies any concerns regarding the breast, is taking Letrozole side effects joint aches worse in cold weather and hot flashes mm:02/02/24 Screen And Cyclone Repairer Required: No Accompanied by: Self / Same As Patient Allergies No Known Allergies Allergy (Verified 07/01/24 15:17) HPI Comments Details: 43-year-old female patient returning for a breast cancer follow-up examination. She was found to have a large irregular spiculated hypoechoic lobulated mass in the left breast on mammogram obtained 07/02/2023. The mass measured 3.2 cm and was highly suspicious for malignancy. She underwent ultrasound-guided core biopsy of a left breast mass and axillary lymph node on 07/08/2023. Pathology confirmed a left breast invasive ductal carcinoma, grade 2-3, ER/ RI positive, HER2 Krissy negative, Ki-67 40% ( high); lymph node left axilla was positive for metastatic carcinoma consistent with breast primary [id number] (stage IIB). She was evaluated by Dr. Allen and started on dose dense AC followed by Taxol q.week times 12. Genetic testing was negative. Left breast lumpectomy with right axillary node dissection was performed on 02/04/2024. Pathology confirmed residual invasive ductal carcinoma grade 2, 28 mm with less than 1 mm posterior margin. 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 One intramammary lymph node was negative for metastatic carcinoma. Two of 8 axillary lymph nodes were positive for metastatic ductal carcinoma (ypT2a [id number]). She feels much improved with better mobility of her left arm and less pain with motion. She completed radiation therapy and tolerated this well. She is now on letrozole 0.5 mg daily and will discuss further therapy with Dr. Allen next Friday. Family history is significant for her sister developing breast cancer at the age of 48. She is with 1 AB. PFSH Medical History Axillary lymphadenopathy Port-A-Cath in place Invasive ductal carcinoma of breast, stage 2 Abnormal Pap smear of cervix Gallstone of bile duct with obstruction Surgical History History of lumpectomy of left breast (02/04/24) Status post left breast lumpectomy Hx of breast biopsy History of ERCP History of tonsillectomy History of loop electrical excision procedure (LEEP) Hx of cholecystectomy Family History Sister Breast cancer, Onset Age: 47 Father HTN (hypertension) Mother HTN (hypertension) Thyroid disorder Social History Household Members: Other Household Members Other:: self Housing: House Are you a primary health care legal assistant to a significant other at home: No Do you presently have visiting nurse or other home services: No Unable to assess alcohol history related to: Unknown Alcohol intake: unknown Comment: counts correct Patient Tobacco Use Status: Former Tobacco user Tobacco use type: Cigarette Cigarette Packs Per Day: 1 Years Smoked: 4 e-Cigarette/Vaping Use: Never Used Second Hand Smoke Exposure: No Advance Directives Date on File: 10/23/23 service: No Current occupational status: employed 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 Left breast: Well-healed incisions in the left breast in a circumareolar location, with no palpable mass or new skin change, nipple discharge, or enlarged lymph nodes. Minimal radiation change noted in skin. Chest/axillae images: 1. Skin Other: Warm, dry, no rash Neuro Other: Mobility Assessment: 1. 3 meter assessment time (seconds) 5 2. Gait observations: Normal balance and gait General: patient oriented x3 Extrem Other: No evidence of lymphedema Assessment & Plan Assessment & Plan (1) Invasive ductal carcinoma of breast, stage 2: Code(s): C50.919 - Malignant neoplasm of unspecified site of unspecified female breast Category: Medical Qualifiers: Laterality: left Qualified Code(s): C50.912 - Malignant neoplasm of unspecified site of left female breast Plan 43-year-old female patient status post left breast lumpectomy and axillary node dissection for invasive ductal carcinoma. She has now completed radiation therapy and tolerated this well. Examination today reveals no suspicious findings in either breast. She will probably delay her annual mammogram several months to allow resolution of the radiation change. I recommended follow-up examination in 6 months, sooner p.r.n.. She will continue her follow-up with Dr. Allen. Coding Level of Care Code Est Pt Level 3 (81450) Diagnoses Infiltrating ductal carcinoma of left breast, stage 2 C50.912 Laterality: left
[2024-07-01 15:17] VITALS: BP 153/89; PULSE 74; BMI 23.6
== END 2024-07-01 15:26 | disposition home or self-care (01) ==
PROVIDERS: PCP Internal Medicine; Visit Provider Surgery
DX: C50.912 Malignant neoplasm of unspecified site of left female breast (principal)
CPT/HCPCS: 99213

== ENCOUNTER → 2024-07-19 14:55 | Outpatient (BNV) | payer OTHER, SELFPAY | PROVIDERS: PCP Internal Medicine; Visit Provider Internal Medicine Cardiovascular Disease | DX: R07.9 Chest pain, unspecified (principal) | CPT/HCPCS: 93010 ==

== ENCOUNTER 2024-09-27 14:44 | Outpatient (REF) | payer OTHER, SELFPAY | END 2024-09-27 14:45 | disposition home or self-care (01) | LOC: HO.MAMMO 14:44 | PROVIDERS: PCP Internal Medicine; Visit Provider Internal Medicine | DX: Z13.89 Encounter for screening for other disorder (principal) ==

== ENCOUNTER 2024-10-14 14:23 | Outpatient (REF) | payer OTHER, SELFPAY ==
--- NOTE | ~2024-10-14 | MM_ITS ---
EXAMINATION: MM DIAGNOSTIC DIGITAL BREAST TOMOSYNTHESIS, BILATERAL CLINICAL INFORMATION: Left breast cancer in 2023 status post lumpectomy and conservation therapy. COMPARISON: Mammography: Comparison is made with relevant prior exams. TECHNIQUE: Digital breast mammography with tomosynthesis is performed in both the craniocaudal and mediolateral oblique views along with computer-aided detection (CAD). FINDINGS: The breasts are heterogeneously dense, which may obscure small masses (ACR BI-RADS breast composition Category c). Left: Status post left lumpectomy changes and conservation therapy changes. There is architectural distortion and an area of probable postoperative seroma measuring 2 to 3 cm in the postoperative bed. No suspicious calcifications or other abnormal findings. Right: Asymmetry lateral right breast posterior depth on CC view stable dating back to 2022. No suspicious calcifications masses or other abnormal findings. Results are provided to the patient at time of visit by the technologist. MM/MM tomosynthesis diagnostic BI IMPRESSION: Status post left lumpectomy. Benign. ASSESSMENT: BI-RADS BI-RADS 2 - Benign Findings RECOMMENDATION: 1 year F/U This patient's information was entered into a reminder system with a target due date for their next mammogram. Electronically signed by: Otilia Urena DO 10/14/2024 03:17 PM EDT
== END 2024-10-14 14:24 | disposition home or self-care (01) ==
LOC: HO.MAMMO 14:23
PROVIDERS: PCP Internal Medicine; Visit Provider Surgery
DX: Z85.3 Personal history of malignant neoplasm of breast (principal)
CPT/HCPCS: 77062; 77066

== ENCOUNTER → 2024-10-14 14:30 | Outpatient (BNV) | payer OTHER, SELFPAY | PROVIDERS: PCP Internal Medicine; Visit Provider Internal Medicine | DX: C50.912 Malignant neoplasm of unspecified site of left female breast (principal) | CPT/HCPCS: 77062; 77066 ==

== ENCOUNTER 2024-10-25 15:36 | Outpatient (AMB) | payer OTHER, SELFPAY ==
--- NOTE | 2024-10-25 15:47 | MHC.PC.OV ---
Vital Signs 10/25/24 15:51 Height 5 ft 8 in Weight 162 lb BMI 24.6 BP 124/74 Blood Pressure Location Rt brachial Position Sitting Respiration 12 Pulse 85 Pulse Source Pulse Oximeter Pulse Oximetry (%) 96 Oxygen Delivery Method Room Air Intake Visit Reasons: follow up Intake Note: Follow up Geospatial Scientist Required: No Allergies No Known Allergies Allergy (Verified 10/25/24 15:47) Tobacco use date assessed: 10/25/24 Dental Screening Dental Screen Date: 04/26/24 HPI HPI Comments History of Present Illness Details 44-year-old female with a past medical history of breast cancer, depression presenting for follow up Anxiety/depression: Doing much better. Continues therapy-BHN. Stable on sertraline, trazodone, lorazepam. She has started to get anxious and depressed. Her boyfriend recently broke up with her. She has finished chemo treatments then he started to become distant and she thinks he may have been carrying on another relationship. She is frequently teary, having difficulty sleeping and feels lack of motivation. Just feeling very vulnerable and fragile after going through cancer treatment and now this Heme/Onc: Breast cancer diagnosed 2022. Following with Dr Allen. Every 3 months. Continues on letrozole, Kisqali. completion of 4 cycles of AC. She underwent left breast lumpectomy and axillary dissection on 02/04/2024. Pathology revealed residual invasive carcinoma, grade 2. She is currently on week 3/6 of radiation therapy. She was started on Lupron on 02/13/2024. Following radiation therapy she will be started on aromatase inhibitor along with CDK4/6 inhibitor abemaciclib 150 mg b.i.d. for 2 years based on node positive high-risk hormone receptor positive breast cancer Due for colonoscopy-gastro referral is in ROS see HPI PHYSICAL EXAM: GENERAL: Alert and oriented x 3. NAD EYES: EOMI. Anicteric. HENT: Moist mucous membranes. No scleral icterus. No cervical lymphadenopathy. LUNGS: Clear to auscultation bilaterally. CARDIOVASCULAR: Regular rate and rhythm. No murmur. No JVD. ABDOMEN: Soft, non-tender +bs EXTREMITIES: No edema. Non-tender. SKIN: No rashes or lesions. Warm. NEUROLOGIC: No focal neurological deficits. CN II-XII grossly intact PSYCHIATRIC: Cooperative. Appropriate mood and affect [facility] Medical History Axillary lymphadenopathy Port-A-Cath in place Invasive ductal carcinoma of breast, stage 2 Abnormal Pap smear of cervix Gallstone of bile duct with obstruction Surgical History History of lumpectomy of left breast (02/04/24) Status post left breast lumpectomy Hx of breast biopsy History of ERCP History of tonsillectomy History of loop electrical excision procedure (LEEP) Hx of cholecystectomy Family History Sister Breast cancer, Onset Age: 47 Father HTN (hypertension) Mother HTN (hypertension) Thyroid disorder Social History Household Members: Other Household Members Other:: self Housing: House Are you a primary child care worker to a significant other at home: No Do you presently have visiting nurse or other home services: No Unable to assess alcohol history related to: Unknown Alcohol intake: current Alcohol intake frequency: holidays/special occasions only Comment: counts correct Patient Tobacco Use Status: Former Tobacco user Tobacco use type: Cigarette Cigarette Packs Per Day: 1 Years Smoked: 4 e-Cigarette/Vaping Use: Never Used Second Hand Smoke Exposure: No Advance Directives Date on File: 10/23/23 service: No Current occupational status: employed 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 1. Little interest or pleasure in doing things: not at all 2. Feeling down, depressed, or hopeless: several days 3. Trouble falling or staying asleep, or sleeping too much: not at all 4. Feeling tired or having little energy: several days 5. Poor appetite or overeating: not at all 6. Feeling bad about yourself - or that you are a failure or have let yourself or your family down: not at all 7. Trouble concentrating on things, such as reading the newspaper or watching television: not at all 8. Moving or speaking so slowly that other people could have noticed. Or the opposite - being so fidgety or restless that you have been moving around a lot more than usual: not at all 9. Thoughts that you would be better off or of hurting yourself in some way: not at all Total score: 2 Depression Screening Interpretation: Negative Depression Screening Done: Yes 36184 - PHQ-9 Billing: Yes Source: Developed by Drs. Sudeep Soto, Pati King, Juan Calvo and colleagues, with an educational clint from [employer]. Thrive Questionnaire Date Thrive assessed: 10/18/24 I am a: Patient What is your living situation today?: I have a steady place to live Within the past 12 months, did the food you bought not last and you didn't have the money to get more?: Never true Within the past 12 months, did you worry whether your food would run out before you got money to buy more?: Never true Do you have trouble paying for medicines?: No Do you have trouble getting transportation to medical appointments?: No Do you have trouble paying your heating and electricity bill?: No Do you have trouble taking care of your child, family member or friend?: No Do you have trouble with day-to-day activities such as bathing, preparing meals, shopping, managing finances, etc.?: No Are you currently unemployed and looking for a job?: Yes Are you interested in more education?: No Please select the resources that you would like help with: None Currently or been in a relationship where the following occur: No concerns reported THRIVE Score: 0 AUDIT C Alcohol Use Questionnaire (AUDIT-C) 1. How often do you have a drink containing alcohol?: 2-4 times a month 2. How many drinks containing alcohol do you have on a typical day when you are drinking?: 1 or 2 3. How often do you have six or more drinks on one occasion?: Never Total Score: 2 RICARDA-7 AMB Questionnaire RICARDA-7 Date RICARDA - 7 assessed: 10/25/24 Feeling nervous, anxious, or on edge: 1 = Several days Not being able to stop or control worryin = More than half the days Worrying too much about different things: 0 = Not at all Trouble relaxin = Not at all Being so restless that it is hard to sit still: 0 = Not at all Becoming easily annoyed or irritable: 0 = Not at all Feeling afraid as if something awful might happen: 0 = Not at all Total RICARDA-7 score (0-4 normal; 5-9 mild; 10-14 moderate; 15-21 severe): 3 Source: Developed by Drs. Sudeep Soto, Pati King, Juan Calvo and colleagues, with an educational clint from [employer]. RICARDA-7 Assessment Billing RICARDA-7 Assessment Tool: RICARDA-7 Assessment 40503 Physical exam (Primary Care) Vital Signs: Last Vital Signs Pulse 85 10/25/24 15:51 Resp 12 10/25/24 15:51 BP 124/74 10/25/24 15:51 Pulse Ox 96 10/25/24 15:51 Oxygen Delivery Method Room Air 10/25/24 15:51 BMI result Body Mass Index 24.6 Tobacco/Smoking Status: Tobacco use Status Tobacco use date assessed 10/25/24 10/25/24 15:54 Patient Tobacco Use Status Former Tobacco user 10/25/24 15:54 Tobacco use type Cigarette 10/25/24 15:54 e-Cigarette/Vaping Use Never Used 10/25/24 15:54 PHQ-9: PHQ-9 Score PHQ-9: Total score 2 10/25/24 15:54 Depression Screening Interpretation: Negative Thrive Assessment: Date of Thrive Assessment Date Thrive assessed 10/18/24 10/25/24 15:54 Currently or been in a relationship where the following occur: No concerns reported Coding Level of Care Code Est Pt Level 4 (39483) Diagnoses Situational depression F43.21 Infiltrating ductal carcinoma of left breast, stage 2 C50.912 Laterality: left Additional Codes RICARDA-7 Assessment Billing - RICARDA-7 Assessment Tool: RICARDA-7 Assessment 86739 ([id number]) PHQ-9 - 96864 - PHQ-9 Billing: Yes ([id number]) Assessment & Plan Assessment & Plan (1) Situational depression: Code(s): F43.21 - Adjustment disorder with depressed mood Category: Medical (2) Invasive ductal carcinoma of breast, stage 2: Code(s): C50.919 - Malignant neoplasm of unspecified site of unspecified female breast Category: Medical Qualifiers: Laterality: left Qualified Code(s): C50.912 - Malignant neoplasm of unspecified site of left female breast Plan Depression and anxiety are stable on current medication regimen and therapy Breast Cancer-continues follow up with oncology q 3 months now Referral for colonoscopy Orders: Referrals Gastroenterology Referral Z12.11 - Encounter for screening for malignant neoplasm of colon Medications: Refilled sertraline 50 mg PO DAILY 90 tabs 3RF lorazepam 0.5 mg PO BID 30 days PRN 60 tabs 0RF anxiety
[2024-10-25 15:51] VITALS: BP 124/74; PULSE 85; RESP 12; O2SAT 96; BMI 24.6
--- OUTSIDE RECORDS SUMMARY | 2024-10-25 17:35 | XMS_ITS ---
Author Name [facility] Organization Unknown Care Team Organization Name Specialty Phone Email Start Date End [facility]
== END 2024-10-25 16:07 | disposition home or self-care (01) ==
LOC: HO.HMCFM 15:37
PROVIDERS: PCP Internal Medicine; Visit Provider Internal Medicine
DX: F43.21 Adjustment disorder with depressed mood (principal); C50.912 Malignant neoplasm of unspecified site of left female breast

== ENCOUNTER → 2024-10-25 15:36 | Outpatient (BNVA) | payer OTHER, SELFPAY | PROVIDERS: PCP Internal Medicine; Visit Provider Internal Medicine | DX: F43.21 Adjustment disorder with depressed mood (principal); C50.912 Malignant neoplasm of unspecified site of left female breast; Z87.891 Personal history of nicotine dependence | CPT/HCPCS: 96127 ==

== ENCOUNTER 2024-12-30 14:59 | Outpatient (AMB) | payer OTHER, SELFPAY ==
--- NOTE | 2024-12-30 15:01 | A.OFFVIS_ITS ---
Vital Signs 3 12/30/24 15:12 Height 5 ft 8 in Weight 166 lb 6 oz BMI 25.3 BP 137/81 Blood Pressure Location Lt brachial Position Sitting Pulse 69 Intake Visit Reasons: 6 month follow up, breast exam Intake Note: Patient is seen in office for 6 month follow up visit, breast exam. Pt c/o: no changes since last visit mm: 10/14/24 Senior Grant Writer Required: No Chief Librarian Branch Or Department: Chief Librarian Branch Or Department Present Accompanied by: Self / Same As Patient Allergies No Known Allergies Allergy (Verified 12/30/24 15:09) HPI Comments Details: 44-year-old female patient returning for a breast cancer follow-up examination. She was found to have a large irregular spiculated hypoechoic lobulated mass in the left breast on mammogram obtained 07/02/2023. The mass measured 3.2 cm and was highly suspicious for malignancy. She underwent ultrasound-guided core biopsy of a left breast mass and axillary lymph node on 07/08/2023. Pathology confirmed a left breast invasive ductal carcinoma, grade 2-3, ER/ SD positive, HER2 Krissy negative, Ki-67 40% ( high); lymph node left axilla was positive for metastatic carcinoma consistent with breast primary [id number] (stage IIB). She was evaluated by Dr. Allen and started on dose dense AC followed by Taxol q.week times 12. Genetic testing was negative. Left breast lumpectomy with right axillary node dissection was performed on 02/04/2024. Pathology confirmed residual invasive ductal carcinoma grade 2, 28 mm with less than 1 mm posterior margin. 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 One intramammary lymph node was negative for metastatic carcinoma. Two of 8 axillary lymph nodes were positive for metastatic ductal carcinoma (ypT2a [id number]). She feels much improved with better mobility of her left arm and less pain with motion. She completed radiation therapy and tolerated this well. She is now on letrozole 0.5 mg daily and Verzenio. Family history is significant for her sister developing breast cancer at the age of 48. She is with 1 AB. Her most recent mammogram of 10/14/2024 revealed postoperative changes in the left breast with no mammographic evidence of malignancy (BI-RADS 2). Follow-up mammogram in 1 year is recommended. [facility] Medical History Axillary lymphadenopathy Port-A-Cath in place Invasive ductal carcinoma of breast, stage 2 Abnormal Pap smear of cervix Gallstone of bile duct with obstruction Surgical History History of lumpectomy of left breast (02/04/24) Status post left breast lumpectomy Hx of breast biopsy History of ERCP History of tonsillectomy History of loop electrical excision procedure (LEEP) Hx of cholecystectomy Family History Sister Breast cancer, Onset Age: 47 Father HTN (hypertension) Mother HTN (hypertension) Thyroid disorder Social History Household Members: Other Household Members Other:: self Housing: House Are you a primary plant care worker to a significant other at home: No Do you presently have visiting nurse or other home services: No Unable to assess alcohol history related to: Unknown Alcohol intake: current Alcohol intake frequency: holidays/special occasions only Comment: counts correct Patient Tobacco Use Status: Former Tobacco user Tobacco use type: Cigarette Cigarette Packs Per Day: 1 Years Smoked: 4 e-Cigarette/Vaping Use: Never Used Second Hand Smoke Exposure: No Advance Directives Date on File: 10/23/23 service: No Current occupational status: employed 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 ,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 Current occupational exposures/hazards: Yes Sexual orientation: Straight/Heterosexual Gender identity: Female Cognitive needs: No Hearing needs: No Vision needs: No Female Reproductive History Menstrual Age of Menarche: 14 Review of Systems Const All systems reviewed & are unremarkable except as noted in HPI and below Physical Exam Vital Signs: Last Vital Signs Pulse 69 12/30/24 15:12 BP 137/81 12/30/24 15:12 BMI result Body Mass Index 25.3 Const General: no acute distress Nutritional Appearance: well nourished Orientation/consciousness: patient oriented x3 Chest Other: Right breast: No skin change, nipple discharge, nipple retraction, palpable mass or enlarged lymph nodes. Left breast: Well-healed incisions in the left breast in a circumareolar location, with no palpable mass or new skin change, nipple discharge, or enlarged lymph nodes. Minimal radiation change noted in skin. Chest/axillae images: 2 1. Well-healed incision circumareolar and in the left axilla Skin Other: Warm, dry, no rash Neuro Other: Mobility Assessment: 1. 3 meter assessment time (seconds) 5 2. Gait observations: Normal balance and gait General: patient oriented x3 Extrem Other: No evidence of lymphedema Assessment & Plan Assessment & Plan (1) Invasive ductal carcinoma of breast, stage 2: Code(s): C50.919 - Malignant neoplasm of unspecified site of unspecified female breast Category: Medical Qualifiers: Laterality: left Qualified Code(s): C50.912 - Malignant neoplasm of unspecified site of left female breast Plan 44-year-old female patient status post left breast lumpectomy and axillary node dissection for invasive ductal carcinoma. She has now completed radiation therapy and tolerated this well. Examination today reveals no suspicious findings in either breast. Her most recent mammogram dated 10/14/2024 revealed postoperative changes but no mammographic evidence of malignancy (BI-RADS 2). Follow-up mammogram in 1 year is recommended. I recommended follow-up examination in 6 months, sooner PRN. She will continue to follow up with Dr. Allen. Coding Level of Care Code Est Pt Level 3 (26806) Complex EM visit Add On G2211 Diagnoses Infiltrating ductal carcinoma of left breast, stage 2 C50.912 Laterality: left
[2024-12-30 15:12] VITALS: BP 137/81; PULSE 69; BMI 25.3
== END 2024-12-30 15:20 | disposition home or self-care (01) ==
PROVIDERS: PCP Internal Medicine; Visit Provider Surgery
DX: C50.912 Malignant neoplasm of unspecified site of left female breast (principal)
CPT/HCPCS: 99213

== ENCOUNTER 2025-03-25 13:36 | Outpatient (AMB) | payer OTHER, SELFPAY ==
--- OUTSIDE RECORDS SUMMARY | 2025-03-25 13:42 | XMS_ITS ---
Author Name [facility] Organization Unknown Care Team Organization Name Specialty Phone Email Start Date End Da te [facility] ([facility])
--- OUTSIDE RECORDS SUMMARY | 2025-03-25 13:42 | XMS_ITS | Clinical Summary ---
Author Organization [facility] Address [address] [address] Phone Care Team Providers Care Puncher And Fastener Name Role Phone Maru Leone MD Primary Care Provider Allergies No known active allergies Medications cefuroxime (CEFTIN) 500 MG tablet Take 1 tablet by mouth 2 (two) times a day. 4 Active ondansetron (ZOFRAN-ODT) 8 MG disintegrating tablet DISSOLVE 1 TABLET ON THE TONGUE EVERY 8 HOURS NEEDED FOR NAUSEA OR VOMITING 4 Active traZODone (DESYREL) 50 MG tablet Take 50 mg by mouth nightly at bedtime. at bedtime. 4 Active LORazepam (ATIVAN) 0.5 MG tablet Take 0.5 mg by mouth 2 (two) times a day as needed for anxiety. 4 Active sertraline (ZOLOFT) 25 MG tablet TAKE 1/2 A TABLET BY MOUTH ONCE A DAY FOR 1 WEEK THEN 1 TABLET ONCE A DAY THEREAFTER 4 Active Medication-Free Text Hair vitamin Active therapeutic multivitamin tablet Take 1 tablet by mouth daily. Active loratadine (CLARITIN REDITABS) 10 mg dissolvable tablet Take 10 mg by mouth daily. Active Active Problems Problem Noted Date Diagnosed Date Invasive ductal carcinoma of left breast in fema le 04/21/2024 Immunizations Immunization Administration Dates Next Due Influenza Quadrivalent Preservative Free IM 01/2022 Family History Medical History Relation Comments Breast cancer Sister Relation Status Comments Sister Social History Tobacco Use Types Packs/Day Years Used Date Smoking Tobacco: Former Cigarettes Smokeless Tobacco: Never Tobacco Cessation:Counseling Given: Not Answered Alcohol Use Standard Drinks/Week Comments Yes 0 (1 standard drink = 0.6 oz pur e alcohol) 1 a month Education Answer Date Recorded Are you interested in more education? Not on jacqueline e 01/14/2024 Are you concerned about learning? Not on file 01/14/2024 No 01/14/2024 No 01/14/2024 Digital Access Answer Date Recorded No 01/14/2024 No 01/14/2024 Reliable internet access at home? Not on file 01/14/2024 Device with a working camera? Not on file Comments Unknown Sex and Gender Information Value Date Recorded Sex Assigned at Not on file Legal Sex Female 1:50 PM EDT Gender Identity Not on file Sexual Orientation Not on file Last Filed Vital Signs Vital Sign Reading Time Taken Comments Blood Pressure 131/91 05/24/2024 10:34 AM EDT Pulse 82 05/24/2024 10:34 AM EDT Temperature 36.5 C (97.7 F) 05/06/2024 9:34 AM EDT Respiratory Rate 18 05/06/2024 9:34 AM EDT Oxygen Saturation 99% 05/24/2024 10:34 AM EDT Inhaled Oxygen Concentration - - Weight 66.2 kg (146 lb) 05/13/2024 10:22 AM EDT Height - - Body Mass Index - - Plan of Treatment Upcoming Encounters Date Type Department Care Team (Late st Contact Info) Description 11/17/2025 3:00 PM EDT Office Visit [facility] Rad Onc [address] [place] [id number] Gina Cavanaugh MD [address] [place] [address] [email or web address] Health Maintenance Due Date Last Done Comments Adult Td,Tdap Booster 1978 DEPRESSION SCREENING 1990 SMOKING Hx and SMOKELESS TOB ACCO SCREENING 1991 HEPATITIS C SCREENING 1996 HIV ONE-TIME SCREENING (18-6 5 YEARS) 1996 PNEUMOCOCCAL VACCINES (0-49 years) (1 of 2 - PCV) 1997 PAP SMEAR 1999 MAMMOGRAM 2018 COLOGUARD 2023 COLONOSCOPY 2023 COLORECTAL CANCER SCREENING 2023 FIT TEST 2023 FOBT 2023 SIGMOIDOSCOPY 2023 VIRTUAL COLONOSCOPY 2023 COVID-19 VACCINE (2023-2 5 season) 2024 LIPID PANEL 12/01/2025 12/01/2020 HEPATITIS A VACCINES Aged Out No long er eligible based on patient's age to complete this topic HIB VACCINES Aged Out No longer eligi ble based on patient's age to complete this topic MENINGOCOCCAL VACCINES (ACWY) Aged Out No longer eligible based on patient's age to complete this topic MENINGOCOCCAL VACCINES (B) Aged Out N o longer eligible based on patient's age to complete this topic Medical Devices Not on file Insurance BT Imaging [facility] CHOICE LEATHA RODRIGUEZ [id number] BT Imaging [facility] [employer] CHOICE [facility] CHOICE [facility] CHOICE [facility] CHOICE [facility] Care Teams Puncher And Fastener Relationship Specialty Start Date End Date Maru Leone MD PCP - General Internal Medicine 01/14/24 Additional Source Comments The information contained in this document represents components of the legal health record. It is not the complete legal health record.[facility]
--- NOTE | 2025-03-25 13:57 | MHC.OFFVIS ---
Vital Signs 03/25/25 14:23 Height 5 ft 8 in Weight 167 lb BMI 25.4 BP 139/81 Blood Pressure Location Rt brachial Intake Visit Reasons: Colonoscopy Screening Accompanied by: Self / Same As Patient Allergies No Known Allergies Allergy (Verified 03/29/25 14:45) HPI HPI Colonoscopy Screening: Details: 44-year-old female here for preprocedural meeting to discuss a screening colonoscopy. She is referred by Maru Moy. PMX Breast cancer Anxiety /depression History of gallstone pancreatitis with ERCP * SURGICAL HISTORY Left breast lung ectomy Breast biopsy ERCP Tonsillectomy LEEP procedure Cholecystectomy * ALLERGIES: NKDA * [facility] LABS: Laboratory Tests 12/27/24 15:05 WBC 3.7 L RBC 3.06 L Hgb 11.2 L Hct 32.1 L MCV 104.9 H MCH 36.6 H Plt Count 245 Estimated GFR > 60 Total Bilirubin 0.2 AST 27 ALT 22 Alkaline Phosphatase 103 TODAY'S VISIT This is her first colonoscopy. She suffers occasional CIC since her chemo and her iron therapy and she successfully manages this with colace, no upper GI problems. No card or resp problems NO anes or sed problems. No ID problems. There is no known FHX of CRC or polyps. [facility], [facility] Medical History (Updated 03/29/25 @ 15:00 by Shanita Allen MD) Encounter to establish care Physical exam Encounter for well woman exam with routine gynecological exam Encounter for annual routine gynecological examination Screening for colon cancer Screening for hyperlipidemia Axillary lymphadenopathy Port-A-Cath in place Invasive ductal carcinoma of breast, stage 2 Abnormal Pap smear of cervix Gallstone of bile duct with obstruction Surgical History History of lumpectomy of left breast (02/04/24) Status post left breast lumpectomy Hx of breast biopsy History of ERCP History of tonsillectomy History of loop electrical excision procedure (LEEP) Hx of cholecystectomy Family History Sister Breast cancer, Onset Age: 47 Father HTN (hypertension) Mother HTN (hypertension) Thyroid disorder Social History Household Members: Other Household Members Other:: self Housing: House Are you a primary rn care transition to a significant other at home: No Do you presently have visiting nurse or other home services: No Unable to assess alcohol history related to: Unknown Alcohol intake: current Alcohol intake frequency: holidays/special occasions only Comment: counts correct Patient Tobacco Use Status: Former Tobacco user Tobacco use type: Cigarette Cigarette Packs Per Day: 1 Years Smoked: 4 e-Cigarette/Vaping Use: Never Used Second Hand Smoke Exposure: No Use of substances other than those prescribed or required for medical reasons: Unknown Have you been hit, kicked, punched, or otherwise hurt by someone within the past year? 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 Current occupational exposures/hazards: Yes Sexual orientation: Straight/Heterosexual Gender identity: Female Cognitive needs: No Hearing needs: No Vision needs: No Female Reproductive History Menstrual Age of Menarche: 14 Review of Systems Const Denies fatigue, Denies fever(s), Denies night sweats, Denies poor appetite and Denies weight loss Eyes Details: glasses Reports requires corrective lenses ENT Reports Normal hearing present, Denies dental pain, Denies dysphagia, Denies hearing loss, Denies mouth pain, Denies odynophagia, Denies throat swelling, Denies tongue swelling and Reports other (Dentition adequate) Card Reports no additional complaints Resp Reports no additional complaints GI Details: Denies abdominal pain, Denies melena, Denies bloating, Denies hematochezia, Reports constipation, Denies GI cramping, Denies dysphagia, Denies excessive flatus, Denies early satiety, Denies heartburn, Denies diarrhea, Denies nausea, Denies odynophagia, Denies vomiting and Denies hematemesis Skin/Breast Denies pruritus, Denies lesions, Denies rash and Denies jaundice Neuro Reports Normal hearing present and Denies Abnormal speech present Endo Denies fatigue Aller/Immun Denies throat swelling and Denies tongue swelling Physical Exam Vital Signs: Last Vital Signs BP 139/81 03/25/25 14:23 BMI result Body Mass Index 25.4 Const General: cooperative, no acute distress, well developed and well groomed Nutritional Appearance: average body habitus and well nourished Orientation/consciousness: oriented to person, oriented to place and oriented to time Limitations: No language barrier HEENT Head: Yes normocephalic and Yes atraumatic Eyes General: appearance normal, both eyes and all related structures Pupils: Equal, round and reactive pupils present Neck Neck: Yes normal visual inspection and Yes no lymphadenopathy Thyroid: Thyroid normal Resp Effort & Inspection: normal respiratory effort and able to speak in complete sentences Auscultation: clear to auscultation bilaterally Cardio Rate: regular rate Rhythm: regular rhythm Heart sounds: Normal, physiologic split S2 sound present Peripheral pulses: radial pulses present and posterior tibial pulses present GI Inspection: No distended and No Abdominal panniculus present Palpation (GI): Soft to palpation, nontender, no guarding, not rigid and No hepatosplenomegaly present Percussion: Yes normal to percussion Auscultation: normal bowel sounds Rectal Exam - Female: deferred Skin General skin exam: no rashes or lesions noted, turgor normal, skin not dry, no jaundice, No spider nevi and no striae Rashes: no rashes Nails: normal Neuro General: oriented to person, oriented to place and oriented to time Cranial nerves: Yes Equal, round and reactive pupils present and Yes Normal hearing present Speech: No Abnormal speech present Extrem General: Yes normal to inspection, No clubbing, No cyanosis and No edema Psych Appearance: grossly normal and well kempt Mental Status: mental status grossly normal Speech and movement: Normal speech and movement present Affect: normal affect Attitude: cooperative Thought process: Normal thought process present and not confabulating Thought content: Normal thought content present Insight: Good insight present (Psych) Judgement: Good judgement present (Psych) Results Reviewed Results Reviewed: Laboratory Tests 12/27/24 15:05 WBC 3.7 L RBC 3.06 L Hgb 11.2 L Hct 32.1 L MCV 104.9 H MCH 36.6 H Plt Count 245 Estimated GFR > 60 Total Bilirubin 0.2 AST 27 ALT 22 Alkaline Phosphatase 103 Assessment & Plan Assessment & Plan (1) Pre-op examination: Code(s): Z01.818 - Encounter for other preprocedural examination Category: Medical Plan This is her first colonoscopy. She suffers occasional CIC since her chemo and her iron therapy and she successfully manages this with colace, no upper GI problems. No card or resp problems NO anes or sed problems. No ID problems. There is no known FHX of CRC or polyps. Orders: Orders Colonoscopy - GI Use Only 03/25/25 Z01.818 - Encounter for other preprocedural examination Medications: New sodium,potassium,mag sulfates 17.5-3.13-1.6 gram (Suprep Bowel Prep Kit) 480 mL orally; FOR COLONOSCOPY PREP 354 mL 0RF Coding Level of Care Code New Pt Level 3 (03447) Diagnoses Pre-op examination Z01.818
[2025-03-25 14:23] VITALS: BP 139/81; BMI 25.4
== END 2025-03-25 15:04 | disposition home or self-care (01) ==
LOC: HO.HGI 13:37
PROVIDERS: PCP Internal Medicine; Visit Provider Nurse Practitioner
DX: Z01.818 Encounter for other preprocedural examination (principal); Z12.11 Encounter for screening for malignant neoplasm of colon
CPT/HCPCS: S0285

== ENCOUNTER 2025-05-02 15:42 | Outpatient (AMB) | payer OTHER, SELFPAY ==
--- NOTE | 2025-05-02 15:52 | MHC.PC.OV ---
Vital Signs 05/02/25 15:53 Height 5 ft 8 in Weight 166 lb 8 oz BMI 25.3 BP 132/78 Blood Pressure Location Rt brachial Position Sitting Respiration 14 Pulse 69 Pulse Source Pulse Oximeter Pulse Oximetry (%) 98 Oxygen Delivery Method Room Air Intake Visit Reasons: follow up anxiety/depression Intake Note: Follow up Credit Products Officer Required: No Allergies No Known Allergies Allergy (Verified 05/02/25 15:54) Tobacco use date assessed: 05/02/25 Dental Screening Dental Screen Date: 05/02/25 Did you have a dental visit in the last 12 months?: No Did you have a dental problem in the last 6 months where you did not have access to dental care?: No Was dental information given to patient?: Patient has dentist HPI HPI Comments History of Present Illness Details 44-year-old female with a past medical history of breast cancer, depression presenting for follow up Anxiety/depression: Continues therapy, psychiatry-N. Stable on sertraline. She has started to get anxious and depressed. Her boyfriend recently broke up with her. She has finished chemo treatments then he started to become distant and she thinks he may have been carrying on another relationship. She is frequently teary, having difficulty sleeping and feels lack of motivation. Just feeling very vulnerable and fragile after going through cancer treatment and now this Heme/Onc: Breast cancer diagnosed 2022. Following with Dr Allen. Continues on letrozole, Kisqali. completion of 4 cycles of AC. She underwent left breast lumpectomy and axillary dissection on 02/04/2024. Pathology revealed residual invasive carcinoma, grade 2. completed radiation therapy She was started on Lupron on 02/13/2024. Due for colonoscopy-gastro preoperative done and she is waiting for colonoscopy date. ROS see HPI PHYSICAL EXAM: GENERAL: Alert and oriented x 3. NAD EYES: EOMI. Anicteric. HENT: Moist mucous membranes. No scleral icterus. No cervical lymphadenopathy. LUNGS: Clear to auscultation bilaterally. CARDIOVASCULAR: Regular rate and rhythm. No murmur. No JVD. ABDOMEN: Soft, non-tender +bs EXTREMITIES: No edema. Non-tender. SKIN: No rashes or lesions. Warm. NEUROLOGIC: No focal neurological deficits. CN II-XII grossly intact PSYCHIATRIC: Cooperative. Appropriate mood and affect [facility] Medical History Encounter to establish care Physical exam Encounter for well woman exam with routine gynecological exam Encounter for annual routine gynecological examination Screening for colon cancer Screening for hyperlipidemia Axillary lymphadenopathy Port-A-Cath in place Invasive ductal carcinoma of breast, stage 2 Abnormal Pap smear of cervix Gallstone of bile duct with obstruction Surgical History History of lumpectomy of left breast (02/04/24) Status post left breast lumpectomy Hx of breast biopsy History of ERCP History of tonsillectomy History of loop electrical excision procedure (LEEP) Hx of cholecystectomy Family History Sister Breast cancer, Onset Age: 47 Father HTN (hypertension) Mother HTN (hypertension) Thyroid disorder Social History Household Members: Other Household Members Other:: self Housing: House Are you a primary care program director to a significant other at home: No Do you presently have visiting nurse or other home services: No Alcohol intake: current Alcohol intake frequency: holidays/special occasions only Comment: counts correct Patient Tobacco Use Status: Former Tobacco user Tobacco use type: Cigarette Cigarette Packs Per Day: 1 Years Smoked: 4 e-Cigarette/Vaping Use: Never Used Second Hand Smoke Exposure: No Advance Directives Date on File: 10/23/23 service: No Current occupational status: employed 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 ,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 Current occupational exposures/hazards: Yes Sexual orientation: Straight/Heterosexual Gender identity: Female Cognitive needs: No Hearing needs: No Vision needs: No Female Reproductive History Menstrual Age of Menarche: 14 Questionnaire Thrive Questionnaire Date Thrive assessed: 10/18/24 I am a: Patient What is your living situation today?: I have a steady place to live Within the past 12 months, did the food you bought not last and you didn't have the money to get more?: Never true Within the past 12 months, did you worry whether your food would run out before you got money to buy more?: Never true Do you have trouble paying for medicines?: No Do you have trouble getting transportation to medical appointments?: No Do you have trouble paying your heating and electricity bill?: No Do you have trouble taking care of your child, family member or friend?: No Do you have trouble with day-to-day activities such as bathing, preparing meals, shopping, managing finances, etc.?: No Are you currently unemployed and looking for a job?: Yes Are you interested in more education?: No Please select the resources that you would like help with: None Currently or been in a relationship where the following occur: No concerns reported THRIVE Score: 0 RICARDA-7 AMB Questionnaire RICARDA-7 Date RICARDA - 7 assessed: 10/25/24 Source: Developed by Drs. Sudeep Soto, Pati King, Juan Calvo and colleagues, with an educational clint from [employer]. Physical exam (Primary Care) Vital Signs: Last Vital Signs Pulse 69 05/02/25 15:53 Resp 14 05/02/25 15:53 BP 132/78 05/02/25 15:53 Pulse Ox 98 05/02/25 15:53 Oxygen Delivery Method Room Air 05/02/25 15:53 BMI result Body Mass Index 25.3 Tobacco/Smoking Status: Tobacco use Status Tobacco use date assessed 05/02/25 05/02/25 16:00 Patient Tobacco Use Status Former Tobacco user 05/02/25 16:00 Tobacco use type Cigarette 05/02/25 16:00 e-Cigarette/Vaping Use Never Used 05/02/25 16:00 Thrive Assessment: Date of Thrive Assessment Date Thrive assessed 10/18/24 05/02/25 16:00 Currently or been in a relationship where the following occur: No concerns reported Coding Level of Care Code Est Pt Level 3 (68460) Diagnoses Situational depression F43.21 Anxiety F41.9 Elevated glucose R73.09 Infiltrating ductal carcinoma of left breast, stage 2 C50.912 Laterality: left Assessment & Plan Assessment & Plan (1) Situational depression: Code(s): F43.21 - Adjustment disorder with depressed mood Category: Medical (2) Anxiety: Code(s): F41.9 - Anxiety disorder, unspecified Category: Medical (3) Elevated glucose: Code(s): R73.09 - Other abnormal glucose Category: Medical (4) Invasive ductal carcinoma of breast, stage 2: Code(s): C50.919 - Malignant neoplasm of unspecified site of unspecified female breast Category: Medical Qualifiers: Laterality: left Qualified Code(s): C50.912 - Malignant neoplasm of unspecified site of left female breast Plan 44 year old presenting for follow up Depression, anxiety & insomnia are quite stable on current regimen She is awaiting colonoscopy Breast cancer-continues follow up with heme/onc Orders: Orders Hemoglobin A1c 05/02/25 F41.9 - Anxiety disorder, unspecified, F43.21 - Adjustment disorder with depressed mood, R53.83 - Other fatigue, R73.09 - Other abnormal glucose TSH reflex Free T4 05/02/25 F41.9 - Anxiety disorder, unspecified, F43.21 - Adjustment disorder with depressed mood, R53.83 - Other fatigue, R73.09 - Other abnormal glucose Lipid Panel 05/02/25 F41.9 - Anxiety disorder, unspecified, F43.21 - Adjustment disorder with depressed mood, R53.83 - Other fatigue, R73.09 - Other abnormal glucose
[2025-05-02 15:53] VITALS: BP 132/78; PULSE 69; RESP 14; O2SAT 98; BMI 25.3
--- OUTSIDE RECORDS SUMMARY | 2025-05-02 18:02 | XMS_ITS | Clinical Summary ---
Author Organization [facility] Address [address] [address] Phone Care Team Providers Care Fresh Food Manager Name Role Phone Maru Leone MD Primary [...] Description 11/17/2025 3:00 PM EDT Office Visit [facility] Rad Onc [address] [place] [id number] Gina Cavanaugh MD [address] [place] [address] [email or web address] Health Maintenance Due Date Last Done Comments [...] FOBT 2023 SIGMOIDOSCOPY 2023 VIRTUAL COLONOSCOPY 2023 INFLUENZA VACCINE (#1) 2025 07/03/2022 COVID-19 VACCINE (2024-2 6 season) 2025 LIPID PANEL 12/01/2025 12/01/2020 HEPATITIS A VACCINES [...] topic Medical Devices Not on file Insurance Gear6 [facility] [employer] LEATHA RODRIGUEZ [id number] Gear[employer] [facility] [employer] CHO[facility] CHOICE [facility] CHOICE [facility] CHOICE [facility] CHOICE Care Teams Fresh Food Manager Relationship Specialty Start Date End Date Maru Leone MD PCP - General Internal Medicine 01/14/24 Additional Source Comments The information contained in this document represents components of the legal health record. It is not the complete legal health record.[facility]
== END 2025-05-02 16:22 | disposition home or self-care (01) ==
LOC: HO.HMCFM 15:43
PROVIDERS: PCP Internal Medicine; Visit Provider Internal Medicine
DX: F43.21 Adjustment disorder with depressed mood (principal); F41.9 Anxiety disorder, unspecified; R73.09 Other abnormal glucose; C50.912 Malignant neoplasm of unspecified site of left female breast

== ENCOUNTER 2025-05-19 14:18 | Outpatient (REF) | payer OTHER, SELFPAY | END 2025-05-19 14:19 | disposition home or self-care (01) | LOC: HO.LNP 14:18 | PROVIDERS: PCP Internal Medicine; Visit Provider Advanced Practice Midwife | DX: Z01.419 Encounter for gynecological examination (general) (routine) without abnormal findings (principal); R87.619 Unspecified abnormal cytological findings in specimens from cervix uteri; Z11.51 Encounter for screening for human papillomavirus (HPV) | CPT/HCPCS: 87626; 88175 ==

== ENCOUNTER 2025-05-19 14:18 | Outpatient (AMB) | payer OTHER, SELFPAY ==
--- NOTE | 2025-05-19 14:20 | A.OFFVIS_ITS ---
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 Regular monthly menses. Currently is sexually active. She denies vaginal itching or irritation. STI screening offered; she accepts. She tries to eat healthy and stays active with exercise. Last pap smear 2021, negative. Mammogram: follow by surgery and oncology. FOR[facility]LY [facility] Medical History (Updated 05/19/25 @ 15:02 by Robyn Mauricio CNM) Encounter for well woman exam with routine gynecological exam Encounter to establish care Physical exam Encounter for annual routine gynecological examination Screening for colon cancer Screening for hyperlipidemia Axillary lymphadenopathy Port-A-Cath in place Invasive ductal carcinoma of breast, stage 2 Abnormal Pap smear of cervix Gallstone of bile duct with obstruction Surgical History History of lumpectomy of left breast (02/04/24) Status post left breast lumpectomy Hx of breast biopsy History of ERCP History of tonsillectomy History of loop electrical excision procedure (LEEP) Hx of cholecystectomy Family History Sister Breast cancer, Onset Age: 47 Father HTN (hypertension) Mother HTN (hypertension) Thyroid disorder Social History Household Members: Other Household Members Other:: self Housing: House Are you a primary patient care specialist to a significant other at home: No Do you presently have visiting nurse or other home services: No Alcohol intake: current Alcohol intake frequency: holidays/special occasions only Comment: counts correct Patient Tobacco Use Status: Former Tobacco user Tobacco use type: Cigarette Cigarette Packs Per Day: 1 Years Smoked: 4 e-Cigarette/Vaping Use: Never Used Second Hand Smoke Exposure: No Advance Directives Date on File: 10/23/23 service: No Current occupational status: employed 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 ,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 Current occupational exposures/hazards: Yes Sexual orientation: Straight/Heterosexual Gender identity: Female Cognitive needs: No Hearing needs: No Vision needs: No Female Reproductive History Menstrual Age of Menarche: 14 Total pregnancies: 3 Full term: 2 Number of Living Children: 2 Ab induced: 1 Date of last pap smear: 02/12/22 (neg pap and hpv) History of abnormal pap smear: Yes (10/03 asc-h 11/03 colpo deb 2 12/03 leep deb 2) Date of Mammogram: 10/14/24 (Birad 2) History of abnormal mammogram: Yes (Invasive ductal carcinoma stage 2) Review of Systems Const All systems reviewed & are unremarkable except as noted in HPI and below Reports as per HPI Eyes Reports no additional complaints ENT Reports no additional complaints Card Reports no additional complaints Resp Reports no additional complaints GI Reports as per HPI and Reports no additional complaints Reports as per HPI Musc Reports no additional complaints Skin/Breast Reports as per HPI Neuro Reports no additional complaints Psych Reports no additional complaints Endo Reports no additional complaints Delgado/Lymph Reports no additional complaints Aller/Immun Reports no additional complaints Physical Exam Vital Signs: Last Vital Signs BP 120/76 05/19/25 14:21 BMI result Body Mass Index 26.8 Const General: cooperative, healthy appearing, no acute distress, well developed and alert Orientation/consciousness: patient oriented x3 HEENT Head: Yes normal to inspection Eyes General: appearance normal, both eyes and all related structures Neck Neck: Yes normal visual inspection Thyroid: Thyroid normal Chest Other: Left breast postsurgical scarring Chest palpation & inspection: normal inspection of the chest and other (no puckering, dimpling, peau de orange, retraction, discharge, masses) Breast/axilla inspection: normal inspection of the breasts Breast/axilla palpation: normal palpation of the breasts Resp Effort & Inspection: normal respiratory effort GI Inspection: Yes normal to inspection Palpation (GI): Soft to palpation Rectal Exam - Female: deferred General: Yes bladder normal to palpation External Female Exam: normal external appearance and normal appearance of the urethra Speculum Exam - Vagina: normal appearance of the vagina, normal palpation and normal vaginal discharge Speculum Exam - Cervix: normal appearance of the cervix and normal palpation Bimanual exam- vagina & uterus: normal bimanual exam, normal palpation, uterine size normal, bladder normal to palpation, normal palpation and non-tender Bimanual Exam- Adnexa, other: no masses Skin General skin exam: no rashes or lesions noted Rashes: no rashes Neuro General: patient oriented x3 Cognition (Neuro): normal cognition Extrem General: Yes normal to inspection Psych Attitude: cooperative Thought process: Normal thought process present Assessment & Plan Assessment & Plan (1) Encounter for well woman exam with routine gynecological exam: Code(s): Z01.419 - Encounter for gynecological examination (general) (routine) without abnormal findings Category: Medical Plan Discussed: Current recommendations for pap smears per ASCCP guidelines. Pap obtained. Breast awareness and periodic breast exams. Mammogram yearly. Maintain a healthy lifestyle including a well balanced diet and routine exercise. Vaginal moisturizers, lubricants and skin balms. Report any vaginal bleeding. Patient verbalizes understanding and agrees to the plan of care. She was given opportunity to ask questions and all questions were answered to the best of my ability. RTO in one year for annual track template maker examination. This note is constructed using voice recognition software. While every effort has been made to ensure accuracy, nougat candy maker helper errors may have been included. Orders: Orders HPV High risk Today R87.619 - Unspecified abnormal cytological findings in specimens from cervix uteri, Z01.419 - Encounter for gynecological examination (general) (routine) without abnormal findings Pap Smear Today R87.619 - Unspecified abnormal cytological findings in specimens from cervix uteri, Z01.419 - Encounter for gynecological examination (general) (routine) without abnormal findings Coding Level of Care Code Est Pt Prev Care 40-64y(27471) Diagnoses Encounter for well woman exam with routine gynecological exam Z01.419
[2025-05-19 14:21] VITALS: BP 120/76; BMI 26.8
--- OUTSIDE RECORDS SUMMARY | 2025-05-19 18:09 | XMS_ITS | Clinical Summary ---
Author Organization [facility] Address [address] [address] Phone Care Team Providers Care Director Of Primary Care Name Role Phone Maru Leone MD Primary [...] Description 11/17/2025 3:00 PM EDT Office Visit [facility] Rad Onc [address] [place] [id number] Gina Cavanaugh MD [address] [place] [address] [email or web address] Health Maintenance Due Date Last Done Comments [...] topic Medical Devices Not on file Insurance [employer] [facility] Giftology LEATHA RODRIGUEZ [id number] [employer] [facility] [employer] [facility]ICE [facility] CHOICE [facility] CHOICE [facility] CHOICE [facility] CHOICE Care Teams Director Of Primary Care Relationship Specialty Start Date End Date Maru Leone MD PCP - General Internal Medicine 01/14/24 Additional Source Comments The information contained in this document represents components of the legal health record. It is not the complete legal health record.[facility]
== END 2025-05-19 14:57 | disposition home or self-care (01) ==
LOC: HO.HWS 14:19
PROVIDERS: PCP Internal Medicine; Visit Provider Advanced Practice Midwife
DX: Z01.419 Encounter for gynecological examination (general) (routine) without abnormal findings (principal)
CPT/HCPCS: 99396; 99459

== ENCOUNTER 2025-06-28 14:50 | Outpatient (AMB) | payer OTHER, SELFPAY ==
--- NOTE | 2025-06-28 15:02 | A.OFFVIS_ITS ---
Vital Signs 3 06/28/25 15:07 Height 5 ft 8 in Weight 170 lb BMI 25.8 BP 146/89 H Blood Pressure Location Lt brachial Position Sitting Pulse 78 Intake Visit Reasons: 6 month breast exam Intake Note: Patient is seen in office for 6 month follow up visit, breast exam. Pt c/o: denies any concerns or changes mm:10/14/24 Coiler Required: No Accompanied by: Self / Same As Patient Allergies No Known Allergies Allergy (Verified 06/28/25 15:06) Medication List - Last Reconciled 06/30/25 by Elliott Clements MD biotin (Hair, Skin and Nails (biotin)) 10,000 mcg PO DAILY ferrous sulfate 325 mg PO DAILY letrozole 2.5 mg PO DAILY multivitamin 1 tab PO DAILY ondansetron 8 mg PO Q8H PRN ribociclib 400 mg PO DAILY ribociclib (Kisqali) 200 mg PO DAILY sertraline 50 mg PO DAILY sodium,potassium,mag sulfates 17.5-3.13-1.6 gram (Suprep Bowel Prep Kit) 480 mL orally; FOR COLONOSCOPY PREP zolpidem (Ambien) 10 mg PO BEDTIME PRN HPI Comments Details: 44-year-old female patient returning for a breast cancer follow-up examination. She was found to have a large irregular spiculated hypoechoic lobulated mass in the left breast on mammogram obtained 07/02/2023. The mass measured 3.2 cm and was highly suspicious for malignancy. She underwent ultrasound-guided core biopsy of a left breast mass and axillary lymph node on 07/08/2023. Pathology confirmed a left breast invasive ductal carcinoma, grade 2-3, ER/ TX positive, HER2 Krissy negative, Ki-67 40% ( high); lymph node left axilla was positive for metastatic carcinoma consistent with breast primary [id number] (stage IIB). She was evaluated by Dr. Allen and started on dose dense AC followed by Taxol q.week times 12. Genetic testing was negative. Left breast lumpectomy with right axillary node dissection was performed on 02/04/2024. Pathology confirmed residual invasive ductal carcinoma grade 2, 28 mm with less than 1 mm posterior margin. 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 One intramammary lymph node was negative for metastatic carcinoma. Two of 8 axillary lymph nodes were positive for metastatic ductal carcinoma (ypT2a [id number]). She feels much improved with better mobility of her left arm and less pain with motion. She completed radiation therapy and tolerated this well. She is now on letrozole 0.5 mg daily and Verzenio. Family history is significant for her sister developing breast cancer at the age of 48. She is with 1 AB. Her most recent mammogram of 10/14/2024 revealed postoperative changes in the left breast with no mammographic evidence of malignancy (BI-RADS 2). Follow-up mammogram in 1 year is recommended. [facility] Medical History Encounter for well woman exam with routine gynecological exam Encounter to establish care Physical exam Encounter for annual routine gynecological examination Screening for colon cancer Screening for hyperlipidemia Axillary lymphadenopathy Port-A-Cath in place Invasive ductal carcinoma of breast, stage 2 Abnormal Pap smear of cervix Gallstone of bile duct with obstruction Surgical History History of lumpectomy of left breast (02/04/24) Status post left breast lumpectomy Hx of breast biopsy History of ERCP History of tonsillectomy History of loop electrical excision procedure (LEEP) Hx of cholecystectomy Family History Sister Breast cancer, Onset Age: 47 Father HTN (hypertension) Mother HTN (hypertension) Thyroid disorder Social History Household Members: Other Household Members Other:: self Housing: House Are you a primary hospice patient care secretary to a significant other at home: No Do you presently have visiting nurse or other home services: No Alcohol intake: current Alcohol intake frequency: holidays/special occasions only Comment: counts correct Patient Tobacco Use Status: Former Tobacco user Tobacco use type: Cigarette Cigarette Packs Per Day: 1 Years Smoked: 4 e-Cigarette/Vaping Use: Never Used Second Hand Smoke Exposure: No Use of substances other than those prescribed or required for medical reasons: Unknown Have you been hit, kicked, punched, or otherwise hurt by someone within the past year? 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 Current occupational exposures/hazards: Yes Sexual orientation: Straight/Heterosexual Gender identity: Female Cognitive needs: No Hearing needs: No Vision needs: No Female Reproductive History Menstrual Age of Menarche: 14 Review of Systems Const All systems reviewed & are unremarkable except as noted in HPI and below Physical Exam Vital Signs: Last Vital Signs Pulse 78 06/28/25 15:07 BP 146/89 H 06/28/25 15:07 BMI result Body Mass Index 25.8 Const General: no acute distress Nutritional Appearance: well nourished Orientation/consciousness: patient oriented x3 Chest Other: Right breast: No skin change, nipple discharge, nipple retraction, palpable mass or enlarged lymph nodes. Left breast: Well-healed incisions in the left breast in a circumareolar location, with no palpable mass or new skin change, nipple discharge, or enlarged lymph nodes. Minimal radiation change noted in skin. Chest/axillae images: 2 1. 2. Resp Effort & Inspection: normal respiratory effort, no audible wheezes, no cough and no respiratory distress Skin Other: Warm, dry, no rash Neuro Other: Mobility Assessment: 1. 3 meter assessment time (seconds) 5 2. Gait observations: Normal balance and gait General: patient oriented x3 Extrem Other: No evidence of lymphedema Assessment & Plan Assessment & Plan (1) Invasive ductal carcinoma of breast, stage 2: Code(s): C50.919 - Malignant neoplasm of unspecified site of unspecified female breast Category: Medical Qualifiers: Laterality: left Qualified Code(s): C50.912 - Malignant neoplasm of unspecified site of left female breast Plan 44-year-old female patient status post neoadjuvant chemo therapyby left breast lumpectomy and axillary node dissection for invasive ductal carcinoma performed on 02/04/2024. She completed radiation therapy and tolerated this well. Examination today reveals no suspicious findings in either breast. Her most recent mammogram dated 10/14/2024 revealed postoperative changes but no mammographic evidence of malignancy (BI-RADS 2). Follow-up mammogram in 1 year is recommended. I recommended follow-up examination in 6 months, sooner PRN. She will continue to follow up with Dr. Allen. Coding Level of Care Code Est Pt Level 3 (92583) Complex visit Add On G2211 Diagnoses Infiltrating ductal carcinoma of left breast, stage 2 C50.912 Laterality: left
[2025-06-28 15:07] VITALS: BP 146/89; PULSE 78; BMI 25.8
--- OUTSIDE RECORDS SUMMARY | 2025-06-28 16:41 | XMS_ITS | Clinical Summary ---
Author Organization [facility] Address [address] [address] Phone Care Team Providers Care Independent Living Advisor Name Role Phone Maru Leone MD Primary Care Provider [phone] Allergies No known active allergies Medications cefuroxime [...] Description 11/17/2025 3:00 PM EDT Office [place] [facility] Rad Onc [address] [place] [address] Gina Cavanaugh MD [address] [place] [address] [email or web address] Health Maintenance Due Date Last Done Comments [...] topic Medical Devices Not on file Insurance [employer] [facility] [employer] LEATHA RODRIGUEZ [id number] [employer] [facility] [employer]av[employer] CHOICE [facility] CHOICE [facility] CHOICE [facility] CHOICE [facility] CHOICE Care Teams Independent Living Advisor Relationship Specialty Start Date End Date Maru Leone MD PCP - General Internal Medicine 01/14/24 Additional Source Comments The information contained in this document represents components of the legal health record. It is not the complete legal health record[facility]
== END 2025-06-28 15:16 | disposition home or self-care (01) ==
PROVIDERS: PCP Internal Medicine; Visit Provider Surgery
DX: C50.912 Malignant neoplasm of unspecified site of left female breast (principal)
CPT/HCPCS: 99213